=== PATIENT | female | born 1945 | race Two or more races ===

== ENCOUNTER 2024-09-13 16:19 | Inpatient (IN) | payer OTHER, MEDICAID, MEDICARE, SELFPAY ==
[2024-09-13] VITALS (7 sets, daily range): BP systolic 81–126; BP diastolic 49–71; PULSE 74–97; RESP 10–28; TEMP 36.3–36.6; O2SAT 92–100; BMI 15.5
--- NOTE | 2024-09-13 17:28 | XR_ITS ---
Examination: AP chest single view Technique: Upright AP chest single view Exam date and time: September 13, 2024 1736 hrs. Comparison October 19, 2023 Indications: Syncopal episodes today Findings: Extensive bilateral lung opacity Biapical pleural thickening Normal heart size Moderate osteopenia Impression: Extensive bilateral lung opacity, differential would include pneumonia, chronic parenchymal disease as well as underlying pulmonary fibrosis, clinical correlation advised
--- NOTE | 2024-09-13 17:28 | PD.EDRME ---
Rapid Medical Screening Exam RME Arrival date/time: 09/13/24 16:19 79-year-old female presents to the emergency department accompanied with daughter for complaints of generalized weakness fatigue decreased appetite and shortness of breath worsening over 1 week. I have greeted and performed a focused initial assessment of this patient. Initial appropriate labs ordered at this time. A comprehensive ED assessment and evaluation of the patient and analysis of all test and completion of medical decision making process will be conducted by additional ED provider. Chief Complaint: General Adult/Misc Complain Time Seen by Provider: 09/13/24 17:03 Vital signs: Vital Signs Temperature 97.9 F 09/13/24 16:31 Pulse Rate 97 09/13/24 16:31 Respiratory Rate 16 09/13/24 16:31 Blood Pressure 105/71 09/13/24 16:31 Pulse Oximetry (%) 99 09/13/24 16:31 Oxygen Delivery Method Room Air 09/13/24 16:31
[2024-09-13 18:20] LABS: Lactate (Lactic Acid) 1.8 mMol/L (0.4-2.0)
[2024-09-13 18:24] LABS: Basophils # (Auto) 0.1 Thou/mm3 (0.0-0.2); Basophils % (Auto) 1 % (0-2.5); Eosinophils % (Auto) 0 % (0-10); Hematocrit 50.1 % (36.0-46.0); Hemoglobin 16.7 g/dL (12.0-16.0); Immature Granulocytes % (Auto) 0 % (0-0); Immature Granulocytes Auto 0.02 Thou/mm3 (0.00-0.00); Lymphocytes # (Auto) 1.8 Thou/mm3 (1.0-4.8); Lymphocytes % (Auto) 23 % (10-50); Mean Corpuscular HGB Conc 33.3 g/dl (31.0-37.0); Mean Corpuscular Volume 93 fL (80-100); Monocytes # (Auto) 0.7 Thou/mm3 (0.0-0.8); Monocytes % (Auto) 9 % (0-12); Neutrophils # (Auto) 5.2 Thou/mm3 (1.8-7.7); Neutrophils % (Auto) 68 % (37-80); Nucleated Red Blood Cell % 0 /100 WBC (0); Platelet Count 136 Thou/mm3 (140-440); RDW Standard Deviation 52.4 fL (36.4-46.3); Red Blood Count 5.39 Miln/mm3 (4.00-5.20); White Blood Count 7.8 Thou/mm3 (3.6-11.0)
[2024-09-13 18:47] LABS: INR 1.1 (0.9-1.3); Partial Thromboplastin Time 27.2 Seconds (22.0-36.0)
[2024-09-13 18:52] LABS: Alanine Aminotransferase 21 U/L (10-49); Albumin/Globulin Ratio 1.3 (1.2-2.2); Alkaline Phosphatase 53 U/L (46-116); Anion Gap 10 (7-16); Aspartate Amino Transferase 41 U/L (0-34); BUN/Creatinine Ratio 18 Ratio (12-20); Bilirubin,Total 0.9 mg/dL (0.3-1.2); Blood Urea Nitrogen 22 mg/dL (9-23); Calcium 10.6 mg/dL (8.3-10.6); Calcium (Corrected) 10.6 mg/dL (8.5-10.1); Carbon Dioxide 29.8 mMol/L (20.0-31.0); Chloride 96 mMol/L (98-107); Creatinine (Component) 1.2 mg/dL (0.6-1.3); Estimated Creatinine Clearance 23.1 mL/min (>60); Globulin 3.1 gm/dL (2.3-3.5); Glucose 130 mg/dL (74-106); Osmolality,Calculated 277 (275-295); Potassium 4.5 mMol/L (3.4-5.1); Sodium 136 mMol/L (136-145); Total Protein 7.1 gm/dL (5.7-8.2); Troponin I < 0.020 ng/mL (0.0-0.045); eGFR 46 See Note
--- NOTE | 2024-09-13 19:55 | EDNOTE_ITS ---
ED General RME/HPI General Chief complaint: General Adult/Misc Complain Stated complaint: DECREASE INTAKE & WOUND TO COCCYX Time Seen by Provider: 09/13/24 17:03 Arrival date/time: 09/13/24 16:19 RME / HPI RME / HPI narrative: 09/13/24 16:19 79-year-old female presents to the emergency department accompanied with daughter for complaints of generalized weakness fatigue decreased appetite and shortness of breath worsening over 1 week. I have greeted and performed a focused initial assessment of this patient. Initial appropriate labs ordered at this time. A comprehensive ED assessment and evaluation of the patient and analysis of all test and completion of medical decision making process will be conducted by additional ED provider. ------ Dr. Callahan?s Main ED Evaluation: 79yo female with a recent diagnosis of dementia BIB her daughter presents to the ED for a chief complaint of decreased appetite. Daughter states the patient has not been eating and drinking fluids as much for the last 4 days. Daughter states she's noticed the patient started developing a bed sore on her bottom and was gasping for air last night. Daughter notes the patient has been more confused than usual. She wanted to take the patient in to see her PCP today, but they are on vacation, so she brought her in for evaluation. Patient reports associated shortness of breath. No further history provided. PCP: Jack Related Data Home Medications ?Medication ?Instructions ?Recorded ?Confirmed pantoprazole 40 mg tablet,delayed 40 mg PO DAILY 06/10/23 09/19/23 release propranolol 20 mg tablet 20 mg PO BID 06/10/23 09/19/23 Previous Rx's ?Medication ?Instructions ?Recorded lisinopril 20 mg tablet 20 mg PO QDAY 30 days #30 tabs 06/15/23 amoxicillin 500 mg-potassium 1 tab PO BID #20 tabs 09/21/23 clavulanate 125 mg tablet (Augmentin) doxycycline hyclate 100 mg capsule 100 mg PO BID #20 caps 09/21/23 Allergies Allergy/AdvReac Type Severity Reaction Status Date / Time acetaminophen Allergy Severe DIZZY Verified 09/13/24 16:23 hydrocodone Allergy Severe DIZZY Verified 09/13/24 16:23 codeine Allergy Mild MAKES ME Verified 09/13/24 16:23 SICK Review of Systems Review of Systems Systems Reviewed: All systems reviewed, normal except as documented Narrative Review of Systems: Gen: No fever, no chills, no weight loss, + decreased intake EYES: No discharge, no visual changes, no pain HEENT: No ear pain, no congestion, no sore throat PULM: + shortness of breath, no cough, no congestion CV: No chest pain, no dyspnea on exertion, no palpitations GI: No nausea, no vomiting, no diarrhea, no pain, no constipation : No frequency, no urgency, no dysuria Musc/skel: No joint pain, no back pain Skin: No rash. Warm and dry. + wound to buttocks Psyc: No hallucinations, no depression Heme/Lymph: No easy bleeding or bruising tendencies Neuro: No weakness, no headache Past Medical History Past Medical History NEUROLOGIC: Negative Neurological Disorders CARDIAC: Positive Cardiac Disorders and Hypertension; Negative Congestive Heart Failure RESPIRATORY: Positive Chronic Obstructive Pulmonary Disease (COPD), Asthma and Pulmonary Fibrosis GASTROINTESTINAL: Negative Gastrointestinal Disorders GENITOURINARY: Positive Genitourinary Disorders; Negative Renal Disease MUSCULOSKELETAL: Negative Musculoskeletal Disorders ENDOCRINE: Positive Hypothyroidism; Negative Endocrine Disorders, Diabetes Mellitus Type 1 or Diabetes Mellitus Type 2 HEMATOLOGIC: Negative Blood Disorders Surgical History SURGICAL: Positive Section Social History SMOKING STATUS: Never smoker SECOND HAND EXPOSURE: Yes ED Exam Narrative Physical exam: GENERAL APPEARANCE: alert and oriented x 4, well-developed, well-nourished, says 3-4 word sentences, in [id number] respiratory distress VITALS: All vitals were reviewed and the pulse ox is 92% on room air, which is slightly hypoxic according to my interpretation. HEENT: Normocephalic, atraumatic; pupils equal, round, reactive to light; EOMI; mucous membranes pink, moist; oropharynx clear NECK: Supple LUNGS: no wheezes, rales and rhonchi bilaterally, tachypneic HEART: Regular rate, regular rhythm; normal S1, S2; no murmurs ABDOMEN: non distended; normal BS; soft, no tenderness, no guarding, no rebound; no masses, no organomegaly, no hernia BACK: no CVA tenderness EXTREMITIES: atraumatic; no edema NEUROLOGIC: awake; alert and oriented x4; cranial nerves II-XII grossly intact; no focal sensory or motor deficits PSYCHIATRIC: appropriate mood and affect SKIN: warm, dry, normal color; no rashes Course Course Course Narrative: CXR is ordered for determining the etiology of shortness of breath. Quality Measures none Orders Category Date Time Status Bedside Blood Glucose NOW Care 09/13/24 17:28 Active Bedside COVID-19 Antigen Test NOW Care 09/13/24 20:14 Active Bedside Influenza A&B Antigen Test NOW Care 09/13/24 20:14 Active COVID-19 Screening Questionnaire NOW Care 09/13/24 20:09 Active Pharmacy Technician Per Diem STAT Care 09/13/24 17:28 Active Decision to Admit X1 Care 09/13/24 20:09 Active EKG (ED ONLY) *Do not use* NOW Care 09/13/24 17:28 Completed Miscellaneous Nursing Order NOW Care 09/13/24 20:12 Active EKG (ED Only) Stat Exams 09/13/24 17:28 Ordered XR chest 1V portable Stat Exams 09/13/24 17:28 Completed Blood Culture (Lab) Stat Lab 09/13/24 18:00 Received CBC Stat Lab 09/13/24 18:00 Completed Comprehensive Metabolic Panel Stat Lab 09/13/24 18:00 Completed Lactic Acid [Lactate (Lactic Acid)] Stat Lab 09/13/24 18:00 Completed Partial Thromboplastin Time Stat Lab 09/13/24 18:00 Completed Procalcitonin Stat Lab 09/13/24 18:00 Completed Prothrombin Time with INR Stat Lab 09/13/24 18:00 Completed Troponin I Stat Lab 09/13/24 18:00 Completed Urinalysis Stat Lab 09/13/24 20:01 Completed Urine Culture Stat Lab 09/13/24 20:01 Received Azithromycin Inj [Zithromax Inj] 500 mg Med 09/13/24 20:13 Active Sodium Chloride 0.9% 250 ml [Ns] 250 ml IV X1 Sodium Chloride 0.9% 1000 ml [Ns] 1,000 ml Med 09/13/24 20:16 Active IV 999 mls/hr cefTRIAXone/D5w 1gm IV premix [Rocephin/D5w 1gm IV Med 09/13/24 20:13 Active premix] 50 ml IV X1 Vital Signs Vital signs: Vital Signs Temperature 97.9 F 09/13/24 16:31 Pulse Rate 97 09/13/24 16:31 Respiratory Rate 16 09/13/24 16:31 Blood Pressure 105/71 09/13/24 16:31 Pulse Oximetry (%) 99 09/13/24 16:31 Oxygen Delivery Method Room Air 09/13/24 16:31 [facility] Patient data External records reviewed:: [facility] previous records (Per chart review, patient was admitted here on 09/16/23 for pneumonia.) Clinical information provided by:: patient Social determinants that could affect healthcare access:: none Patient has the following chronic illnesses:: COPD/ asthma, HTN, hypothyroidism, dementia How is presenting disease/condition affected by chronic disease/condition?: e xacerbated by Evaluation data The following diagnostics were reviewed and interpreted by me:: lab results, radiology exam(s) and EKG tracing(s) Lab and/or radiology exams considered but not ordered:: none Interpretation Summary: CBC is normal, CMP is normal, troponin is normal, Lactic Acid is normal, Procalcitonin is normal, UA shows the patient is dehydrated, according to my interpretation. EKG done at 1739, NSR, rate of 71, normal axis, no ectopy, no acute ischemia, according to my interpretation. ----- [facility] Report Signed Patient: ELIU MICHEL [facility]. Record#: [id number] Birthdate: 1945 Age/Sex: 79 / F Location: [facility] Attending Dr: Ordering Physician: Joseline Melo Date of Service: 09/13/24 Procedure(s): XR chest 1V portable Accession Number(s): [id number] cc: Eulogio Cote MD; Cristina Malcolm MD; Joseline Melo~ Examination: AP chest single view Technique: Upright AP chest single view Exam date and time: September 13, 2024 1736 hrs. Comparison October 19, 2023 Indications: Syncopal episodes today Findings: Extensive bilateral lung opacity Biapical pleural thickening Normal heart size Moderate osteopenia Impression: Extensive bilateral lung opacity, differential would include pneumonia, chronic parenchymal disease as well as underlying pulmonary fibrosis, clinical correlation advised Dictated By: Eulogio Cote MD Signed By: <Electronically signed by Eulogio Cote MD in [place]> 09/13/24 1801 Medications Medications considered but not ordered:: none Medication administrations:: Medication Administration History Ceftriaxone Sodium/Dextrose (Rocephin/D5w 1gm Iv Premix) 50 mls @ 100 mls/hr IV X1 ONE Stop: 09/13/24 20:42 Azithromycin 500 mg/ Sodium (Chloride) 250 mls @ 250 mls/hr IV X1 ONE Stop: 09/13/24 21:12 Sodium Chloride (Ns) 1,000 mls @ 999 mls/hr IV .Q1H1M ONE Stop: 09/13/24 21:16 see above Consultations Consultation(s) initiated? (list below): Yes Consultation #1 (Physician, Specialty, Details): Discussed case with [the resident physician, attending Dr. Cazares] from Hospitalist service regarding admission. Discussed patients ED course, exam findings, labs, and radiology results. The Hospitalist [agrees] to accept the patient for admission. Time: 20:18 Diagnosis Differential Diagnosis ED Complaint MDM: pneumonia, COVID, Influenza, dehydration, electrolyte abnormality Most likely diagnosis given after review of the tests above:: Hypoxia, Bilateral pneumonia, Dehydration, Failure to thrive Admission Indicated Admission indicated?: indicated Explain why admission is indicated or not indicated:: Admission criteria met. Admission Request Was there a request for admission?: Yes Admission Attestation Admission request attestation: Discussed case with [] from Hospitalist service regarding admission. Discussed patients ED course, exam findings, labs, and radiology results. The Hospitalist [agrees,declines] to accept the patient for admission. Disposition Plan Disposition Plan: Admit Medical Decision Making MDM Narrative MDM Narrative: Scribe Attestation: 09/13/24 - Jacklyn Chatterjee am scribing for and in the presence of Dr. Callahan. Differential Diagnosis Differential Diagnosis: pneumonia, COVID, Influenza, dehydration, electrolyte abnormality Lab Data 09/13/24 18:00 09/13/24 18:00 Labs: Lab Results 09/13/24 09/13/24 Range/Units 18:00 20:01 WBC 7.8 (3.6-11.0) Thou/mm3 RBC 5.39 H (4.00-5.20) Miln/mm3 Hgb 16.7 H (12.0-16.0) g/dL Hct 50.1 H (36.0-46.0) % MCV 93 (80-100) fL MCH 31.0 (25.0-35.0) pg MCHC 33.3 (31.0-37.0) g/dl RDW Std Deviation 52.4 H (36.4-46.3) fL Plt Count 136 L (140-440) Thou/mm3 Neut % (Auto) 68 (37-80) % Lymph % (Auto) 23 (10-50) % [place] % (Auto) 9 (0-12) % Eos % (Auto) 0 (0-10) % Baso % (Auto) 1 (0-2.5) % Neut # (Auto) 5.2 (1.8-7.7) Thou/mm3 Lymph # (Auto) 1.8 (1.0-4.8) Thou/mm3 [place] # (Auto) 0.7 (0.0-0.8) Thou/mm3 Eos # (Auto) 0.0 (0.0-0.5) Thou/mm3 Baso # (Auto) 0.1 (0.0-0.2) Thou/mm3 Immature Gran # (Auto) 0.02 H (0.00-0.00) Thou/mm3 Absolute Nucleated RBC 0.00 (0.00-0.00) Thou/mm3 Immature Gran % 0 (0-0) % Nucleated RBC % 0 (0) /100 WBC PT 12.0 (9.0-12.2) Seconds INR 1.1 (0.9-1.3) APTT 27.2 (22.0-36.0) Seconds Sodium 136 (136-145) mMol/L Potassium 4.5 (3.4-5.1) mMol/L Chloride 96 L (98-107) mMol/L Carbon Dioxide 29.8 (20.0-31.0) mMol/L Anion Gap 10 (7-16) BUN 22 (9-23) mg/dL Creatinine 1.2 (0.6-1.3) mg/dL Estim Creat Clear Calc 23.1 L (>60) mL/min eGFR 46 L (60 - ) See Note BUN/Creatinine Ratio 18 (12-20) Ratio Glucose 130 H (74-106) mg/dL Calculated Osmolality 277 (275-295) Lactic Acid 1.8 (0.4-2.0) mMol/L Calcium 10.6 (8.3-10.6) mg/dL Corrected Calcium 10.6 H (8.5-10.1) mg/dL Total Bilirubin 0.9 (0.3-1.2) mg/dL AST 41 H (0-34) U/L ALT 21 (10-49) U/L Alkaline Phosphatase 53 (46-116) U/L Troponin I < 0.020 (0.0-0.045) ng/mL Total Protein 7.1 (5.7-8.2) gm/dL Albumin 4.0 (3.4-4.8) gm/dL Globulin 3.1 (2.3-3.5) gm/dL Albumin/Globulin Ratio 1.3 (1.2-2.2) Procalcitonin 0.10 (0.0-0.49) ng/ml Ur Collection Type Catheter Urine Color Yellow (Lt Yel-Yel) Urine Clarity Clear (Clear/Hazy) Urine pH 6.0 (5.0-7.0) Ur Specific [place] 1.026 (1.001-1.035) Urine Protein 1+ A (Neg - Trace) Urine Glucose (UA) Negative (Negative) Urine Ketones 1+ A (Negative) Urine Blood Negative (Negative) Urine Nitrite Negative (Negative) Urine Bilirubin 1+ A (Negative) Urine Urobilinogen (Auto) 4.0 (0.0-1.0) mg/dL Ur Leukocyte Esterase Negative (Negative) Urine RBC 3 (0-3) /hpf Urine WBC 3 (0-5) /hpf Ur Squamous Epith Cells < 1 (0-5) /hpf Urine Bacteria None (None) Hyaline Casts 1 (0-1) /hpf Critical Care Time Critical Care Time Critical Care Time: Yes Total Critical Care Time (min.): 35 Attestation: The high probability of sudden, clinically significant deterioration in the patient?s condition required the highest level of my preparedness to intervene urgently. The services I provided to this patient were to treat and/or prevent clinically significant deterioration. Services included the following: chart data review, reviewing nursing notes and/or old charts, documentation time, sales enablement consultant collaboration regarding findings and treatment options, medication orders and management, direct patient care, vital sign assessments and ordering, interpreting and reviewing diagnostic studies and lab tests. Aggregate critical care time includes only time during which I was engaged in work directly related to the patient?s care, as described above, whether at bedside or elsewhere in the Emergency Department. It did not include time spent performing other reported procedures or the services of residents, students, nurses or physician assistants. Discharge Plan Plan Patient Disposition: Admit Acute Care w/in Hospital Prescriptions/Referrals Prescriptions/Med Rec: No Action doxycycline hyclate 100 mg capsule 100 mg PO BID Qty: 20 0RF amoxicillin-pot clavulanate [Augmentin] 500-125 mg tablet 1 tab PO BID Qty: 20 0RF pantoprazole 40 mg tablet,delayed release (DR/EC) 40 mg PO DAILY propranolol 20 mg tablet 20 mg PO BID lisinopril 20 mg tablet 20 mg PO QDAY 30 Days Qty: 30 3RF Referrals: Cristina Santiago MD [Primary Care Provider] - In 1 week Problem List Clinical Impression: Hypoxia, Bilateral pneumonia, Dehydration, Failure to thrive Patient/Caregiver Discharge Instructions Print Language: Ukrainian Stand Alone Forms: [facility] Award Info., Patient Portal Info Letter
[2024-09-13 20:12] LABS: Bilirubin,Urine 1+ (Negative); Blood,Urine Negative (Negative); Clarity,Urine Clear (Clear/Hazy); Collection Type, Urine Catheter; Color,Urine Yellow (Lt Yel-Yel); Glucose, Urine Negative (Negative); Hyaline Casts,Urine 1 /hpf (0-1); Ketones,Urine 1+ (Negative); Leukocyte Esterase,Urine Negative (Negative); Nitrite,Urine Negative (Negative); Protein,Urine 1+ (Neg - Trace); RBC,Urine 3 /hpf (0-3); Specific Gravity,Urine 1.026 (1.001-1.035); Squamous Epithelial Cell,Urine < 1 /hpf (0-5); WBC,Urine 3 /hpf (0-5)
[2024-09-13] MEDS: AZITHROMYCIN INJ 500 MG in SODIUM CHLORIDE 0.9% 250 ML 250 ML 250 MG IV (20:38)
[2024-09-13] MEDS: SODIUM CHLORIDE 0.9% 1000 ML 1,000 ML 999 ML IV (20:40)
[2024-09-13] MEDS: cefTRIAXone/D5w 1gm IV premix 50 ML IV (20:41)
[2024-09-13] MEDS: SODIUM CHLORIDE 0.9% 1000 ML 1,000 ML 100 ML IV (22:49)
[2024-09-13] MEDS: SODIUM CHLORIDE 0.9% 500 ML 500 ML 999 ML IV (22:49)
--- NOTE | 2024-09-13 23:21 | ESHP_ITS ---
Documentation for date of: 09/13/24 [facility] History of Present Illness Chief complaint: poor oral intake History of present illness: Patient is a 79-year-old female with past medical history significant for history of tobacco use, 30-pack year, chronic bronchiectasis with intersitital scarring, hypothyroidism, hypertension, dementia, GERD, depression who presented to the ED with shortness of breath and poor oral intake for the last 4 days. Most of the history was obtained from patient's daughter, Carmen who was at bedside as patient is a poor historian. Patient's baseline mentation is only alert and oriented x 1 to name. Per daughter, patient also has been having some abdominal pain especially on palpation. Patient is able to ambulate with walker, and uses a wheelchair when she leaves her home, however is mostly bedbound. Despite having poor oral intake, patient was able to successfully swallow her p.o. pain meds morning. Per daughter, patient denies any cough, chest pain, LE pain, dizziness, and headache. ROS: as mentioned above PMHx: as mentioned above PSHx: None FHx: Noncontributory Social: Lives with daughter Carmen; denies any recent smoking, EtoH use, or ilicit drug use Meds:Patient takes lisinopril 20 mg daily, pantoprazole 40 mg daily, propranolol 20 mg twice daily, donepezil 10 mg at bedtime, mirtazapine 15 mg at bedtime, levothyroxine 50 mcg daily Allergies: Per chart, patient is allergic to acetaminophen, hydrocodone, codeine ED course: In the ED, patient vital signs were unremarkable. Labs significant for dehydration, low platelet count, and slightly elevated calcium of 10.6. Lactic acid normal at 1.8. Pro-Hao negative. UA shows 1+ protein, 1+ ketones, 1+ bilirubin, but negative for UTI. Chest x-ray shows extensive bilateral lung opacity suggesting underlying chronic parenchymal disease. Patient given dose of ceftriaxone and azithromycin x 1 for possible pneumonia. Patient admitted to [facility] for further management of RHONDA. Review of Systems Review of Systems Systems Reviewed: All systems reviewed, normal except as documented Exam Vital Signs Temp Pulse Resp BP Pulse Ox O2 Del Method 97.6 F 74 16 105/51 L 100 Room Air 09/13/24 22:53 09/13/24 22:53 09/13/24 22:53 09/13/24 22:53 09/13/24 22:53 09/13/24 22:53 Narrative Exam General Appearance: Pt in mild acute distress laying comfortably in bed. HEENT: NC/AT, no scleral icterus, no conjunctival pallor, dry mucous membranes Lungs: Equal air entry, but diminished lung sounds throughout, no wheezes or crackles appreciated. No accessory muscle use. CVS: RRR, S1/S2 heard, no murmurs or rubs appreciated ABD: Mild epigastric tenderness to palpation, soft, non-tender, non-distended, BS + in all 4 quadrants EXT: no deformity/edema/lesions/cyanosis/clubbing, radial pulses 2+ BL, DP pulses 2 + BL SKIN: Skin exam normal without any rashes. Neuro: A&O x 1 (name). No gross neurological deficits. Motor and sensory grossly intact in B/L UL and LL. Results: Labs 09/14/24 05:51 09/13/24 18:00 Labs: Short CBC 09/13/24 Range/Units 18:00 WBC 7.8 (3.6-11.0) Thou/mm3 Hgb 16.7 H (12.0-16.0) g/dL Hct 50.1 H (36.0-46.0) % Plt Count 136 L (140-440) Thou/mm3 BMP 09/13/24 18:00 Sodium 136 Potassium 4.5 Chloride 96 L Carbon Dioxide 29.8 BUN 22 Creatinine 1.2 Glucose 130 H Calcium 10.6 Cardiac Enzymes 09/13/24 Range/Units 18:00 Troponin I < 0.020 (0.0-0.045) ng/mL Liver Function 09/13/24 Range/Units 18:00 Total Bilirubin 0.9 (0.3-1.2) mg/dL AST 41 H (0-34) U/L ALT 21 (10-49) U/L Alkaline Phosphatase 53 (46-116) U/L Albumin 4.0 (3.4-4.8) gm/dL Urine 09/13/24 Range/Units 20:01 Urine Color Yellow (Lt Yel-Yel) Urine Clarity Clear (Clear/Hazy) Urine pH 6.0 (5.0-7.0) Ur Specific [place] 1.026 (1.001-1.035) Urine Protein 1+ A (Neg - Trace) Urine Glucose (UA) Negative (Negative) Quality Measures Quality Measures none Advance care planning discussed with:: patient and child Medications Home Medications and Allergies Home Medications ?Medication ?Instructions ?Recorded ?Confirmed ?Type pantoprazole 40 mg tablet,delayed 40 mg PO DAILY 06/10/23 09/14/24 History release propranolol 20 mg tablet 20 mg PO BID 06/10/23 09/14/24 History donepezil 10 mg tablet (Aricept) 10 mg ONCE HS 09/14/24 09/14/24 History levothyroxine 50 mcg tablet 50 mcg 1XD 09/14/24 09/14/24 History mirtazapine 15 mg tablet 15 mg HS 09/14/24 09/14/24 History Allergies Allergy/AdvReac Type Severity Reaction Status Date / Time acetaminophen Allergy Severe DIZZY Verified 09/13/24 16:23 hydrocodone Allergy Severe DIZZY Verified 09/13/24 16:23 codeine Allergy Mild MAKES ME Verified 09/13/24 16:23 SICK Visit Medications Heparin Sodium (Porcine) (Heparin Sod Inj 5000 Unit/Ml Vial) 5,000 unit SC Q12HR [facility] Stop: 09/28/24 08:59 Sodium Chloride (Ns) 1,000 mls @ 100 mls/hr IV .Q10H SANDRA Stop: 10/13/24 22:14 Last Admin: 09/13/24 22:49 Dose: 100 mls/hr Pantoprazole Sodium (Pantoprazole Inj 40 Mg Vial) 40 mg IVP QDAY [facility] Stop: 10/14/24 08:59 Sennosides (Senna Tablet) 1 tab PO QDAY SANDRA; Protocol Stop: 10/14/24 08:59 Discontinued Medications Ceftriaxone Sodium/Dextrose (Rocephin/D5w 1gm Iv Premix) 50 mls @ 100 mls/hr IV X1 ONE Stop: 09/13/24 20:42 Last Infusion: 09/13/24 21:23 Dose: Infused Azithromycin 500 mg/ Sodium (Chloride) 250 mls @ 250 mls/hr IV X1 ONE Stop: 09/13/24 21:12 Last Infusion: 09/13/24 21:42 Dose: Infused Sodium Chloride (Ns) 1,000 mls @ 999 mls/hr IV .Q1H1M ONE Stop: 09/13/24 21:16 Last Infusion: 09/13/24 21:43 Dose: Infused Sodium Chloride (Ns) 500 mls @ 999 mls/hr IV .Q31M ONE Stop: 09/13/24 22:48 Last Infusion: 09/13/24 23:18 Dose: Infused Assessment & Plan Plan Patient is a 79-year-old female with past medical history significant for history of tobacco use, 30-pack year, chronic bronchiectasis with intersitital scarring, hypothyroidism, hypertension, dementia, GERD, depression who presented to the ED with shortness of breath and poor oral intake for the last 4 days admitted to [facility] for further management of RHONDA. #RHONDA #Dysphagia, unspecified Cr on presentation was 1.2. Baseline is 0.6. Most likely pre-renal d/t poor PO intake and dehydration 2/2 worsening dementia vs dysphagia, as patient's last oral intake was 4 days ago. Patient failed bedside swallow in the ED. Per patient's daughter, Sara, patient sometimes forgets to swallow her p.o. pain meds, and starts chewing them, but is redirectable. -Received a total of 1.5 L bolus NS -Will start a LR @100 ml/hr around 11 PM -Avoid nephrotoxin agents -Continue to monitor signs and symptoms -Speech eval in a.m. -CT head to assess for any structural changes due to new dysphagia-like symptoms #Dementia Patient takes home donepezil 10 mg at bedtime, patient's current mentation is at baseline, A and O x 1 to name -Restart home donepezil after patient passes bedside swallow -F/u with CT head -Consider Tele-neuro consult if patient's dysphagia worsens #Hx of chronic bronchiectasis with interstitial scarring Patient has an inhaler as needed at home. Patient also has a 30 pack smoking hx. Patient given Ceftriaxone and Azithromycin in the ED x 1. Patient doesn't appear to be having any acute infectious processes. At this time, will not start any antibiotics. #Hypothyroidism Patient takes home levothyroxine 50 mcg, however also takes propranolol 20 mg twice daily Patient does have a remote history of hyperthyroid dz and has taken propranolol with methimazole before. -Pending medication rec -Ordered TSH for AM #Hypertension Patient takes home lisinopril 20 mg -We will hold lisinopril for now and lieu of failed bedside swallow and RHONDA -Continue to monitor vital signs and consider IV as needed medication if blood pressure continues to rise #GERD Patient takes home pantoprazole 40 mg daily -Will start IV pantoprazole and lieu of failed bedside swallow -Transition to p.o. pantoprazole once patient is able to tolerate p.o. diet #Depression Patient takes home mirtazapine -Restart after patient passes bedside swallow and can tolerate p.o. intake Health Maintenance: DVT prophylaxis: Heparin subcu Diet: N.p.o., pending speech eval Irvin: No Lines: PIV Supplemental O2: As needed CODE STATUS: DNR/DNI, POLST form filled with PCP per Carmen, patient's daughter Disposition: Admitted to [facility] for further management of RHONDA and possible new onset dysphagia. Pending physical therapy for possible SNF. Patient's plan and care discussed with my attending, Dr. Sage De Luna MD PGY-2 Attending Provider Attestation/Addendum I, Sarbjit Cazares MD attest that I was physically present for the alves portions of the service and evaluated the patient with the resident and I reviewed and discussed the case with the resident and agree with the resident's findings and plans of care as documented above 79-year-old female with past medical history of chronic tobacco use, chronic bronchiectasis with scarring, hypothyroidism, hypertension, baseline dementia presents to the ED with chief complaint of shortness of breath, poor oral intake for the last 4 days. Patient has baseline dementia per daughter and her symptoms have acutely worsened and states that her mother has been refusing p.o. intake for the last 4 days. Labs show RHONDA likely prerenal secondary to poor intake, however unclear reason for acute changes in p.o. intake. Given fluid bolus in the ER and failed swallow eval, so will obtain formal swallow eval in the morning and continue patient on IV fluids with LR and repeat renal function in the a.m. Patient's daughter also expresses interest in SNF placement as she is unable to care for her at home in her current state and feels that she is progressively declining. CT head obtained and negative for any acute changes to suggest structural etiology of decreased p.o. intake and infectious workup all negative at this time. Sarbjit Cazares MD
--- NOTE | 2024-09-13 23:26 | PC.NURSE ---
REPORT CALLED TO MONA CHAVEZ. ALL QUESTIONS ASKED AND ANSWERED. PATIENT TRANSFERRED TO ROOM BY STAFF. PATIENT REMAINS ON ROOM AIR. NO DISTRESS ON TRANSPORT.
[2024-09-14] VITALS (8 sets, daily range): BP systolic 123–150; BP diastolic 69–96; PULSE 72–83; RESP 16–92; TEMP 36.1–36.6; O2SAT 91–100; BMI 17.0
--- NOTE | 2024-09-14 00:32 | XR_ITS ---
Examination: CT brain head without contrast. 2-D sagittal coronal reconstructions Date and time of exam:September 14, 2024 0235 hrs. Indications: Worsening dysphagia, syncopal episodes this week CTDI: vol (mGy):43.2 DLP: (mGycm):811 Technique: Multiple CT axial sections of the brain have been obtained, 5 mm slice thickness. Contrast has not been administered. 2-D sagittal, coronal reconstructions have been obtained Low dose protocols were performed. One or more of the following dose reduction techniques were used; automated exposure control, adjustment of the mA and/or KV according to patient size, use of iterative reconstruction technique. Findings: No significant ventricular enlargement. Intra-axial or extra-axial hemorrhage density is not seen. No mass effect or midline shift Basal cisterns are not remarkable. Fourth ventricle is midline. Cranial vault intact. Impression: Negative for acute hemorrhage, mass effect or midline shift
[2024-09-14 01:42] LABS: Free T4 (Free Thyroxine) 1.93 ng/dL (0.89-1.76)
--- NOTE | 2024-09-14 03:49 | PRELIM_ITS ---
CT scan of the head without intravenous contrast (axial sections with sagittal and coronal reformats) September 14, 2024 0235 hours Clinical history: worsening dysphagia Comparison: No prior study is ginette ilable for comparison. Findings:There is no evidence of intracranial hemorrhage, mass effect or midli ne shift. There are periventricular white matter hypodensities, compatible with chronic small vessel ischemia. There is mild volume loss. Basal ganglia calcifications are present bilaterally.The calvari um is unremarkable. The mastoid air cells and the visualized paranasal sinuses are clear.Impression:N o evidence of intracranial hemorrhage, mass effect or midline shift.Periventricular chronic small ves leanna ischemia and volume loss. Report Electronically Signed By: Sherrie Machado 09/14/2024 3:48:24 AM [EST ]
[2024-09-14 06:30] LABS: Basophils % (Auto) 1 % (0-2.5); Eosinophils % (Auto) 0 % (0-10); Hematocrit 46.3 % (36.0-46.0); Hemoglobin 15.1 g/dL (12.0-16.0); Immature Granulocytes % (Auto) 0 % (0-0); Immature Granulocytes Auto 0.01 Thou/mm3 (0.00-0.00); Lymphocytes # (Auto) 1.5 Thou/mm3 (1.0-4.8); Lymphocytes % (Auto) 25 % (10-50); Mean Corpuscular HGB Conc 32.6 g/dl (31.0-37.0); Mean Corpuscular Hemoglobin 31.1 pg (25.0-35.0); Mean Corpuscular Volume 96 fL (80-100); Monocytes # (Auto) 0.6 Thou/mm3 (0.0-0.8); Monocytes % (Auto) 9 % (0-12); Neutrophils # (Auto) 3.9 Thou/mm3 (1.8-7.7); Neutrophils % (Auto) 65 % (37-80); Nucleated Red Blood Cell % 0 /100 WBC (0); Platelet Count 120 Thou/mm3 (140-440); RDW Standard Deviation 54.4 fL (36.4-46.3); Red Blood Count 4.85 Miln/mm3 (4.00-5.20); White Blood Count 5.9 Thou/mm3 (3.6-11.0)
[2024-09-14 07:03] LABS: Alanine Aminotransferase 18 U/L (10-49); Albumin, Serum 3.4 gm/dL (3.4-4.8); Albumin/Globulin Ratio 1.4 (1.2-2.2); Alkaline Phosphatase 47 U/L (46-116); Anion Gap 6 (7-16); Aspartate Amino Transferase 29 U/L (0-34); BUN/Creatinine Ratio 23 Ratio (12-20); Bilirubin,Total 0.5 mg/dL (0.3-1.2); Blood Urea Nitrogen 18 mg/dL (9-23); Calcium 9.3 mg/dL (8.3-10.6); Calcium (Corrected) 9.8 mg/dL (8.5-10.1); Carbon Dioxide 25.7 mMol/L (20.0-31.0); Chloride 106 mMol/L (98-107); Creatinine (Component) 0.8 mg/dL (0.6-1.3); Estimated Creatinine Clearance 36.9 mL/min (>60); Globulin 2.5 gm/dL (2.3-3.5); Glucose 86 mg/dL (74-106); Magnesium 1.5 mg/dL (1.6-2.6); Osmolality,Calculated 276 (275-295); Phosphorous 3.1 mg/dL (2.4-5.1); Potassium 3.3 mMol/L (3.4-5.1); Sodium 138 mMol/L (136-145); Thyroid Stimulating Hormone 0.01 uIU/mL (0.55-4.78); Total Protein 5.9 gm/dL (5.7-8.2); eGFR > 60 See Note
[2024-09-14 08:48] LABS: Free T3 1.5 pg/mL (2.3-4.2)
[2024-09-14] MEDS: POTASSIUM CHL 10 mEq IVPB 10 MEQ/100 ML BAG 100 MEQ IV ×4 (09:14→13:01)
[2024-09-14] MEDS: Magnesium Sulfate 4 GM Ivpb 4 GM/50 ML BAG IV (09:15)
--- NOTE | 2024-09-14 09:35 | ESPR_ITS ---
<Statement entered by Rosmery Miller MD - 09/14/24 14:36> Patient is a 79 year old female with PMH of chronic tobacco use, chronic bronchiectasis with scarring, thyroid disease, HTN, baseline demention who presents to the ER for shortness of breath and poor oral intake, and admitted for dysphagia and RHONDA. For her RHONDA, she recieved IVF and RHONDA resolved; creatinine back to 0.8. Patient passed swallow eval today. Of note, patient TSH 0.01 with elevated T4. Will half her levothyroxine. Family expressed interest in SNF placement, so will get physical therapy eval for her as well. Rosmery Miller MD PGY-3 Documentation for date of: 09/14/24 Subjective Subjective Interval history: Patient was seen and examined at bedside this AM. No acute exents overnight. Patient tolerating diet, adequate urine output and mentation is at baseline dementia. Patient endorses improvement of appetite. Cr 0.8, K3.3, Mg 1.5 TSH 0.01 Repleted with KCl 40 mEq IV x 1 and magnesium sulfate 4 g IV x 1 Ordered thyroid peroxidase and thyroglobulin antibodies Exam Vital Signs Temp Pulse Resp BP Pulse Ox O2 Del Method 97.8 F 72 18 123/69 92 L Room Air 09/14/24 08:00 09/14/24 08:55 09/14/24 08:55 09/14/24 08:00 09/14/24 08:00 09/14/24 08:00 Narrative Exam Constitutional Alert, oriented x 1 [person] and comfortable. Elderly female, bitemporal wasting, cachectic. HEENT Vision grossly intact. Patent nares. Trachea midline Respiratory Chest normal on inspection and fine crackles auscultated at bases bilaterally Cardiovascular S1 and S2 audible, RRR. No murmurs carotid bruit. No gross JVD. Abdominal Soft and non tender to palpation in all quadrants. BS + Genitourinary No bladder tenderness, no flank pain. Normal to palpation Musculoskeletal Extremities tone within normal limits. No LE edema. Neurological CN II - XII grossly intact. Extremity motor and sensation grossly intact. R esting tremor Skin Warm, dry and intact. No apparent lesions. Psychiatric Patient has good affect, is cooperative Objective Labs 09/15/24 04:20 09/15/24 04:20 Labs: Laboratory Results - last 24 hr 09/13/24 09/13/24 09/13/24 18:00 18:06 20:01 WBC 7.8 RBC 5.39 H Hgb 16.7 H Hct 50.1 H MCV 93 MCH 31.0 MCHC 33.3 RDW Std Deviation 52.4 H Plt Count 136 L Neut % (Auto) 68 Lymph % (Auto) 23 [place] % (Auto) 9 Eos % (Auto) 0 Baso % (Auto) 1 Neut # (Auto) 5.2 Lymph # (Auto) 1.8 [place] # (Auto) 0.7 Eos # (Auto) 0.0 Baso # (Auto) 0.1 Immature Gran # (Auto) 0.02 H Absolute Nucleated RBC 0.00 Immature Gran % 0 Nucleated RBC % 0 PT 12.0 INR 1.1 APTT 27.2 Sodium 136 Potassium 4.5 Chloride 96 L Carbon Dioxide 29.8 Anion Gap 10 BUN 22 Creatinine 1.2 Estim Creat Clear Calc 23.1 L eGFR 46 L BUN/Creatinine Ratio 18 Glucose 130 H Calculated Osmolality 277 Lactic Acid 1.8 Calcium 10.6 Corrected Calcium 10.6 H Phosphorus Magnesium Total Bilirubin 0.9 AST 41 H ALT 21 Alkaline Phosphatase 53 Troponin I < 0.020 Total Protein 7.1 Albumin 4.0 Globulin 3.1 Albumin/Globulin Ratio 1.3 Procalcitonin 0.10 TSH Free T4 1.93 H Free T3 pg/dL Ur Collection Type Catheter Urine Color Yellow Urine Clarity Clear Urine pH 6.0 Ur Specific Collyer 1.026 Urine Protein 1+ A Urine Glucose (UA) Negative Urine Ketones 1+ A Urine Blood Negative Urine Nitrite Negative Urine Bilirubin 1+ A Urine Urobilinogen (Auto) 4.0 Ur Leukocyte Esterase Negative Urine RBC 3 Urine WBC 3 Ur Squamous Epith Cells < 1 Urine Bacteria None Hyaline Casts 1 09/14/24 05:51 WBC 5.9 RBC 4.85 Hgb 15.1 Hct 46.3 H MCV 96 MCH 31.1 MCHC 32.6 RDW Std Deviation 54.4 H Plt Count 120 L Neut % (Auto) 65 Lymph % (Auto) 25 [place] % (Auto) 9 Eos % (Auto) 0 Baso % (Auto) 1 Neut # (Auto) 3.9 Lymph # (Auto) 1.5 [place] # (Auto) 0.6 Eos # (Auto) 0.0 Baso # (Auto) 0.0 Immature Gran # (Auto) 0.01 H Absolute Nucleated RBC 0.00 Immature Gran % 0 Nucleated RBC % 0 PT INR APTT Sodium 138 Potassium 3.3 L D Chloride 106 Carbon Dioxide 25.7 Anion Gap 6 L BUN 18 Creatinine 0.8 Estim Creat Clear Calc 36.9 L eGFR > 60 BUN/Creatinine Ratio 23 H Glucose 86 Calculated Osmolality 276 Lactic Acid Calcium 9.3 Corrected Calcium 9.8 Phosphorus 3.1 Magnesium 1.5 L Total Bilirubin 0.5 AST 29 ALT 18 Alkaline Phosphatase 47 Troponin I Total Protein 5.9 Albumin 3.4 D Globulin 2.5 Albumin/Globulin Ratio 1.4 Procalcitonin TSH 0.01 L* Free T4 Free T3 pg/dL 1.5 L Ur Collection Type Urine Color Urine Clarity Urine pH Ur Specific [place] Urine Protein Urine Glucose (UA) Urine Ketones Urine Blood Urine Nitrite Urine Bilirubin Urine Urobilinogen (Auto) Ur Leukocyte Esterase Urine RBC Urine WBC Ur Squamous Epith Cells Urine Bacteria Hyaline Casts Quality Measures Quality Measures none Advance care planning discussed with:: other (POLST form) Assessment & Plan Assessment Current Active Medications: Generic Name Dose Route Start Last Admin Trade Name Freq PRN Reason Stop Dose Admin Albuterol 2 puff 09/14/24 00:21 Albuterol Inh 8 Gm INH 10/14/24 00:20 Q4HR PRN SHORTNESS OF BREATH OR WHEEZE Heparin Sodium (Porcine) 5,000 unit 09/14/24 09:00 Heparin Sod Inj 5000 Unit/Ml Vial SC 09/28/24 08:59 Q12HR SANDRA Sodium Chloride 1,000 mls @ 100 mls/hr 09/13/24 22:15 09/13/24 22:49 Ns IV 10/13/24 22:14 100 mls/hr .Q10H SANDRA Administration Magnesium Sulfate 4 gm in 50 mls @ 12.5 mls/hr 09/14/24 07:45 Magnesium Sulfate Ivpb IV 09/14/24 11:44 X1 ONE Potassium Chloride 10 meq in 100 mls @ 100 mls/hr 09/14/24 07:45 Kcl Ivpb IV 09/14/24 11:44 Q1H SANDRA Pantoprazole Sodium 40 mg 09/14/24 09:00 Pantoprazole Inj 40 Mg Vial IVP 10/14/24 08:59 QDAY SANDRA Sennosides 1 tab 09/14/24 09:00 Senna Tablet PO 10/14/24 08:59 QDAY [facility] Protocol Plan Patient is a 79-year-old female with past medical history significant for history of tobacco use, 30-pack year, chronic bronchiectasis with intersitital scarring, hypothyroidism, hypertension, dementia, GERD, depression who presented to the ED with shortness of breath and poor oral intake for the last 4 days. Admitted for RHONDA. 1. Acute kidney injury?resolving On admission CR 1.2. Baseline 0.6 Etiology most likely due to decreased oral intake. Patient's daughter stated that for the past 4 days patient has not eaten or drank much at all. Patient received 1.5 L normal saline bolus in the ED and was then started on maintenance lactated Ringer's at 100 cc/hour. Plan: ? Continue maintenance IVF ? Avoid nephrotoxic agents 2. Hypothyroidism Patient takes levothyroxine 50 mcg p.o. daily as home medication. Patient also had a history of taking methimazole earlier this year. 04/13/2023 she had a thyroid nuclear scan done which showed diffuse bilateral increased uptake suggestive of toxic multinodular goiter On this admission TSH 0.01 Plan: ? Decreased home medication levothyroxine 25 mcg p.o. daily from 50 mcg p.o. daily. ? Ordered thyroid peroxidase and thyroglobulin antibodies. 3. Protein calorie malnutrition 4. Dementia Patient's daughter stated that for the past 4 days patient has not eaten or drank much at all. Home medication donepezil 10 Mg p.o. at bedtime Patient's BMI 17 Speech language therapist assessed patient and recommended a pur?ed diet. Plan: ? Pur?ed diet ? Continue home medication donepezil 10 Mg p.o. at bedtime 5. Chronic bronchiectasis with interstitial scarring Patient has an inhaler as needed at home. Patient also has a 30 pack smoking hx. Chest x-ray on admission showed extensive bilateral lung opacities with biapical pleural thickening. From chart review this was similar to her previous x-rays as well. Procalcitonin 0.1 and no active signs of infection. 6. Essential hypertension Patient's BP 150/71 Home medication lisinopril 20 Mg p.o. daily Plan: ? Resumed home medication lisinopril 20 Mg p.o. daily 7. GERD Home medication pantoprazole 40 Mg daily Plan: ? Resumed home medication pantoprazole 40 Mg p.o. daily 8. Depression Home medication mirtazapine Plan: ? Resumed home medication mirtazapine 15mg po HS Health maintenance: Disposition: IV fluids Diet: Cardiac dysphagia II Lines: pIVs GI Prophylaxis: Pantoprazole Thrombo Prophylaxis: Heparin 5000 units SC twice daily Code status: DNR Plan of care discussed with Attending Dr. Guardado and PGY3 Dr. Paul Turner MD PGY 1 Attending Provider Attestation/Addendum Jimena Chatterjee, , attest that I was physically present for the alves portions of the service and evaluated the patient with the resident and I reviewed and discussed the case with the resident and agree with the resident's findings and plans of care as documented above Patient seen and evaluated this a.m. She appears to be calm and at baseline. She is alert and oriented x 1 to self. Patient has history of dementia. She is unsure why she is in the hospital. She denies any active abdominal pain, nausea, vomiting, chest pain or shortness of breath. No family at bedside at time of evaluation. There is no pain on palpation of abdomen, lungs are clear to auscultation bilaterally. Will have speech therapy see patient and advance diet as tolerated. Will speak to family regarding patient's active issues. TSH is 0.01 with mildly elevated free T4, suspect overtreatment with levothyroxine. Will half the dose to 25 mcg daily.
--- NOTE | 2024-09-14 09:39 | PC.SS ---
Patient Randi Cabrera is a 79 year old female admitted for RHONDA. SS met with patient at bedside. Patient was able to complete initial assessment. Patient reports she lives with her life partner, Cliff. Patient reports her surrogate decision maker is her daughter, Carmen Villa [phone]. Patient reports prior to admission she did not utilize any source of DME to assist with ambulation. Pt's reports that she is independent with ADL's. Pt reports her PCP is Dr. Santiago. At time of discharge patient would like to discharge home, Patient is open to HH if recommended. Family will provide transportation. Next of Kin daughter, Carmen Villa, Discharge Plan: Home
--- NOTE | 2024-09-14 09:39 | PCS.ST ---
Swallow Evaluatin completed. See report for details. Chronic oral dysphagia. Recommend Dysphagia 2 diet/regular liquids. ST will follow up.
[2024-09-14] MEDS: SENNA TABLET 1 TAB PO (11:03)
[2024-09-14] MEDS: HEPARIN SOD INJ 5000 UNIT/ML VIAL SC ×2 (11:03→20:07)
[2024-09-14] MEDS: PANTOPRAZOLE INJ 40 MG VIAL IVP (11:04)
[2024-09-14] MEDS: SODIUM CHLORIDE 0.9% 1000 ML 1,000 ML 100 ML IV ×2 (11:04→21:44)
--- NOTE | 2024-09-14 15:27 | PC.DIETICIAN ---
Patient is at significant risk for refeeding syndrome. 1. Recommend initiate a low-calorie, low-carbohydrate diet and gradually increase. 2. Closely monitor electrolytes (phosphorus, potassium, magnesium) and thiamine levels.
[2024-09-14] MEDS: Lisinopril 20 MG TABLET PO (16:33)
[2024-09-14] MEDS: MIRTAZAPINE 15 MG TABLET PO (20:07)
[2024-09-15] VITALS (8 sets, daily range): BP systolic 103–148; BP diastolic 61–91; PULSE 65–98; RESP 18–97; TEMP 36.1–36.6; O2SAT 93–98
[2024-09-15] MEDS: LEVOTHYROXINE SODIUM 25 MCG TABLET PO (05:15)
[2024-09-15 05:53] LABS: Basophils # (Auto) 0.1 Thou/mm3 (0.0-0.2); Basophils % (Auto) 1 % (0-2.5); Eosinophils % (Auto) 1 % (0-10); Hematocrit 50.3 % (36.0-46.0); Hemoglobin 16.2 g/dL (12.0-16.0); Immature Granulocytes % (Auto) 1 % (0-0); Immature Granulocytes Auto 0.03 Thou/mm3 (0.00-0.00); Lymphocytes # (Auto) 1.6 Thou/mm3 (1.0-4.8); Lymphocytes % (Auto) 24 % (10-50); Mean Corpuscular HGB Conc 32.2 g/dl (31.0-37.0); Mean Corpuscular Hemoglobin 30.8 pg (25.0-35.0); Mean Corpuscular Volume 96 fL (80-100); Monocytes # (Auto) 0.7 Thou/mm3 (0.0-0.8); Monocytes % (Auto) 10 % (0-12); Neutrophils # (Auto) 4.2 Thou/mm3 (1.8-7.7); Neutrophils % (Auto) 64 % (37-80); Nucleated Red Blood Cell % 0 /100 WBC (0); Platelet Count 101 Thou/mm3 (140-440); RDW Standard Deviation 55.5 fL (36.4-46.3); Red Blood Count 5.26 Miln/mm3 (4.00-5.20); White Blood Count 6.6 Thou/mm3 (3.6-11.0)
[2024-09-15 06:27] LABS: Alanine Aminotransferase 16 U/L (10-49); Albumin, Serum 3.3 gm/dL (3.4-4.8); Albumin/Globulin Ratio 1.4 (1.2-2.2); Alkaline Phosphatase 45 U/L (46-116); Anion Gap 12 (7-16); BUN/Creatinine Ratio 20 Ratio (12-20); Bilirubin,Total 0.4 mg/dL (0.3-1.2); Blood Urea Nitrogen 12 mg/dL (9-23); Calcium 9.1 mg/dL (8.3-10.6); Calcium (Corrected) 9.7 mg/dL (8.5-10.1); Carbon Dioxide 23.4 mMol/L (20.0-31.0); Chloride 106 mMol/L (98-107); Creatinine (Component) 0.6 mg/dL (0.6-1.3); Estimated Creatinine Clearance 49.1 mL/min (>60); Globulin 2.4 gm/dL (2.3-3.5); Glucose 83 mg/dL (74-106); Magnesium 2.1 mg/dL (1.6-2.6); Osmolality,Calculated 279 (275-295); Phosphorous 2.8 mg/dL (2.4-5.1); Potassium 4.4 mMol/L (3.4-5.1); Sodium 141 mMol/L (136-145); Total Protein 5.7 gm/dL (5.7-8.2); eGFR > 60 See Note
[2024-09-15 06:34] LABS: Aspartate Amino Transferase 26 U/L (0-34)
[2024-09-15] MEDS: HEPARIN SOD INJ 5000 UNIT/ML VIAL SC ×2 (08:22→20:09)
[2024-09-15] MEDS: Lisinopril 20 MG TABLET PO (08:22)
[2024-09-15] MEDS: SENNA TABLET 1 TAB PO (08:23)
[2024-09-15] MEDS: PANTOPRAZOLE INJ 40 MG VIAL IV (08:23)
--- NOTE | 2024-09-15 13:29 | PD.RESPRO ---
Documentation for date of: 09/15/24 Subjective Subjective Interval history: No acute problems overnight. This morning, patient awake, pleasant. No acute complaints. Patient's daughter and family members at bedside. They explain patient not wanting to eat or walk around at home over the last 3 weeks, and has worsening forgetfulness. Family expressed interest in rehab facility for patient. Regarding the patient's appetite and dysphagia, family expressed that patient likely will not want a PEG tube placement if it were to come to that in the future. Exam Vital Signs Temp Pulse Resp BP Pulse Ox O2 Del Method O2 Flow Rate 97.2 F 87 18 121/69 97 Room Air 2 09/15/24 12:00 09/15/24 12:00 09/15/24 12:00 09/15/24 12:00 09/15/24 12:00 09/15/24 12:00 09/15/24 11:18 Narrative Exam Constitutional: NAD. Awake, alert, pleasant. Resting comfortably. HEENT: NCAT. Vision grossly intact Respiratory: CTAB bilaterally. Cardiac: RRR. Abdomen: Soft, non-distended, non-tender. MSK: No B/L LE edema. Skin: Warm, dry, intact. No obvious lesions. Neuro: Motor and sensation grossly intact. Psychiatric: Appropriate mood and affect. Objective Labs 09/15/24 04:20 09/15/24 04:20 Labs: Laboratory Results - last 24 hr 09/15/24 04:20 WBC 6.6 RBC 5.26 H Hgb 16.2 H Hct 50.3 H MCV 96 MCH 30.8 MCHC 32.2 RDW Std Deviation 55.5 H Plt Count 101 L Neut % (Auto) 64 Lymph % (Auto) 24 [place] % (Auto) 10 Eos % (Auto) 1 Baso % (Auto) 1 Neut # (Auto) 4.2 Lymph # (Auto) 1.6 [place] # (Auto) 0.7 Eos # (Auto) 0.0 Baso # (Auto) 0.1 Immature Gran # (Auto) 0.03 H Absolute Nucleated RBC 0.00 Immature Gran % 1 H Nucleated RBC % 0 Sodium 141 Potassium 4.4 D Chloride 106 Carbon Dioxide 23.4 Anion Gap 12 BUN 12 Creatinine 0.6 Estim Creat Clear Calc 49.1 L eGFR > 60 BUN/Creatinine Ratio 20 Glucose 83 Calculated Osmolality 279 Calcium 9.1 Corrected Calcium 9.7 Phosphorus 2.8 Magnesium 2.1 Total Bilirubin 0.4 AST 26 ALT 16 Alkaline Phosphatase 45 L Total Protein 5.7 Albumin 3.3 L Globulin 2.4 Albumin/Globulin Ratio 1.4 Quality Measures Quality Measures none Advance care planning discussed with:: patient and child Assessment & Plan Assessment Current Active Medications: Generic Name Dose Route Start Last Admin Trade Name Freq PRN Reason Stop Dose Admin Albuterol 2 puff 09/14/24 00:21 Albuterol Inh 8 Gm INH 10/14/24 00:20 Q4HR PRN SHORTNESS OF BREATH OR WHEEZE Heparin Sodium (Porcine) 5,000 unit 09/14/24 09:00 09/15/24 08:22 Heparin Sod Inj 5000 Unit/Ml Vial SC 09/28/24 08:59 5,000 unit Q12HR SANDRA Administration Levothyroxine Sodium 25 mcg 09/15/24 06:00 09/15/24 05:15 Levothyroxine Sodium 25 Mcg Tablet PO 10/15/24 05:59 25 mcg ACBR SANDRA Administration Lisinopril 20 mg 09/14/24 14:30 09/15/24 08:22 Lisinopril 20 Mg Tablet PO 10/14/24 14:29 20 mg QDAY SANDRA Administration Mirtazapine 15 mg 09/14/24 21:00 09/14/24 20:07 Mirtazapine 15 Mg Tablet PO 10/14/24 20:59 15 mg HS SANDRA Administration Pantoprazole Sodium 40 mg 09/15/24 09:00 09/15/24 08:23 Pantoprazole Inj 40 Mg Vial IV 10/15/24 08:59 40 mg QDAY SANDRA Administration Sennosides 1 tab 09/14/24 09:00 09/15/24 08:23 Senna Tablet PO 10/14/24 08:59 1 tab QDAY SANDRA Administration Protocol Plan Patient is a 79-year-old female with past medical history significant for history of tobacco use, 30-pack year, chronic bronchiectasis with intersitital scarring, hypothyroidism, hypertension, dementia, GERD, depression who presented to the ED with shortness of breath and poor oral intake for the last 4 days and admitted for acute RHONDA. Protein calorie malnutrition Dementia Patient's daughter stated that for the past 4 days patient has not eaten or drank much at all. Patient's BMI 17 Speech language therapist assessed patient and recommended a pur?ed diet. - Pureed diet - On mirtazapine for depression and appetite - Frequent reorientation, delirium precautions Hypothyroidism Unclear history of thyroid disease - history of methmiazole and propanolol as well as levothyroxine. 04/13/2023 she had a thyroid nuclear scan done which showed diffuse bilateral increased uptake suggestive of toxic multinodular goiter Decreased home levothyroxine from 50mcg QDAY to 25mcg QDAY as TSH was 0.01 - Continue levothyroixine 25mg QDAY - Follow up TPO, thryoglobulin studies Essential hypertension ? Resumed home medication lisinopril 20 Mg p.o. daily GERD ? Resumed home medication pantoprazole 40 Mg p.o. daily Depression ? Resumed home medication mirtazapine 15mg po HS Chronic bronchiectasis with interstitial scarring Patient has an inhaler as needed at home. Patient also has a 30 pack smoking hx. Chest x-ray on admission showed extensive bilateral lung opacities with biapical pleural thickening. From chart review this was similar to her previous x-rays as well. Procalcitonin 0.1 and no active signs of infection. Health maintenance: Disposition: pending PT Diet: Cardiac dysphagia II Lines: pIVs GI Prophylaxis: Pantoprazole Thrombo Prophylaxis: Heparin 5000 units SC twice daily Code status: DNR I have reviewed and discussed the patient's care with my attending, Dr. Geo Miller MD PGY-3 Attending Provider Attestation/Addendum I, Jimena Guardado DO, attest that I was physically present for the alves portions of the service and evaluated the patient with the resident and I reviewed and discussed the case with the resident and agree with the resident's findings and plans of care as documented above Patient seen and evaluated this AM. Patient appears well, no acute events overnight. Patient has no active complaints. Granddaughter at bedside. Patient has been eating small amounts of food, remains on mirtazipine to boost appetite. Will need SNF placement as family is unable to care for her at home.
[2024-09-15] MEDS: MIRTAZAPINE 15 MG TABLET PO (20:09)
[2024-09-16] VITALS (10 sets, daily range): BP systolic 95–148; BP diastolic 61–94; PULSE 65–113; RESP 16–98; TEMP 35.8–36.4; O2SAT 97–100
[2024-09-16] MEDS: LEVOTHYROXINE SODIUM 25 MCG TABLET PO (05:32)
--- NOTE | 2024-09-16 05:37 | EKG_ITS ---
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
--- NOTE | 2024-09-16 05:37 | PC.NURSE ---
Dr mccartney notified of pt tachycardia from 110-115 no complaints of pain and all other vital signs within normal limits. Dr states she will put in an order for EKG.
[2024-09-16 06:10] LABS: Basophils # (Auto) 0.1 Thou/mm3 (0.0-0.2); Basophils % (Auto) 1 % (0-2.5); Eosinophils # (Auto) 0.1 Thou/mm3 (0.0-0.5); Eosinophils % (Auto) 1 % (0-10); Hematocrit 42.9 % (36.0-46.0); Hemoglobin 14.1 g/dL (12.0-16.0); Immature Granulocytes % (Auto) 0 % (0-0); Immature Granulocytes Auto 0.02 Thou/mm3 (0.00-0.00); Lymphocytes # (Auto) 1.4 Thou/mm3 (1.0-4.8); Lymphocytes % (Auto) 25 % (10-50); Mean Corpuscular HGB Conc 32.9 g/dl (31.0-37.0); Mean Corpuscular Hemoglobin 31.4 pg (25.0-35.0); Mean Corpuscular Volume 96 fL (80-100); Monocytes # (Auto) 0.6 Thou/mm3 (0.0-0.8); Monocytes % (Auto) 10 % (0-12); Neutrophils # (Auto) 3.5 Thou/mm3 (1.8-7.7); Neutrophils % (Auto) 63 % (37-80); Nucleated Red Blood Cell % 0 /100 WBC (0); Platelet Count 105 Thou/mm3 (140-440); RDW Standard Deviation 54.8 fL (36.4-46.3); Red Blood Count 4.49 Miln/mm3 (4.00-5.20); White Blood Count 5.6 Thou/mm3 (3.6-11.0)
[2024-09-16 06:20] LABS: Alanine Aminotransferase 14 U/L (10-49); Albumin, Serum 3.1 gm/dL (3.4-4.8); Albumin/Globulin Ratio 1.4 (1.2-2.2); Alkaline Phosphatase 43 U/L (46-116); Anion Gap 6 (7-16); Aspartate Amino Transferase 16 U/L (0-34); BUN/Creatinine Ratio 14 Ratio (12-20); Bilirubin,Total 0.4 mg/dL (0.3-1.2); Blood Urea Nitrogen 7 mg/dL (9-23); Calcium (Corrected) 9.7 mg/dL (8.5-10.1); Carbon Dioxide 31.3 mMol/L (20.0-31.0); Chloride 104 mMol/L (98-107); Creatinine (Component) 0.5 mg/dL (0.6-1.3); Globulin 2.2 gm/dL (2.3-3.5); Glucose 73 mg/dL (74-106); Magnesium 1.6 mg/dL (1.6-2.6); Osmolality,Calculated 278 (275-295); Phosphorous 2.4 mg/dL (2.4-5.1); Potassium 3.4 mMol/L (3.4-5.1); Sodium 141 mMol/L (136-145); Total Protein 5.3 gm/dL (5.7-8.2); eGFR > 60 See Note
[2024-09-16] MEDS: HEPARIN SOD INJ 5000 UNIT/ML VIAL SC ×2 (08:54→22:36)
[2024-09-16] MEDS: PANTOPRAZOLE INJ 40 MG VIAL IV (08:54)
[2024-09-16] MEDS: Lisinopril 20 MG TABLET PO (08:55)
[2024-09-16] MEDS: SENNA TABLET 1 TAB PO (08:55)
--- NOTE | 2024-09-16 10:10 | PCS.ST ---
SS follow up note; SS contacted patient's daughter Aimee in regards to discharge planning. She informed SS that she would like patient to discharge to SNF. SS informed her that patient was pending PT eval and SS would submit for auth once available. SS will submit SNF referral through [facility] and then follow up with patient's daughter in regards to SNF choices. SS margoth also submitt PASSR.
--- NOTE | 2024-09-16 10:22 | PC.SS ---
SS follow up note; Pending PASSR LEVEL 2 Clearance.
--- NOTE | 2024-09-16 11:54 | ESPR_ITS ---
<Statement entered by Rosmery Miller MD - 09/16/24 13:03> I discussed with and supervised my co-resident involved in the care of this patient. I agree with the assessment and plan as documented above. Patient seen and examined at bedside. Overnight, patient was tachycardic in the 100-110s, asymptomatic. This morning she is awake, alert, but not motivated to eat. Pending PT evaluation and SNF placement. Rosmery Miller MD PGY-3 Documentation for date of: 09/16/24 Subjective Subjective Interval history: 09/16: NAEO. Patient appears comfortable. VSS. RHONDA appears resolved. Patient denies any recent fevers, n/v, chest pain/productive sputum, abdominal pain, changes in urination or bowel movements, sensorineural changes. PT has not seen patient yesterday. Will pend PT exam and recommendations. Exam Vital Signs Temp Pulse Resp BP Pulse Ox O2 Del Method O2 Flow Rate 96.7 F L 113 H 20 138/74 H 100 Room Air 2 09/16/24 08:00 09/16/24 08:55 09/16/24 08:00 09/16/24 08:55 09/16/24 08:00 09/16/24 08:00 09/16/24 08:00 Narrative Exam Constitutional: NAD. Awake, alert, pleasant. Resting comfortably. HEENT: NCAT. Vision grossly intact Respiratory: CTAB bilaterally. Cardiac: RRR. Abdomen: Soft, non-distended, non-tender. MSK: No B/L LE edema. Skin: Warm, dry, intact. No obvious lesions. Neuro: Motor and sensation grossly intact. Psychiatric: Appropriate mood and affect. Objective Labs 09/16/24 04:49 09/16/24 04:49 Labs: Laboratory Results - last 24 hr 09/16/24 04:49 WBC 5.6 RBC 4.49 Hgb 14.1 D Hct 42.9 MCV 96 MCH 31.4 MCHC 32.9 RDW Std Deviation 54.8 H Plt Count 105 L Neut % (Auto) 63 Lymph % (Auto) 25 [place] % (Auto) 10 Eos % (Auto) 1 Baso % (Auto) 1 Neut # (Auto) 3.5 Lymph # (Auto) 1.4 [place] # (Auto) 0.6 Eos # (Auto) 0.1 Baso # (Auto) 0.1 Immature Gran # (Auto) 0.02 H Absolute Nucleated RBC 0.00 Immature Gran % 0 Nucleated RBC % 0 Sodium 141 Potassium 3.4 D Chloride 104 Carbon Dioxide 31.3 H Anion Gap 6 L BUN 7 L Creatinine 0.5 L Estim Creat Clear Calc 59.0 L eGFR > 60 BUN/Creatinine Ratio 14 Glucose 73 L Calculated Osmolality 278 Calcium 9.0 Corrected Calcium 9.7 Phosphorus 2.4 Magnesium 1.6 Total Bilirubin 0.4 AST 16 ALT 14 Alkaline Phosphatase 43 L Total Protein 5.3 L Albumin 3.1 L Globulin 2.2 L Albumin/Globulin Ratio 1.4 Quality Measures Quality Measures none Advance care planning discussed with:: child Assessment & Plan Assessment Current Active Medications: Generic Name Dose Route Start Last Admin Trade Name Freq PRN Reason Stop Dose Admin Albuterol 2 puff 09/14/24 00:21 Albuterol Inh 8 Gm INH 10/14/24 00:20 Q4HR PRN SHORTNESS OF BREATH OR WHEEZE Heparin Sodium (Porcine) 5,000 unit 09/14/24 09:00 09/16/24 08:54 Heparin Sod Inj 5000 Unit/Ml Vial SC 09/28/24 08:59 5,000 unit Q12HR SANDRA Administration Levothyroxine Sodium 25 mcg 09/15/24 06:00 09/16/24 05:32 Levothyroxine Sodium 25 Mcg Tablet PO 10/15/24 05:59 25 mcg ACBR SANDRA Administration Lisinopril 20 mg 09/14/24 14:30 09/16/24 08:55 Lisinopril 20 Mg Tablet PO 10/14/24 14:29 20 mg QDAY SANDRA Administration Mirtazapine 15 mg 09/14/24 21:00 09/15/24 20:09 Mirtazapine 15 Mg Tablet PO 10/14/24 20:59 15 mg HS SANDRA Administration Pantoprazole Sodium 40 mg 09/15/24 09:00 09/16/24 08:54 Pantoprazole Inj 40 Mg Vial IV 10/15/24 08:59 40 mg QDAY SANDRA Administration Sennosides 1 tab 09/14/24 09:00 09/16/24 08:55 Senna Tablet PO 10/14/24 08:59 1 tab QDAY SANDRA Administration Protocol Plan Patient is a 79-year-old female with past medical history significant for history of tobacco use, 30-pack year, chronic bronchiectasis with intersitital scarring, hypothyroidism, hypertension, dementia, GERD, depression who presented to the ED with shortness of breath and poor oral intake for the last 4 days and admitted for acute RHONDA. Protein calorie malnutrition Dementia Patient's daughter stated that for the past 4 days patient has not eaten or drank much at all. Patient's BMI 17 Speech language therapist assessed patient and recommended a pur?ed diet. - Pureed diet - On mirtazapine for depression and appetite - Frequent reorientation, delirium precautions Hypothyroidism Unclear history of thyroid disease - history of methmiazole and propanolol as well as levothyroxine. 04/13/2023 she had a thyroid nuclear scan done which showed diffuse bilateral increased uptake suggestive of toxic multinodular goiter Decreased home levothyroxine from 50mcg QDAY to 25mcg QDAY as TSH was 0.01 - Continue levothyroixine 25mg QDAY - Follow up TPO, thryoglobulin studies Essential hypertension ? Resumed home medication lisinopril 20 Mg p.o. daily GERD ? Resumed home medication pantoprazole 40 Mg p.o. daily Depression ? Resumed home medication mirtazapine 15mg po HS Chronic bronchiectasis with interstitial scarring Patient has an inhaler as needed at home. Patient also has a 30 pack smoking hx. Chest x-ray on admission showed extensive bilateral lung opacities with biapical pleural thickening. From chart review this was similar to her previous x-rays as well. Procalcitonin 0.1 and no active signs of infection. Health maintenance: Disposition: pending PT evaluation, recommendations Diet: Cardiac dysphagia II Lines: pIVs GI Prophylaxis: Pantoprazole Thrombo Prophylaxis: Heparin 5000 units SC twice daily Code status: DNR I have reviewed and discussed the patient's care with my attending, Dr. Geo Zarate DO, PGY-1 Attending Provider Attestation/Addendum I, Jimena Guardado DO, attest that I was physically present for the alves portions of the service and evaluated the patient with the resident and I reviewed and discussed the case with the resident and agree with the resident's findings and plans of care as documented above Patient seen and evaluated this a.m. Patient is resting comfortably. No acute events overnight. Pending placement to SNF. Patient is stable for discharge to SNF once that is arranged.
--- NOTE | 2024-09-16 14:35 | PC.SS ---
Addendum entered by HARVINDER Ramirez 09/16/24 15:41: Received call from Cristina, she informed that she reviewed patient's PT note and would like for patient to work with physical therapy again tomorrow and participate in order to determine need for SNF placement. Updated Dr. Miller and Physical Therapist, Irene. Addendum entered by HARVINDER Ramirez 09/16/24 15:34: Contacted Cristina at [facility] notifying that patient requires authorization as recommended for SNF placement. Cristina notified she would review patient's clinical notes. Addendum entered by HARVINDER Ramirez 09/16/24 15:10: Spoke with Irene from PT, she is aware we are pending PT note for patient's insurance to review. Original Note: Rounding note: patient is pending PT evaluation. Patient will need insurance authorization for SNF.
--- NOTE | 2024-09-16 20:32 | PC.NURSE ---
dr hayes notified of PLT 105, dr stated to hold 2100 heparin dose.
[2024-09-16] MEDS: MIRTAZAPINE 15 MG TABLET PO (20:36)
[2024-09-16] MEDS: SODIUM CHLORIDE 0.9% 500 ML 500 ML 125 ML IV (20:36)
--- NOTE | 2024-09-16 22:45 | PC.NURSE ---
Dr hayes notified of patients BP 95/61 HR 113, Dr states she will place an order for fluids.
--- NOTE | 2024-09-16 22:46 | PC.NURSE ---
Dr hayes states to give heparin scheduled for 2100 despite PLT 105 as she has reviewed the chart.
[2024-09-17] VITALS: BP 143/68; PULSE 111; RESP 16; TEMP 36.2; O2SAT 99
[2024-09-17 04:00] VITALS: BP 129/72; PULSE 111; RESP 16; TEMP 36.5; O2SAT 100
--- NOTE | 2024-09-17 04:42 | EKG_ITS ---
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
--- NOTE | 2024-09-17 04:45 | PC.NURSE ---
Dr hayes notified of pt HR sustaining in the 120-130's BP 129/72 no other symptoms reported at this time. Claudia states she will order an EKG.
[2024-09-17] MEDS: LEVOTHYROXINE SODIUM 25 MCG TABLET PO (05:20)
[2024-09-17 05:53] LABS: Basophils % (Auto) 1 % (0-2.5); Eosinophils % (Auto) 1 % (0-10); Hemoglobin 15.2 g/dL (12.0-16.0); Immature Granulocytes % (Auto) 1 % (0-0); Immature Granulocytes Auto 0.03 Thou/mm3 (0.00-0.00); Lymphocytes # (Auto) 1.5 Thou/mm3 (1.0-4.8); Lymphocytes % (Auto) 29 % (10-50); Mean Corpuscular HGB Conc 32.3 g/dl (31.0-37.0); Mean Corpuscular Hemoglobin 30.9 pg (25.0-35.0); Mean Corpuscular Volume 96 fL (80-100); Monocytes # (Auto) 0.7 Thou/mm3 (0.0-0.8); Monocytes % (Auto) 14 % (0-12); Neutrophils # (Auto) 2.9 Thou/mm3 (1.8-7.7); Neutrophils % (Auto) 56 % (37-80); Nucleated Red Blood Cell % 0 /100 WBC (0); Platelet Count 80 Thou/mm3 (140-440); RDW Standard Deviation 55.8 fL (36.4-46.3); Red Blood Count 4.92 Miln/mm3 (4.00-5.20); White Blood Count 5.2 Thou/mm3 (3.6-11.0)
--- NOTE | 2024-09-17 06:19 | PC.NURSE ---
notified DR gan regarding new order for metoprolol. Pts BP 129/72 HR 106. Trish stated to hold the metoprolol dose.
[2024-09-17 06:59] LABS: Alanine Aminotransferase 13 U/L (10-49); Albumin, Serum 3.1 gm/dL (3.4-4.8); Albumin/Globulin Ratio 1.3 (1.2-2.2); Alkaline Phosphatase 42 U/L (46-116); Anion Gap 8 (7-16); Aspartate Amino Transferase 15 U/L (0-34); BUN/Creatinine Ratio 10 Ratio (12-20); Bilirubin,Total 0.3 mg/dL (0.3-1.2); Blood Urea Nitrogen 6 mg/dL (9-23); Calcium 9.3 mg/dL (8.3-10.6); Carbon Dioxide 29.1 mMol/L (20.0-31.0); Chloride 105 mMol/L (98-107); Creatinine (Component) 0.6 mg/dL (0.6-1.3); Estimated Creatinine Clearance 49.1 mL/min (>60); Globulin 2.3 gm/dL (2.3-3.5); Glucose 86 mg/dL (74-106); Osmolality,Calculated 279 (275-295); Potassium 3.8 mMol/L (3.4-5.1); Sodium 142 mMol/L (136-145); Total Protein 5.4 gm/dL (5.7-8.2); eGFR > 60 See Note
[2024-09-17 07:38] VITALS: PULSE 93; RESP 100; RESP 18; O2SAT 100
[2024-09-17 08:00] VITALS: BP 105/48; PULSE 90; RESP 18; TEMP 36.6; O2SAT 94
[2024-09-17] MEDS: SENNA TABLET 1 TAB PO (08:28)
[2024-09-17] MEDS: HEPARIN SOD INJ 5000 UNIT/ML VIAL SC (08:29)
[2024-09-17] MEDS: PANTOPRAZOLE INJ 40 MG VIAL IV (08:29)
--- NOTE | 2024-09-17 09:13 | PC.SS ---
Addendum entered by HARVINDER Ramirez 09/17/24 09:15: Updated Anika at [facility]. Original Note: Per patient's insurance, the patient would need to participate with physical therapy today to determine if eligible for SNF. Updated Dr. Gonsalez and Physical TherapistIrene.
[2024-09-17 10:13] VITALS: BMI 12.0
--- NOTE | 2024-09-17 10:33 | PC.SS ---
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 Updated bedside nurse Nasreen, patient's daughter Carmen and Anika at [facility]. Addendum entered by HARVINDER Ramirez 09/17/24 14:19: Patient's daughter Carmen unable to pay for transport. [facility] transport services contacted for transportation. Pending ETA. Addendum entered by HARVINDER Ramirez 09/17/24 13:52: Attempted to set up transportation for the patient via [employer], however the staff member (Karen) informed the patient's [facility] [employer] insurance is non-active to schedule transportation. Addendum entered by HARVINDER Ramirez 09/17/24 13:45: Spoke with patient's daughter Carmen, who confirmed the d/c plan to [facility]. Reviewed with her the patient's Medicare rights. No further questions at this time. Addendum entered by HARVINDER Ramirez 09/17/24 12:48: Anika at [facility] called and informed they obtained authorization for the patient to go to SNF. Updated medical team. Pending DC orders. Addendum entered by HARVINDER Ramirez 09/17/24 12:26: Attempted contact with [facility], left a voicemail for them voicemail informed the office is now closed. Addendum entered by HARVINDER Ramirez 09/17/24 10:43: Sent a follow up email to Beatriz with [facility] to notify that clinicals were faxed for their review. Addendum entered by HARVINDER Ramirez 09/17/24 10:38: Faxed patient's clinicals to [facility], at [phone] for their review. Original Note: SS follow up: attempted contact with [facility], as PT notes are in, they were unavailable and left a voicemail with call back number.
[2024-09-17 12:00] VITALS: BP 112/73; PULSE 85; RESP 18; TEMP 36.4; O2SAT 95
--- NOTE | 2024-09-17 12:42 | PD.RESPRO ---
Documentation for date of: 09/17/24 Subjective Subjective Interval history: 09/16: NAEO. Patient appears comfortable. VSS. RHONDA appears resolved. Patient denies any recent fevers, n/v, chest pain/productive sputum, abdominal pain, changes in urination or bowel movements, sensorineural changes. PT has not seen patient yesterday. Will pend PT exam and recommendations. 09/17: Overnight team got a call from nursing patient was patient was given a 500 bolus which appeared to help. However still Tachycardic. Today in a.m. on exam blood pressure 129/72, 111 heart rate, 60 respiratory rate, afebrile saturating 100% on 4 L nasal cannula. Patient denies any new symptoms. Currently pending physical therapy evaluation possible SNF placement. Exam Vital Signs Temp Pulse Resp BP Pulse Ox O2 Del Method O2 Flow Rate 97.8 F 90 18 105/48 L 94 L Nasal Cannula 4 09/17/24 08:00 09/17/24 08:00 09/17/24 08:00 09/17/24 08:00 09/17/24 08:00 09/17/24 08:00 09/17/24 08:00 Narrative Exam Constitutional: NAD. Awake, alert, pleasant. Resting comfortably. HEENT: NCAT. Vision grossly intact Respiratory: CTAB bilaterally. Cardiac: RRR. Abdomen: Soft, non-distended, non-tender. MSK: No B/L LE edema. Skin: Warm, dry, intact. No obvious lesions. Neuro: Motor and sensation grossly intact. Psychiatric: Appropriate mood and affect. Objective Labs 09/17/24 05:04 09/17/24 05:04 Labs: Laboratory Results - last 24 hr 09/17/24 05:04 WBC 5.2 RBC 4.92 Hgb 15.2 Hct 47.0 H MCV 96 MCH 30.9 MCHC 32.3 RDW Std Deviation 55.8 H Plt Count 80 L D Neut % (Auto) 56 Lymph % (Auto) 29 [place] % (Auto) 14 H Eos % (Auto) 1 Baso % (Auto) 1 Neut # (Auto) 2.9 Lymph # (Auto) 1.5 [place] # (Auto) 0.7 Eos # (Auto) 0.0 Baso # (Auto) 0.0 Immature Gran # (Auto) 0.03 H Absolute Nucleated RBC 0.00 Immature Gran % 1 H Nucleated RBC % 0 Sodium 142 Potassium 3.8 Chloride 105 Carbon Dioxide 29.1 Anion Gap 8 BUN 6 L Creatinine 0.6 Estim Creat Clear Calc 49.1 L eGFR > 60 BUN/Creatinine Ratio 10 L Glucose 86 Calculated Osmolality 279 Calcium 9.3 Corrected Calcium 10.0 Total Bilirubin 0.3 AST 15 ALT 13 Alkaline Phosphatase 42 L Total Protein 5.4 L Albumin 3.1 L Globulin 2.3 Albumin/Globulin Ratio 1.3 Quality Measures Quality Measures none Assessment & Plan Assessment Current Active Medications: Generic Name Dose Route Start Last Admin Trade Name Freq PRN Reason Stop Dose Admin Albuterol 2 puff 09/14/24 00:21 Albuterol Inh 8 Gm INH 10/14/24 00:20 Q4HR PRN SHORTNESS OF BREATH OR WHEEZE Heparin Sodium (Porcine) 5,000 unit 09/14/24 09:00 09/17/24 08:29 Heparin Sod Inj 5000 Unit/Ml Vial SC 09/28/24 08:59 5,000 unit Q12HR SANDRA Administration Levothyroxine Sodium 25 mcg 09/15/24 06:00 09/17/24 05:20 Levothyroxine Sodium 25 Mcg Tablet PO 10/15/24 05:59 25 mcg ACBR SANDRA Administration Lisinopril 20 mg 09/14/24 14:30 09/16/24 08:55 Lisinopril 20 Mg Tablet PO 10/14/24 14:29 20 mg QDAY SANDRA Administration Mirtazapine 15 mg 09/14/24 21:00 09/16/24 20:36 Mirtazapine 15 Mg Tablet PO 10/14/24 20:59 15 mg HS SANDRA Administration Pantoprazole Sodium 40 mg 09/15/24 09:00 09/17/24 08:29 Pantoprazole Inj 40 Mg Vial IV 10/15/24 08:59 40 mg QDAY SANDRA Administration Sennosides 1 tab 09/14/24 09:00 09/17/24 08:28 Senna Tablet PO 10/14/24 08:59 1 tab QDAY SANDRA Administration Protocol Plan Patient is a 79-year-old female with past medical history significant for history of tobacco use, 30-pack year, chronic bronchiectasis with intersitital scarring, hypothyroidism, hypertension, dementia, GERD, depression who presented to the ED with shortness of breath and poor oral intake for the last 4 days and admitted for acute RHONDA. Protein calorie malnutrition Dementia Patient's daughter stated that for the past 4 days patient has not eaten or drank much at all. Patient's BMI 17 Speech language therapist assessed patient and recommended a pur?ed diet. - Pureed diet - On mirtazapine for depression and appetite - Frequent reorientation, delirium precautions Hypothyroidism Unclear history of thyroid disease - history of methmiazole and propanolol as well as levothyroxine. 04/13/2023 she had a thyroid nuclear scan done which showed diffuse bilateral increased uptake suggestive of toxic multinodular goiter Decreased home levothyroxine from 50mcg QDAY to 25mcg QDAY as TSH was 0.01 - Continue levothyroixine 25mg QDAY - Follow up TPO, thryoglobulin studies Essential hypertension ? home medication lisinopril 20 Mg held due to low blood pressures GERD ? Resumed home medication pantoprazole 40 Mg p.o. daily Depression ? Resumed home medication mirtazapine 15mg po HS Chronic bronchiectasis with interstitial scarring Patient has an inhaler as needed at home. Patient also has a 30 pack smoking hx. Chest x-ray on admission showed extensive bilateral lung opacities with biapical pleural thickening. From chart review this was similar to her previous x-rays as well. Procalcitonin 0.1 and no active signs of infection. Health maintenance: Disposition: pending PT evaluation, recommendations Diet: Cardiac dysphagia II Lines: pIVs GI Prophylaxis: Pantoprazole Thrombo Prophylaxis: Heparin 5000 units SC twice daily Code status: DNR I have reviewed and discussed the patient's care with my attending, Dr. Geo Zarate, DO, PGY-1
--- NOTE | 2024-09-17 12:49 | ESDS_ITS ---
<Statement entered by Jimena Guardado DO - 09/17/24 13:49> I, Jimena Guardado DO, attest that I was physically present for the alves portions of the service and evaluated the patient with the resident and I reviewed and discussed the case with the resident and agree with the resident's findings and plans of care as documented above <Statement entered by Los Gonsalez MD - 09/17/24 13:25> Patient seen and appears to be doing much better today. Patient was able to work with PT which recommended SNF placement. Family is in agreement with placement and patient is stable for discharge. Patient is to continue with rest of home medications. Patient started on levothyroxine 25 mcg and is to follow- up with her PCP for further recommendations. Case discussed with team. Los Gonsalez MD PGY3. Planned Discharge Date 09/17/24 DS: Providers Provider Date of admission: 09/13/24 23:40 Primary care physician: Cristina Santiago MD Admitting Provider: Dr. Jimena Guardado DO Attending Provider on Admission: Dr. Jimena Guardado DO Consults: 09/13/24 23:19 Referral Physical Therapy Routine Comment: Physician Instructions: Referral Speech Therapy Routine Comment: 09/14/24 17:38 Referral Wound Care Routine Comment: dry blanchable area to coccyx with dry flaky skin 09/14/24 17:39 Referral Registered Dietitian Routine Comment: poor appetite,dry blanchable area to coccyx Attending Provider on DC: Dr. Jimena Guardado DO Discharging Provider: Allen Zarate DO DS: Diagnosis Problem List Completed Was Problem List Reviewed/Reconciled?: Yes Hospital Course Hospital Course Hospital course: Protein calorie malnutrition RHONDA Dementia Hypothyroidism Essential hypertension GERD Depression Chronic bronchiectasis with interstitial scarring Patient is a 79-year-old female with past medical history significant for history of tobacco use, 30-pack year, chronic bronchiectasis with intersitital scarring, hypothyroidism, hypertension, dementia, GERD, depression who presented to the ED with shortness of breath and poor oral intake for the last 4 days. Most of the history was obtained from patient's daughter, Carmen who was at bedside as patient is a poor historian. Patient's baseline mentation is only alert and oriented x 1 to name. Per daughter, patient also has been having some abdominal pain especially on palpation. Patient is able to ambulate with walker, and uses a wheelchair when she leaves her home, however is mostly bedbound. Despite having poor oral intake, patient was able to successfully swallow her p.o. pain meds morning. Per daughter, patient denies any cough, chest pain, LE pain, dizziness, and headache. Over the course of patients hospital stay patient had a mild improvement of her appetite. Physical therapy reevaluated patient states that she appears to have a functional decline and is a very high fall risk. State the patient will greatly benefit from placement in a fpc facility where she can receive physical therapy to regain her strength. Patient's blood pressure was soft during her hospital stay, given fluids and held home blood pressure me dication. Appropriate blood pressure medication adjustments made upon discharge. Patient to follow-up with PCP in outpatient setting. Patient and family advised to return to emergency department if symptoms worsen or persist. Patient and family are in agreement with plan and amenable to discharge to SNF. Status at Discharge Cognitive/behavioral status at discharge: Stable at discharge Time Spent with Patient Time attestation: Total time spent providing and/or coordinating discharge services: >30min Exam Vital Signs Temp Pulse Resp BP Pulse Ox O2 Del Method O2 Flow Rate 97.8 F 90 18 105/48 L 94 L Nasal Cannula 4 09/17/24 08:00 09/17/24 08:00 09/17/24 08:00 09/17/24 08:00 09/17/24 08:00 09/17/24 08:00 09/17/24 08:00 Narrative Exam Constitutional: NAD. Awake, alert, pleasant. Resting comfortably. HEENT: NCAT. Vision grossly intact Respiratory: CTAB bilaterally. Cardiac: RRR. Abdomen: Soft, non-distended, non-tender. MSK: No B/L LE edema. Skin: Warm, dry, intact. No obvious lesions. Neuro: Motor and sensation grossly intact. Psychiatric: Appropriate mood and affect. Discharge Plan Plan Patient Disposition: Xfer Skilled [facility] (SNF) Prescriptions/Referrals Prescriptions/Med Rec: New levothyroxine 25 mcg Tablet 25 mcg PO ACBR 30 Days Qty: 30 0RF Continued pantoprazole 40 mg tablet,delayed release (DR/EC) 40 mg PO DAILY donepezil [Aricept] 10 mg Tablet 10 mg ONCE HS mirtazapine 15 mg tablet 15 mg HS Patient Comments: take 1 tablet by mouth at bedtime Discontinued propranolol 20 mg tablet 20 mg PO BID lisinopril 20 mg tablet 20 mg PO QDAY 30 Days Qty: 30 3RF levothyroxine 50 mcg tablet 50 mcg 1XD Patient Comments: take 1 tablet by mouth once daily Referrals: Cristina Santiago MD [Primary Care Provider] - Patient/Caregiver Discharge Instructions Print Language: Azeri Stand Alone Forms: [facility] Award Info., Patient Portal Info Letter Discharge Order Discharge Orders: Discharge (Routine); Ordered 09/17/24 Ordered By: Rosmery Miller Quality Discharge Quality Measures VTE prophylaxis
--- NOTE | 2024-09-17 15:05 | PC.NURSE ---
report called to [facility].
[2024-09-17 15:24] VITALS: BP 145/72; PULSE 126; RESP 18; TEMP 36.7; O2SAT 95
[2024-09-20 06:39] LABS: Thyroid Peroxidase Antibodies* <1 IU/mL (<9)
[2024-09-23 06:46] LABS: Thyroglobulin Antibodies* <1 IU/mL (< OR = 1)
== END 2024-09-17 15:34 | disposition skilled nursing facility (03) | DRG 682 ==
LOC: SERX 20:18 → S3NX 09-16 06:16 → SERHOLD 09-16 06:16
PROVIDERS: Nurse Practitioner Primary Care; Student in an Organized Health Care Education/Training Program; Admitting Provider Student in an Organized Health Care Education/Training Program; Emergency Provider Emergency Medicine; PCP Family Medicine; Visit Provider Student in an Organized Health Care Education/Training Program
DX: N17.9 Acute kidney failure, unspecified (principal); J18.9 Pneumonia, unspecified organism; J47.0 Bronchiectasis with acute lower respiratory infection; F03.93 Unspecified dementia, unspecified severity, with mood disturbance; E46 Unspecified protein-calorie malnutrition; Z68.1 Body mass index [BMI] 19.9 or less, adult; E03.9 Hypothyroidism, unspecified; I10 Essential (primary) hypertension; F32.A Depression, unspecified; K21.9 Gastro-esophageal reflux disease without esophagitis; E86.0 Dehydration; Z88.6 Allergy status to analgesic agent; Z87.891 Personal history of nicotine dependence; R13.10 Dysphagia, unspecified; Z66 Do not resuscitate
CPT/HCPCS: 36415; 70450; 71045; 80053; 81001; 83605; 83735; 84100; 84145; 84439; 84443; 84481; 84484; 85025; 85610; 85730; 86376; 86800; 87040; 87086; 87400; 87811; 92526; 92610; 93005; 94664; 96360; 96365; 96368; 97162; 99291; J0456; J0696; J1643; J2470; J3475; J3480; J7030; J7040; J7050; A9270; J1644

== ENCOUNTER 2024-11-09 21:41 | Inpatient (IN) | payer OTHER, MEDICAID, MEDICARE, SELFPAY ==
--- NOTE | 2024-11-09 21:44 | EKG_ITS ---
[facility] Test Date: 2024-11-09 Pat Name: ELIU MICHEL Department: Room: - Gender: Female [employer] Lead: : 1945 Requested By: Crystal Carlin Order Number: [id number] Reading MD: Crystal Carlin Measurements Intervals Darrow Rate: 105 P: 59 CO: 144 QRS: 48 QRSD: 89 T: 57 QT: 328 QTc: 435 Interpretive Statements SINUS TACHYCARDIA LEFT ATRIAL ENLARGEMENT [-0.15mV P WAVE IN V1/V2] Compared to ECG 09/17/2024 05:26:40 Atrial abnormality now present Myocardial infarct finding no longer present /store/S0/[id number]/ecg/[id number].pdf
--- NOTE | 2024-11-09 21:44 | XR_ITS ---
Examination: CT brain head without contrast. 2-D sagittal coronal reconstructions Date and time of exam: November 09, 2024 2147 hrs. Indications: Stroke alert, patient found down unconscious followed by altered mental status today CTDI: vol (mGy):46.7 DLP: (mGycm):910 Technique: Multiple CT axial sections of the brain have been obtained, 5 mm slice thickness. Contrast has not been administered. 2-D sagittal, coronal reconstructions have been obtained Low dose protocols were performed. One or more of the following dose reduction techniques were used; automated exposure control, adjustment of the mA and/or KV according to patient size, use of iterative reconstruction technique. Findings: No significant ventricular enlargement. Intra-axial or extra-axial hemorrhage density is not seen. No mass effect or midline shift Basal cisterns are not remarkable. Fourth ventricle is midline. Cranial vault intact. Impression: Negative for acute hemorrhage, mass effect or midline shift
--- NOTE | 2024-11-09 21:44 | PC.NURSE ---
PT AT CT , TELE NEUROLOGIST TALKING TO PT AND ASSESSING PT WITH JHOANA DUNN .
[2024-11-09 21:54] VITALS: PULSE 124
[2024-11-09 22:07] LABS: Basophils # (Auto) 0.1 Thou/mm3 (0.0-0.2); Basophils % (Auto) 1 % (0-2.5); Eosinophils # (Auto) 0.1 Thou/mm3 (0.0-0.5); Eosinophils % (Auto) 1 % (0-10); Hematocrit 41.4 % (36.0-46.0); Hemoglobin 13.7 g/dL (12.0-16.0); Immature Granulocytes % (Auto) 1 % (0-0); Immature Granulocytes Auto 0.08 Thou/mm3 (0.00-0.00); Lymphocytes # (Auto) 2.8 Thou/mm3 (1.0-4.8); Lymphocytes % (Auto) 25 % (10-50); Mean Corpuscular HGB Conc 33.1 g/dl (31.0-37.0); Mean Corpuscular Hemoglobin 31.6 pg (25.0-35.0); Mean Corpuscular Volume 96 fL (80-100); Monocytes # (Auto) 0.7 Thou/mm3 (0.0-0.8); Monocytes % (Auto) 6 % (0-12); Neutrophils # (Auto) 7.4 Thou/mm3 (1.8-7.7); Neutrophils % (Auto) 67 % (37-80); Nucleated Red Blood Cell % 0 /100 WBC (0); Platelet Count 185 Thou/mm3 (140-440); RDW Standard Deviation 47.4 fL (36.4-46.3); Red Blood Count 4.33 Miln/mm3 (4.00-5.20); White Blood Count 11.1 Thou/mm3 (3.6-11.0)
[2024-11-09 22:09] VITALS: RESP 98
[2024-11-09 22:10] VITALS: PULSE 107
--- NOTE | 2024-11-09 22:11 | PD.TNEURO ---
Tele Neuro Consultation Consultation Date 11/09/24 Most Recent Vital Signs Last Vital Signs Pulse 107 H 11/09/24 22:10 O2 Flow Rate 2 11/09/24 22:09 Consultation Narrative [facility] Patient Name:???Randi Cabrera Date of :???1945 Identification Number:??? Date of Service:???11/09/2024 21:40:57 Diagnosis:?G93.49 - Encephalopathy Multifactorial Impression: ?Decreased alertness/responsiveness with generalized weakness after a fall; there are no localizing neurological findings on exam to suggest acute stroke, and there is evidence of head trauma, therefore IV thrombolysis was not recommended. Clinical presentation is most consistent with encephalopathy superimposed on baseline dementia, with concern for infection given tachycardia and hypoxia, though concussion is also possible. ? ?Recommendations: ?- Metabolic/infectious workup per ED/primary team ?- Trauma workup per ED given fall ?- No additional neurological recommendations at this time. If there is concern for new focal neurological deficits after correction of systemic factors could consider MRI brain. Our recommendations are outlined below. Recommendations: ? Stroke/Telemetry Floor ? Neuro Checks ? Bedside Swallow Eval ? DVT Prophylaxis ? IV Fluids, Normal Saline ? Head of Bed 30 Degrees ? Euglycemia and Avoid Hyperthermia (PRN Acetaminophen) Sign Out: ? Discussed with Emergency Department Provider Advanced Imaging: Advanced Imaging Deferred because: Poor functional status at baseline, a greater risk than benefit with acute intervention Metrics: Last Known Well: 11/09/2024 21:05:00 Dispatch Time: 11/09/2024 21:40:56 Arrival Time: 11/09/2024 21:45:24 Initial Response Time: 11/09/2024 21:44:04Symptoms: found down, confused. Initial patient interaction: 11/09/2024 21:50:59 NIHSS Assessment Completed: 11/09/2024 21:54:49Patient is not a candidate for Thrombolytic. Thrombolytic Medical Decision: 11/09/2024 21:54:50Patient was not deemed candidate for Thrombolytic because of following reasons: other diagnosis suspected fall/head trauma, encephalopathy. I personally Reviewed the CT Head and it Showed no acute hemorrhage Primary Provider Notified of Diagnostic Impression and Management Plan on: 11/09/2024 22:03:56 History of Present Illness:Patient is a 79 year old Female. Patient was brought by EMS for symptoms of found down, confused. Patient is a 79 year old woman presenting via EMS from her nursing facility after a fall. Per EMS report, she was last seen at baseline at 21:05, but was then found face down on the ground at 21:18. She is poorly responsive, with blood around her nose and mouth. She appears dyspneic, and is satting 85% on room air. No lateralized weakness/numbness or gaze deviation noted. No reported seizure history. She has a history of multiple admissions for pneumonia and failure to thrive. Past Medical History: ?Hypertension ?Dementia/MCI ?There is no history of Diabetes Mellitus ?There is no history of Hyperlipidemia ?There is no history of Atrial Fibrillation ?There is no history of Stroke Other PMH:? GERD Past Hospitalization:??Recurrent admissions for pneumonia and failure to thrive Medications: No Anticoagulant use? Antiplatelet use:?Unknown Reviewed EMR for current medications Other Medications Pertinent To Assessment Include: donepezil, mirtazapine, pantoprazole Allergies:? Reviewed Description:?tylenol, hydrocodone, codeine Social History: Smoking: Yes Family History: There is no family history of premature cerebrovascular disease pertinent to this consultation ROS : 14 Points Review of Systems was performed and was negative except mentioned in HPI. Past Surgical History: There Is No Surgical History Contributory To Today?s Visit NIHSS may not be reliable due to: Patient lethargy/encephalopathy Examination: BP(220/100),?Pulse(126),?Blood Glucose(170) 1A: Level of Consciousness - Requires repeated stimulation to arouse?+ 2 1B: Ask Month and Age - Could Not Answer Either Question Correctly?+ 2 1C: Blink Eyes & Squeeze Hands - Performs 0 Tasks?+ 2 2: Test Horizontal Extraocular Movements - Normal?+ 0 3: Test Visual Jordan - No Visual Loss?+ 0 4: Test Facial Palsy (Use Grimace if Obtunded) - Normal symmetry?+ 0 5A: Test Left Arm Motor Drift - Drift, hits bed?+ 2 5B: Test Right Arm Motor Drift - Drift, hits bed?+ 2 6A: Test Left Leg Motor Drift - No Effort Against Stout?+ 3 6B: Test Right Leg Motor Drift - No Effort Against Stout?+ 3 7: Test Limb Ataxia (FNF/Heel-Lopez) - Does Not Understand?+ 0 8: Test Sensation - Normal; No sensory loss?+ 0 9: Test Language/Aphasia - Severe Aphasia: Fragmentary Expression, Inference Needed, Cannot Identify Materials?+ 2 10: Test Dysarthria - Mute/Anarthric?+ 2 11: Test Extinction/Inattention - No abnormality?+ 0 NIHSS Score:?20 Pre-Morbid Modified Veronica Scale:4 Points = Moderately severe disability; unable to walk and attend to bodily needs without assistance Spoke with :?Dr. Ray This consult was conducted in real time using interactive audio and video technology. Patient was informed of the technology being used for this visit and agreed to proceed. Patient located in hospital and provider located at home/office setting. Patient is being evaluated for possible acute neurologic impairment and high probability of imminent or life-threatening deterioration. I spent total of 30 minutes providing care to this patient, including time for face to face visit via telemedicine, review of medical records, imaging studies and discussion of findings with providers, the patient and/or family. Dr Vianca Hong [facility] For Inpatient follow-up with [facility] physician please call [facility] at . As we are not an outpatient service for any post hospital discharge needs please contact the hospital for assistance. If you have any questions for the [facility] physicians or need to reconsult for clinical or diagnostic changes please contact us via [facility] at .
[2024-11-09 22:12] VITALS: BP 179/93; PULSE 106; RESP 18; TEMP 36.2; O2SAT 98
[2024-11-09 22:17] LABS: Partial Thromboplastin Time 30.2 Seconds (22.0-36.0); Prothrombin Time 10.9 Seconds (9.0-12.2)
[2024-11-09 22:40] LABS: Collection Type, Urine Catheter; Squamous Epithelial Cell,Urine 0 /hpf (0-5)
--- NOTE | 2024-11-09 22:41 | PC.NURSE ---
PT BROUGHT TO ER BY [facility] , EMS REPORTED PT FOUND DOWN BESIDE HER BED, PT IS ALTERED AT THIS TIME, STROKE ALERT CALLED , EMS STRAIGHT TO CT.
[2024-11-09 22:44] LABS: Bilirubin,Urine Negative (Negative); Blood,Urine Negative (Negative); Clarity,Urine Clear (Clear/Hazy); Color,Urine Yellow (Lt Yel-Yel); Glucose, Urine Trace (Negative); Ketones,Urine Negative (Negative); Leukocyte Esterase,Urine Negative (Negative); Nitrite,Urine Negative (Negative); PH,Urine 6.5 (5.0-7.0); Protein,Urine 1+ (Neg - Trace); RBC,Urine 2 /hpf (0-3); Specific Gravity,Urine 1.015 (1.001-1.035); Urobilinogen,Urine Negative mg/dL (0.0-1.0); WBC,Urine < 1 /hpf (0-5)
[2024-11-09 22:45] LABS: B-Type Natriuretic Peptide 43 pg/mL (0-100)
[2024-11-09 22:47] LABS: Anion Gap 6 (7-16); BUN/Creatinine Ratio 30 Ratio (12-20); Blood Urea Nitrogen 18 mg/dL (9-23); Calcium 10.1 mg/dL (8.3-10.6); Carbon Dioxide 31.9 mMol/L (20.0-31.0); Chloride 98 mMol/L (98-107); Creatinine (Component) 0.6 mg/dL (0.6-1.3); Glucose 187 mg/dL (74-106); Osmolality,Calculated 278 (275-295); Potassium 4.1 mMol/L (3.4-5.1); Sodium 136 mMol/L (136-145); eGFR > 60 See Note
[2024-11-09 22:48] LABS: Base Excess 3 (-3-3); HCO3 35 mEq/L (20-26); Inspired Oxygen, FIO2 28 %; O2 Saturation 99 % (91-98); PCO2 93 mmHg (32.0-48.0); PO2 159 mmHg (83-108)
[2024-11-09 22:48] LABS: Alanine Aminotransferase 25 U/L (10-49); Albumin, Serum 4.2 gm/dL (3.4-4.8); Albumin/Globulin Ratio 1.3 (1.2-2.2); Alkaline Phosphatase 87 U/L (46-116); Aspartate Amino Transferase 37 U/L (0-34); Bilirubin,Total 0.3 mg/dL (0.3-1.2); Calcium (Corrected) 10.1 mg/dL (8.5-10.1); Globulin 3.2 gm/dL (2.3-3.5); Total Protein 7.4 gm/dL (5.7-8.2); Troponin I < 0.020 ng/mL (0.0-0.045)
[2024-11-09 22:58] LABS: Allen Test Performed/OK; Puncture Site Right Radial; pH, Arterial 7.18 (7.35-7.45)
[2024-11-09 23:01] VITALS: BP 173/87; PULSE 107; RESP 18; O2SAT 100
--- NOTE | 2024-11-09 23:27 | XR_ITS ---
Examination: AP chest single view Technique one AP upright portable chest single view Exam date and time: November 09, 2024 11:39 PM Comparison September 13, 2024 Indications: Onset chest pain today Findings: Extensive bilateral parenchymal disease Normal heart size Biapical pleural thickening Ectatic calcified thoracic aorta impression: Again noted extensive bilateral parenchymal disease Please see the CT chest report September 17, 2023
--- NOTE | 2024-11-09 23:33 | EVENTNT_ITS ---
Documentation for date of: 11/09/24 Event Note Event Note: A 79-year-old female presented via EMS from her nursing facility after being found down and confused. Per EMS, she was last seen at baseline at 21:05 but was found face down on the ground at 21:18. She was poorly responsive, with blood around her nose and mouth. She appeared dyspneic and had an oxygen saturation of 85% on room air. No lateralized weakness, numbness, or gaze deviation was noted. There was no reported seizure history. The patient has a history of multiple admissions for pneumonia and failure to thrive. Per family, her last admission was in August 2024 for protein-calorie malnutrition. Her baseline mentation is alert and oriented only to name. She ambulates with a walker but is mostly bedbound. She is DNR/DNI. In the Emergency Department, her vital signs were: temperature 97.1?F, heart rate 107 bpm, respiratory rate 18 breaths per minute, and blood pressure 179/93 mmHg. Laboratory results showed WBC 11.1, hemoglobin 13.7, platelets 185, sodium 136, potassium 4.1, BUN 18, creatinine 0.6, and glucose 187. Urinalysis showed WBC <1. ABG revealed pH 7.18, CO2 93, O2 159, and HCO3 35. A CT head was negative for acute hemorrhage, mass effect, or midline shift. EKG showed sinus tachycardia. CXR showed extensive bilateral lung opacity. A stroke alert was activated. Neurology evaluated the patient and found no localizing neurological deficits to suggest an acute stroke. Given the presence of head trauma, IV thrombolysis was not recommended. The clinical presentation was deemed most consistent with encephalopathy superimposed on baseline dementia, with concerns for infection given tachycardia and hypoxia, though concussion was also considered. The patient was admitted for further management. Hypercapnic Respiratory Failure #Assessment: * The patient presents with altered mental status, hypoxia (SpO2 85% on room air), and hypercapnia (ABG: pH 7.18, CO2 93, HCO3 35), consistent with acute on chronic hypercapnic respiratory failure. * Extensive bilateral lung opacities on CXR raise concern for pneumonia as a precipitating factor. * Tachycardia (HR 107) and history of recurrent pneumonia suggest underlying chronic lung disease or neuromuscular weakness contributing to impaired ventilation. * Baseline frailty, DNR/DNI status, and probable advanced dementia limit aggressive interventions. #Plan: * Initiate BiPAP to improve ventilation and correct hypercapnia. Serial ABGs to assess ventilation response. * Empiric coverage for pneumonia (ceftriaxone + azithromycin). * Goals of care discussion: Given the recurrent hospitalizations and frailty, reassess with family regarding continued escalation of care versus palliative approach.
--- NOTE | 2024-11-09 23:38 | PC.NURSE ---
WHEN TELE NEUROLOGIST WAS ASSESSING PT AT CT, SAID NO NEED FOR CTA.
--- NOTE | 2024-11-09 23:44 | PD.EDFALL ---
ED Fall Injury RME/HPI General Chief Complaint: Fall Stated Complaint: FELL,ALTERED MENTAL STATUS Time Seen by Provider: 11/09/24 21:44 Source: EMS Arrival date/time: 11/09/24 21:41 Mode of arrival: EMS Limitations: altered mental status RME / HPI RME / HPI Narrative: DR RAY MAIN ED EVALUATION: 79-year-old female with a past medical history significant for chronic bronchiectasis with scarring, hypothyroidism, hypertension, dementia, and depression. Notably, she was recently started on mirtazapine and donepezil following her discharge to a nursing facility. Her daughter, who is present at the bedside, reports that the patient was at her normal baseline when visited by a family member this morning. However, later that day, the long-term contacted the family to report that the patient had been found face down on the floor following an unwitnessed fall; the duration of her downtime remains unknown. The daughter denies any history of fever, cough, or seizures. She also mentioned that while the patient is capable of ambulating independently within her room and to the restroom, she requires wheelchair assistance for longer distances. Related Data Home Medications ?Medication ?Instructions ?Recorded ?Confirmed pantoprazole 40 mg tablet,delayed 40 mg PO DAILY 06/10/23 11/10/24 release donepezil 10 mg tablet (Aricept) 10 mg PO ONCE HS 09/14/24 11/10/24 mirtazapine 15 mg tablet 15 mg PO HS 09/14/24 11/10/24 levothyroxine 25 mcg tablet 25 mcg PO DAILY 11/10/24 11/10/24 Allergies Allergy/AdvReac Type Severity Reaction Status Date / Time acetaminophen Allergy Severe DIZZY Verified 09/13/24 16:23 hydrocodone Allergy Severe DIZZY Verified 09/13/24 16:23 codeine Allergy Mild MAKES ME Verified 09/13/24 16:23 SICK Review of Systems Review of Systems Systems Reviewed: All systems reviewed, normal except as documented Past Medical History Past Medical History NEUROLOGIC: Positive Neurological Disorders and Dementia CARDIAC: Positive Cardiac Disorders, Hypercholesterolemia and Hypertension; Negative Congestive Heart Failure RESPIRATORY: Positive Chronic Obstructive Pulmonary Disease (COPD), Asthma and Pulmonary Fibrosis GASTROINTESTINAL: Negative Gastrointestinal Disorders or Hepatitis GENITOURINARY: Positive Genitourinary Disorders; Negative Renal Disease MUSCULOSKELETAL: Negative Musculoskeletal Disorders ENDOCRINE: Positive Endocrine Disorders, Diabetes Mellitus Type 2 and Hypothyroidism; Negative Diabetes Mellitus Type 1 HEMATOLOGIC: Negative Blood Disorders OTHER HISTORY: Negative Autoimmune Disease, Blood Transfusions, Blood Transfusion Reaction, Anesthesia Reactions, Organ Transplant, Chemotherapy, Radiation Therapy, Hyperbaric Therapy, MRSA, VRSA, Vancomycin-Resistant Enterococci, Human Immunodeficiency Virus (HIV), Chicken Pox, Measles, Mumps, Rubella ([place] Measles), Pertussis, Clostridium Difficile or Cancer Family History FAMILY HISTORY: Negative Family Psychiatric Problems, Family Respiratory Disorders, Family Cardiac Disorders, Family Gastrointestinal Problems, Family Cancer, Family Surgery or Family Anesthesia Reaction Surgical History SURGICAL: Positive Section; Negative Endocrine Surgery, Ear Surgery, Abdominal Surgery, Nephrectomy, Neurologic Surgery, Brain Shunt, Mastectomy or Organ Transplant Social History SMOKING STATUS: Unknown if ever smoked SECOND HAND EXPOSURE: Yes ED Exam Narrative Physical exam: GENERAL APPEARANCE: alert and oriented x 4, well-developed, well-nourished, no acute distress VITALS: All vitals were reviewed and the pulse ox is % on room air, which is normal according to my interpretation. HEENT: Normocephalic, atraumatic; pupils equal, round, reactive to light; EOMI; mucous membranes pink, moist; oropharynx clear NECK: Supple LUNGS: CTABL; no wheezes, no rales, no rhonchi HEART: Regular rate, regular rhythm; normal S1, S2; no murmurs ABDOMEN: non distended; normal BS; soft, no tenderness, no guarding, no rebound; no masses, no organomegaly, no hernia BACK: no CVA tenderness EXTREMITIES: atraumatic; no edema NEUROLOGIC: awake; alert and oriented x4; cranial nerves II-XII grossly intact; no focal sensory or motor deficits PSYCHIATRIC: appropriate mood and affect SKIN: warm, dry, normal color; no rashes General Limitations: Present altered mental status Course Course Course Narrative: 0005 Patient to be placed on bipap CXR is ordered for determining etiology of chest pain. Quality Measures none Orders Category Date Time Status Patient Condition Routine Admission 11/09/24 23:57 Ordered Bedside Blood Glucose NOW Care 11/09/24 21:44 Active Shift Mechanic NOW Care 11/09/24 21:44 Active Continuous Pulse Oximetry NOW Care 11/09/24 21:44 Completed EKG (ED ONLY) *Do not use* NOW Care 11/09/24 21:44 Completed Irvin [Urinary Catheter] QS Care 11/09/24 22:30 Completed Head of Bed Elevation NOW Care 11/09/24 23:59 Active Insert IV NOW Care 11/09/24 21:44 Active Intake and Output QSHIFT Care 11/09/24 23:57 Ordered Miscellaneous Nursing Order NOW Care 11/09/24 23:57 Active NIH Stroke Scale now Care 11/09/24 21:44 Active NPO NOW Care 11/09/24 21:44 Active Notify provider NEEDED Care 11/09/24 23:57 Active Nurse Swallow Screen x1 Care 11/09/24 21:44 Active Obtain weight NOW Care 11/09/24 23:57 Active Sequential Compression Device QSHIFT Care 11/09/24 23:57 Active Consult to Neurology / Tele-Neurology Routine Cons 11/09/24 21:44 Active Referral Physical Therapy Stat Cons 11/09/24 23:57 Active CA echo doppler complete Routine Exams 11/10/24 00:[address] angio stroke protocol Stat Exams 11/09/24 21:[address] stroke protocol Stat Exams 11/09/24 21:44 Completed EKG (ED Only) Stat Exams 11/09/24 21:44 Draft MR stroke protocol Urgent Exams 11/09/24 Stop Req XR chest 1V portable Stat Exams 11/09/24 23:27 Completed Arterial Blood Gas Stat Lab 11/09/24 22:42 Completed B-Type Natriuretic Peptide Stat Lab 11/09/24 21:50 Completed Basic Metabolic Panel AM DRAW Lab 11/10/24 05:00 Ordered Basic Metabolic Panel AM DRAW Lab 11/11/24 05:00 Ordered Basic Metabolic Panel AM DRAW Lab 11/12/24 05:00 Ordered CBC AM DRAW Lab 11/10/24 05:00 Ordered CBC AM DRAW Lab 11/11/24 05:00 Ordered CBC AM DRAW Lab 11/12/24 05:00 Ordered CBC Stat Lab 11/09/24 21:50 Completed Comprehensive Metabolic Panel Stat Lab 11/09/24 21:50 Completed Drug Screen,Urine Stat Lab 11/09/24 22:30 Completed Free T4 (Free Thyroxine) AM DRAW Lab 11/10/24 05:00 Ordered Lipid Panel AM DRAW Lab 11/10/24 05:00 Ordered Liver Panel AM DRAW Lab 11/10/24 05:00 Ordered MRSA Nasal Screen Stat Lab 11/09/24 23:57 Ordered Magnesium AM DRAW Lab 11/10/24 05:00 Ordered Magnesium Stat Lab 11/09/24 21:50 Completed Partial Thromboplastin Time Stat Lab 11/09/24 21:50 Completed Phosphorous AM DRAW Lab 11/10/24 05:00 Ordered Procalcitonin Stat Lab 11/09/24 21:50 Completed Prothrombin Time with INR Stat Lab 11/09/24 21:50 Completed Thyroid Stimulating Hormone AM DRAW Lab 11/10/24 05:00 Ordered Troponin I Stat Lab 11/09/24 21:50 Completed Urinalysis Routine Lab 11/09/24 23:57 Ordered Urinalysis Stat Lab 11/09/24 22:30 Completed Urine Culture Stat Lab 11/09/24 22:30 Received Venous Blood Gas AM DRAW Lab 11/10/24 05:00 Ordered Atorvastatin Calcium [Lipitor] Med 11/10/24 21:00 Active 40 mg PO HS Labetalol IV [Trandate IV] Med 11/10/24 00:09 Active 10 mg IVP Q6HR PRN Ondansetron Inj [Zofran Inj] Med 11/09/24 21:44 Active 4 mg IV Q4HR PRN Senna [Senokot] Med 11/09/24 23:57 Active 2 tab PO BID PRN cefTRIAXone [Rocephin] 1,000 mg Med 11/10/24 00:02 Pending SODIUM CHLORIDE 0.9% (Popper) [NS 0.9% (Popper)] 50 ml IV QDAY Code Status Routine Oth 11/09/24 23:57 Ordered BiPAP / CPAP NEEDED RT 11/10/24 00:05 Active Oxygen Delivery DAILY RT 11/09/24 23:57 Active Oxygen Delivery NOW RT 11/09/24 21:44 Active Vital Signs Vital signs: Vital Signs Oxygen Flow Rate 2 11/09/24 22:09 Fall [facility] Narrative MDM Narrative:: Scribe Attestation: Sherif Chatterjee am scribing for and in the presence of Dr. Ray. Provider Notation: Although this document has been carefully reviewed, there may still be some phonetic and other typographical errors. These errors are purely grammatical due to imperfections in the software program and should not be construed in any way to compromise the substance of the patient's medical care during this visit. Patient data External records reviewed:: [facility] previous records and EMS form Clinical information provided by:: EMS Social determinants that could affect healthcare access:: none Patient has the following chronic illnesses:: see PMH How is presenting disease/condition affected by chronic disease/condition?: uneffected by Evaluation data The following diagnostics were reviewed and interpreted by me:: lab results, radiology exam(s) and EKG tracing(s) Lab and/or radiology exams considered but not ordered:: na Interpretation Summary: Examination: CT brain head without contrast. Date and time of exam: November 09, 2024 2147 hrs. Indications: Stroke alert, patient found down unconscious followed by altered mental status today Findings: No significant ventricular enlargement. Intra-axial or extra-axial hemorrhage density is not seen. No mass effect or midline shift Basal cisterns are not remarkable. Fourth ventricle is midline. Cranial vault intact. Impression: Negative for acute hemorrhage, mass effect or midline shift Dictated By: Eulogio Cote MD Examination: AP chest single view Technique one AP upright portable chest single view Exam date and time: November 09, 2024 11:39 PM Comparison September 13, 2024 Indications: Onset chest pain today Findings: Extensive bilateral parenchymal disease Normal heart size Biapical pleural thickening Ectatic calcified thoracic aorta impression: Again noted extensive bilateral parenchymal disease Please see the CT chest report September 17, 2023 Dictated By: Eulogio Cote MD Medications / Prescriptions Medications or Prescriptions considered but not ordered:: na Medication administrations:: Medication Administration History Atorvastatin Calcium (Atorvastatin Calcium 20 Mg Tablet) 40 mg PO HS SANDRA Stop: 12/10/24 20:59 Ceftriaxone Sodium 1,000 mg/ (Sodium Chloride) 50 mls @ 100 mls/hr IV QDAY SANDRA Stop: 11/17/24 00:01 Labetalol HCl (Labetalol Inj 5 Mg/Ml Vial 20 Ml) 10 mg IVP Q6HR PRN PRN Reason: SBP > 200 Stop: 12/10/24 05:59 Ondansetron HCl (Ondansetron Inj 2 Mg/Ml Inj 2 Ml) 4 mg IV Q4HR PRN PRN Reason: NAUSEA OR VOMITING Stop: 12/09/24 21:43 Sennosides (Senna Tablet) 2 tab PO BID PRN; Protocol PRN Reason: CONSTIPATION Stop: 12/09/24 23:56 Discontinued Medications Ceftriaxone Sodium 1,000 mg/ (Sodium Chloride) 50 mls @ 100 mls/hr IV X1 ONE Stop: 11/10/24 00:59 Last Admin: 11/10/24 00:46 Dose: 100 mls/hr Documented By: CVL as above Consultations Consultation(s) initiated? (list below): Yes Consultation #1 (Physician, Specialty, Details): Hospitalist made aware of the patient?s HPI, PMHx, lab and/or radiology results. Treatment plan was discussed. Accepts patient for admission. Diagnosis Fall Differential Diagnosis: syncope, concussion with loss of consciousness and concussion without loss of consciousness Most likely diagnosis given after review of the tests above:: see below Admission Indicated Admission indicated?: not indicated Admission Request Was there a request for admission?: No Disposition Plan Disposition Plan: Discharge Discharge Attestation Discharge Attestation: The patient and all family members were given an opportunity to ask questions and understood the discharge instructions. Discharge instructions specifically effects, indications for sooner follow up or return to the emergency department, and the expected course of current diagnosis. Patient condition: Stable Discharge Plan Plan Patient Disposition: Admit Acute Care w/in Hospital Patient condition on transfer: Stable Problem List Clinical Impression: Acute hypercapnic respiratory failure, Fall
[2024-11-09 23:53] VITALS: BP 157/76; PULSE 108; RESP 20; TEMP 36.1; O2SAT 95
--- NOTE | 2024-11-09 23:57 | ESHP_ITS ---
Documentation for date of: 11/09/24 [facility] History of Present Illness History of present illness: Patient is a 79-year-old female with a past medical history of chronic bronchiectasis with scarring, hypothyroidism, hypertension, dementia and depression, of note patient was recently started on mirtazapine and donezepil upon discharge to nursing facility. Daughter is present at the bedside who contributed to the H&P, reported that patient was at her baseline mental status, when visited by family member this morning, but later received a call from [facility] that she was found facedown on the floor, unwitnessed fall, unknown downtime. The daughter denied history of fever, cough, or seizures. Reported the patient is able to ambulate without support around the room and to the restroom on her own, but requires wheelchair assistance for longer ambulation. At the time of arrival in the ER, patient was saturating 85% on room air, and found to be Confused, stroke alert was initiated and teleneuro consult was obtained, who recommended against thrombolysis as there is evidence of head trauma, also clinical presentation more consistent with encephalopathy per teleneurology. ABG showed respiratory acidosis, hypercapnia, chest x-ray shows findings consistent with chronic bronchiectasis and scarring, initial vitals at time of arrival, systolic blood pressure 220, repeat blood pressure at the time of evaluation in the 170s. Heart rate in the 90s. Afebrile. CBC showed leukocytosis. Patient was started on BiPAP, and will be admitted to telemetry. Review of Systems Review of Systems ROS Unobtainable: unobtainable due to mental status Past Medical History Past Medical History NEUROLOGIC: Positive Neurological Disorders and Dementia CARDIAC: Positive Cardiac Disorders, Hypercholesterolemia and Hypertension; Negative Congestive Heart Failure RESPIRATORY: Positive Chronic Obstructive Pulmonary Disease (COPD), Asthma and Pulmonary Fibrosis GASTROINTESTINAL: Negative Gastrointestinal Disorders or Hepatitis GENITOURINARY: Positive Genitourinary Disorders; Negative Renal Disease MUSCULOSKELETAL: Negative Musculoskeletal Disorders ENDOCRINE: Positive Endocrine Disorders, Diabetes Mellitus Type 2 and Hypothyroidism; Negative Diabetes Mellitus Type 1 HEMATOLOGIC: Negative Blood Disorders OTHER HISTORY: Negative Autoimmune Disease, Blood Transfusions, Blood Transfusion Reaction, Anesthesia Reactions, Organ Transplant, Chemotherapy, Radiation Therapy, Hyperbaric Therapy, MRSA, VRSA, Vancomycin-Resistant Enterococci, Human Immunodeficiency Virus (HIV), Chicken Pox, Measles, Mumps, Rubella (Syriac Measles), Pertussis, Clostridium Difficile or Cancer Family History FAMILY HISTORY: Negative Family Psychiatric Problems, Family Respiratory Disorders, Family Cardiac Disorders, Family Gastrointestinal Problems, Family Cancer, Family Surgery or Family Anesthesia Reaction Surgical History SURGICAL: Positive Section; Negative Endocrine Surgery, Ear Surgery, Abdominal Surgery, Nephrectomy, Neurologic Surgery, Brain Shunt, Mastectomy or Organ Transplant Social History SMOKING STATUS: Unknown if ever smoked SECOND HAND EXPOSURE: Yes Exam Vital Signs Temp Pulse Resp BP Pulse Ox O2 Del Method O2 Flow Rate 97 F 108 H 20 157/76 H 95 BiPAP 2 11/09/24 23:53 11/09/24 23:53 11/09/24 23:53 11/09/24 23:53 11/09/24 23:53 11/09/24 23:53 11/09/24 23:01 FiO2 30 11/09/24 23:53 Narrative Exam Constitutional: In mild distress, tachypneic, unable to respond verbally, but able to follow simple commands to raise her arms and legs, HEENT: Noted hematoma right forehead, dried blood on the nares. Respiratory: Mild rhonchi bilaterally. Cardiac: RRR. Abdomen: Soft, non-distended, non-tender. MSK: No B/L LE edema. Skin: Warm, dry, intact. No obvious lesions. Neuro: Generalized weakness but no focal neurological deficits on evaluation of limbs, incomplete exam due to mental status, able to lift her extremities in response to commands, but unable to communicate verbally. Psychiatric: Unable to assess due to mental status Results: Labs 11/09/24 21:50 11/09/24 21:50 Labs: Short CBC 11/09/24 Range/Units 21:50 WBC 11.1 H (3.6-11.0) Thou/mm3 Hgb 13.7 (12.0-16.0) g/dL Hct 41.4 (36.0-46.0) % Plt Count 185 (140-440) Thou/mm3 BMP 11/09/24 21:50 Sodium 136 Potassium 4.1 Chloride 98 Carbon Dioxide 31.9 H BUN 18 Creatinine 0.6 Glucose 187 H Calcium 10.1 Cardiac Enzymes 11/09/24 Range/Units 21:50 Troponin I < 0.020 (0.0-0.045) ng/mL Liver Function 11/09/24 Range/Units 21:50 Total Bilirubin 0.3 (0.3-1.2) mg/dL AST 37 H (0-34) U/L ALT 25 (10-49) U/L Alkaline Phosphatase 87 (46-116) U/L Albumin 4.2 (3.4-4.8) gm/dL Urine 11/09/24 Range/Units 22:30 Urine Color Yellow (Lt Yel-Yel) Urine Clarity Clear (Clear/Hazy) Urine pH 6.5 (5.0-7.0) Ur Specific [place] 1.015 (1.001-1.035) Urine Protein 1+ A (Neg - Trace) Urine Glucose (UA) Trace (Negative) ABG Interpretation ABG results: 11/09/24 22:42 ABG pH 7.18 L* ABG pCO2 93 H* ABG pO2 159 H ABG HCO3 35 H ABG O2 Saturation 99 H ABG Base Excess 3 Quality Measures Quality Measures none Advance care planning discussed with:: child Medications Home Medications and Allergies Home Medications ?Medication ?Instructions ?Recorded ?Confirmed ?Type pantoprazole 40 mg tablet,delayed 40 mg PO DAILY 06/1011/10/24 History release donepezil 10 mg tablet (Aricept) 10 mg PO ONCE HS 08/1911/10/24 History mirtazapine 15 mg tablet 15 mg PO HS 09/14/24 5 History levothyroxine 25 mcg tablet 25 mcg PO DAILY 11/10/24 0 11/10/24 History Allergies Allergy/AdvReac Type Severity Reaction Status Date / Time acetaminophen Allergy Severe DIZZY Verified 09/13/24 16:23 hydrocodone Allergy Severe DIZZY Verified 09/13/24 16:23 codeine Allergy Mild MAKES ME Verified 09/13/24 16:23 SICK Visit Medications Ondansetron HCl (Ondansetron Inj 2 Mg/Ml Inj 2 Ml) 4 mg IV Q4HR PRN PRN Reason: NAUSEA OR VOMITING Stop: 12/09/24 21:43 Assessment & Plan Plan Patient is a 79-year-old female with a past medical history of chronic bronchiectasis with scarring, hypothyroidism, hypertension, dementia and depression, of note patient was recently started on mirtazapine and donezepil upon discharge to nursing facility. Daughter is present at the bedside who contributed to the H&P, reported that patient was at her baseline mental status, when visited by family member this morning, but later received a call from [facility] that she was found facedown on the floor, unwitnessed fall, unknown downtime. The daughter denied history of fever, cough, or seizures. Reported the patient is able to ambulate without support around the room and to the restroom on her own, but requires wheelchair assistance for longer ambulation. At the time of arrival in the ER, patient was saturating 85% on room air, and found to be Confused, stroke alert was initiated and teleneuro consult was obtained, who recommended against thrombolysis as there is evidence of head trauma, also clinical presentation more consistent with encephalopathy per teleneurology. ABG showed respiratory acidosis, hypercapnia, chest x-ray shows findings consistent with chronic bronchiectasis and scarring, initial vitals at time of arrival, systolic blood pressure 220, repeat blood pressure at the time of evaluation in the 170s. Heart rate in the 90s. Afebrile. CBC showed leukocytosis. EKG shows sinus tachycardia. Patient was started on BiPAP, and will be admitted to telemetry. #Fall #Stroke rule out #Acute encephalopathy ? Unwitnessed fall, per patient's daughter at baseline patient is able to ambulate short distances around the room and to the restroom without aids, but requires wheelchair for ambulation around the facility. stroke alert was initiated and teleneuro consult was obtained, head CT negative for findings of acute hemorrhage, mass effect or midline shift, teleneuro recommended against thrombolysis as there is evidence of head trauma, also clinical presentation more consistent with encephalopathy per teleneurology. MRI was considered, but not ordered as acute encephalopathy likely secondary to hypercapnia. Noted improvement in patient's mental status, but continues to be verbally impaired. ? Consider neurology consult and MRI stroke protocol if no improvement in aphasia or worsening neurological deficits. High intensity statin was initiated but asprin was not recommended by tele neuro. ? Withholding donepezil and mirtazapine for now, as donepezil is less likely to be beneficial and established dementia and mirtazapine might be contributing to drowsiness, consider restarting medications at lower dose once mental status improves. ? Orthostatic vitals ordered. #Acute hypoxic respiratory failure #Acute hypercapnic respiratory failure #Respiratory acidosis ? Patient has a prior history of bronchiectasis, history of smoking, chest x-ray showed findings consistent with Extensive bilateral parenchymal disease and biapical pleural thickening. Prior workup for cocci was negative, multiple previous admissions for pneumonia. Noted mild leukocytosis, the negative history of fever. ABG findings consistent with respiratory acidosis secondary to hypercapnia. ? IV ceftriaxone 1 g daily. ? Continue BiPAP for now, as tolerated. Repeat VBG in the a.m. ? DuoNebs as needed. #History of dementia #History of depression ? Withholding donepezil and mirtazapine for now, as donepezil is less likely to be beneficial and established dementia and mirtazapine might be contributing to drowsiness, consider restarting medications at lower dose once mental status improves. #History of hypothyroidism ? Continue levothyroxine 25 mcg qday #Hx of GERD - Continue protonix Disposition: Telemetry DVT prophylaxis: SCD GI prophylaxis: None Diet: Pending swallow eval Lines: PIV CODE STATUS: DNR The plan of care was discussed with my attending physician MD Justine Pineda MD PGY2 This document was completed utilizing speech recognition software. Grammatical errors, random word insertions, pronoun errors, and incomplete sentences are an occasional consequence of this system due to software limitations, ambient noise, and hardware issues. Any formal questions or concerns about the content, text or information contained within the body of this dictation should be directly addressed to the provider for clarification. Attending Provider Attestation/Addendum Pt was evaluated and plan formulated together with the housestaff team. I have reviewed the residents note above and agree with most of its content. Please refer to the residents note for additional details.
[2024-11-10] VITALS (19 sets, daily range): BP systolic 86–148; BP diastolic 49–89; PULSE 75–116; RESP 16–98; TEMP 36.1–37.2; O2SAT 94–100; BMI 19.5
[2024-11-10 00:16] LABS: Procalcitonin 0.07 ng/ml (0.0-0.49)
[2024-11-10 00:27] LABS: Amphetamine/Methamp Scrn,U Negative (Negative); Barbiturate Screen,Urine Negative (Negative); Benzodiazepines Screen,Urine Negative (Negative); Benzoylecgonine Screen, Ur Negative (Negative); Fentanyl Screen,Urine Negative (Negative); Opiate Screen,Urine Negative (Negative); THC Screen,Urine Negative (Negative)
[2024-11-10] MEDS: cefTRIAXone 1,000 MG in SODIUM CHLORIDE 0.9% (Popper) 50 ML 100 MG IV ×2 (00:46→20:18)
--- NOTE | 2024-11-10 02:05 | PC.NURSE ---
DR. SALAS INFORMED OF PT LOW BP, NEW ORDER GIVEN AND CARRIED OUT.
[2024-11-10] MEDS: SODIUM CHLORIDE 0.9% 1000 ML 1,000 ML 999 ML IV (02:13)
--- NOTE | 2024-11-10 02:30 | XR_ITS ---
Examination: Shoulder,right, 3 views Technique: Shoulder AP internal rotation, AP external rotation, Y view shoulder, 3 views Exam date and time :November 10, 2024 0314 hrs. Indications: Patient fell today with injury to the shoulder, shoulder pain Findings: The films are underpenetrated Significant right parenchymal disease Advanced osteoarthritis glenohumeral joint Calcific tendinitis Prominent osteoarthritis acromioclavicular joint Impression: No acute fracture Recommend PA lateral chest follow-up to assess extensive parenchymal disease in the right lung
--- NOTE | 2024-11-10 02:31 | XR_ITS ---
Examination: CT cervical spine without contrast 2-D sagittal reconstructions 2-D coronal reconstructions 3-D reconstructions. Exam date and time:November 10, 2024 at 0253 hrs. Indications: Patient fell today with injury to the neck, neck pain CTDI:vol (mGy) 12.3 DLP: (mGycm) 253 Technique: Multiple 2 mm axial sections of the cervical spine have been obtained. The coronal and sagittal reconstructions have been obtained. 3-D reconstructions have been obtained. Low dose protocols were performed. One or more of the following dose reduction techniques were used; automated exposure control, adjustment of the mA and/or KV according to patient size, use of iterative reconstruction technique. Findings: Axial sections demonstrate intact base of the skull. C1 exhibit satisfactory relationship to the odontoid. No acute cervical vertebral body fracture seen. Alignment posterior spinous processes satisfactory. Significant degenerative disc disease C4-C5, C5-C6 and C6-C7, C7-T1 Impression: No acute cervical fracture.
--- NOTE | 2024-11-10 02:31 | XR_ITS ---
Examination: CT of orbits without intravenous contrast. 2-D sagittal reconstructions. 3-D reconstructions. Date and time of exam:November 10, 2024 0253 hrs. Indications: Neck and I pain onset today CTDI: vol (mGy):14.2 DLP: (mGycm):151 Technique: Multiple axial images of orbital region, 3.0 mm slice thickness. 2-D sagittal and coronal reconstructions. 3-D reconstructions. Low dose protocols were performed. One or more of the following dose reduction techniques were used; automated exposure control, adjustment of the mA and/or KV according to patient size, use of iterative reconstruction technique. Findings: The optic globes exhibit symmetry There is soft tissue swelling anterior and medial to the right optic globe anterior to the right frontal bone and right nasal bone No retro-orbital hematoma or soft tissue mass The optic nerves exhibit symmetry No cortical bone destruction Mild chronic ethmoid sinusitis Fluid in the right maxillary antrum Bone and orbital rims appear intact No depression zygomatic arches Old right nasal bone deformity Nasal septum intact Impression: Soft tissue swelling anterior and medial to the right optic globe anterior to the right frontal bone and right nasal bone No definite soft tissue abscess on this noncontrast study If abscess is a clinical consideration, consider MRI of orbits without contrast follow-up No orbital fracture Mild chronic ethmoid sinusitis Acute right maxillary sinusitis.
[2024-11-10 03:02] LABS: Base Excess 2 (-3-3); HCO3 32 mEq/L (20-26); Inspired Oxygen, FIO2 30 %; O2 Saturation 98 % (91-98); PCO2 82 mmHg (32.0-48.0); PO2 110 mmHg (83-108)
[2024-11-10 03:06] LABS: Allen Test Performed/OK; Puncture Site Right Radial
--- NOTE | 2024-11-10 03:08 | XR_ITS ---
Examination: Knee bilateral, 6 views Technique: Knee AP, lateral, oblique each knee total 6 views Date and time of exam: November 10, 2024 at 1520 hrs. Indications: Patient fell today with injury to both knees, bilateral knee pain. Findings: Severe osteopenia Bilateral advanced tricompartment osteoarthritis No fracture involving either knee Large left knee effusion Impression: No acute fracture Large left knee effusion Small right knee effusion Recommend short-term follow-up knee films as clinically warranted, given the patient's severe osteopenia
[2024-11-10] MEDS: SODIUM CHLORIDE 0.9% 1000 ML 1,000 ML 75 ML IV (03:38)
--- NOTE | 2024-11-10 03:59 | PRELIM_ITS ---
ORIGINAL REPORT CT scan of the cervical spine without intravenous contrast (axial sections with sagittal and coronal reformats). November 10, 2024 0253 hours Clinical History: FELL Comparison: None Findings: There is no fracture, traumatic subluxation or other acute osseous abnormality of the cervical spine. There is straightening of the cervical spine curvature with loss of normal cervical lordosis. There are multilevel degenerative disc changes and spondylosis of the cervical spine with multilevel foraminal stenosis. There is no prevertebral soft tissue swelling. There are vascular calcifications within the neck bilaterally. There is a patulous appearing esophagus with some fluid within the esophagus. There is pleural-parenchymal scarring in the upper lungs. Impression: 1. No acute osseous abnormality of the cervical spine. Straightening of the cervical spine may indicate muscle spasm. Degenerative change. 2. Patulous esophagus with some fluid within the esophagus. Report Electronically Signed By: Ervin Wells 11/10/2024 3:59:05 AM [EST] ADDENDUM REPORT Addendum: There are acute fractures of the spinous processes of C4 and C5. If there is any clinical concern for cord contusion this may be evaluated with MRI cervical spine. Report Electronically Signed By: Ervin Wells 11/10/2024 5:25:16 AM [EST]
--- NOTE | 2024-11-10 04:23 | PRELIM_ITS ---
CT scan of the orbits without intravenous contrast (axial sections with sagittal and coronal reformats) November 10, 2024 0253 hours Clinical History: FELL Comparison: None Findings: There is no fracture, dislocation or other acute osseous abnormality of the orbits. There is evidence of prior bilateral orbital lens surgery. There is no retro-orbital hemorrhage. The superior ophthalmic veins, extraocular muscles and lacrimal gland regions are unremarkable. There is superficial soft tissue contusion along the right forehead and preseptal right periorbital region. There is trace amount of dependent right maxillary sinus fluid otherwise paranasal sinuses and tympanomastoid cavities are clear. There is degenerative change at the temporomandibular joints. Impression: No acute osseous abnormality of the orbits. Report Electronically Signed By: Ervin Wells 11/10/2024 4:23:06 AM [EST]
[2024-11-10 05:48] LABS: Base Excess, Venous 2 (-3-3); O2 Saturation, Venous 54 % (96-97); PCO2, Venous 81 mmHg (36-56); PO2, Venous 32 mmHg (15-58); pH, Venous 7.21 (7.33-7.66)
[2024-11-10 05:54] LABS: Basophils # (Auto) 0.1 Thou/mm3 (0.0-0.2); Basophils % (Auto) 0 % (0-2.5); Eosinophils % (Auto) 0 % (0-10); Hemoglobin 12.8 g/dL (12.0-16.0); Immature Granulocytes % (Auto) 0 % (0-0); Immature Granulocytes Auto 0.07 Thou/mm3 (0.00-0.00); Lymphocytes # (Auto) 0.5 Thou/mm3 (1.0-4.8); Lymphocytes % (Auto) 3 % (10-50); Mean Corpuscular HGB Conc 32.8 g/dl (31.0-37.0); Mean Corpuscular Hemoglobin 31.9 pg (25.0-35.0); Mean Corpuscular Volume 97 fL (80-100); Monocytes # (Auto) 0.9 Thou/mm3 (0.0-0.8); Monocytes % (Auto) 5 % (0-12); Neutrophils # (Auto) 17.8 Thou/mm3 (1.8-7.7); Neutrophils % (Auto) 92 % (37-80); Nucleated Red Blood Cell % 0 /100 WBC (0); Platelet Count 134 Thou/mm3 (140-440); RDW Standard Deviation 47.5 fL (36.4-46.3); Red Blood Count 4.01 Miln/mm3 (4.00-5.20); White Blood Count 19.3 Thou/mm3 (3.6-11.0)
[2024-11-10 06:56] LABS: Alanine Aminotransferase 31 U/L (10-49); Albumin, Serum 3.7 gm/dL (3.4-4.8); Alkaline Phosphatase 74 U/L (46-116); Anion Gap 6 (7-16); Aspartate Amino Transferase 50 U/L (0-34); BUN/Creatinine Ratio 34 Ratio (12-20); Bilirubin,Direct < 0.1 mg/dL (0.0-0.3); Bilirubin,Total 0.2 mg/dL (0.3-1.2); Blood Urea Nitrogen 17 mg/dL (9-23); Carbon Dioxide 30.8 mMol/L (20.0-31.0); Cardiac Risk Estimate 2.4 RATIO (3.7-5.6); Chloride 101 mMol/L (98-107); Cholesterol 217 mg/dL (132-200); Creatinine (Component) 0.5 mg/dL (0.6-1.3); Free T4 (Free Thyroxine) 1.16 ng/dL (0.89-1.76); Glucose 129 mg/dL (74-106); HDL Cholesterol 92 mg/dL (40-60); LDL Cholesterol,Calculated 113 mg/dL (0-130); Magnesium 1.7 mg/dL (1.6-2.6); Osmolality,Calculated 279 (275-295); Phosphorous 3.9 mg/dL (2.4-5.1); Potassium 4.4 mMol/L (3.4-5.1); Sodium 138 mMol/L (136-145); Thyroid Stimulating Hormone 0.34 uIU/mL (0.55-4.78); Total Protein 6.4 gm/dL (5.7-8.2); Triglycerides 62 mg/dL (30-150); eGFR > 60 See Note
[2024-11-10] MEDS: AZITHROMYCIN INJ 500 MG in SODIUM CHLORIDE 0.9% 250 ML 250 ML 250 MG IV (07:52)
[2024-11-10] MEDS: PANTOPRAZOLE INJ 40 MG VIAL IV (08:15)
[2024-11-10] MEDS: LEVOTHYROXINE SODIUM 25 MCG TABLET PO (09:58)
--- NOTE | 2024-11-10 10:20 | ESPR_ITS ---
Documentation for date of: 11/10/24 Subjective Subjective Interval history: HPI is limited as patient is poor historian and is altered Patient examined at bedside today. No acute overnight events. Patient is lying down with cervical collar. Patient's family with at bedside, who had reiterated they do not want aggressive measures for patient. They are asking how the patient is doing. They do state that the patient uses inhalers at home. They also state that she lives [facility] a [facility], is wheelchair-bound, however is able to communicate as well. No other complaints this time Exam Vital Signs Temp Pulse Resp BP Pulse Ox O2 Del Method O2 Flow Rate 98.4 F 89 26 H 148/53 H 100 BiPAP 2 11/10/24 08:00 11/10/24 08:00 11/10/24 08:00 11/10/24 08:00 11/10/24 08:00 11/10/24 08:00 11/10/24 07:51 FiO2 30 11/10/24 04:16 Narrative Exam General: AAOx1, appears to be altered, in cervical collar HEENT: Limited, poor dentition, in cervical collar. Purpura patch surrounding right orbital area Cardiovascular: S1, S2, radial pulses +2 bilat, RRR Pulmonary: CTAB bilat no cough, no wheezing GI: No tenderness to light or deep palpitation, no guarding, rigidity, rebound tenderness or distension Extremities: No presence of trace or pitting edema in lower extremities bilaterally, dorsalis pedis pulses +2 bilaterally Neuro: AAOx1, no focal motor or sensory deficits in the UE or LE bilat Psych: Unable to cooperate fully Objective Labs 11/11/24 04:51 11/11/24 04:51 Labs: Laboratory Results - last 24 hr 11/09/24 11/09/24 11/09/24 21:50 22:30 22:42 WBC 11.1 H RBC 4.33 Hgb 13.7 Hct 41.4 MCV 96 MCH 31.6 MCHC 33.1 RDW Std Deviation 47.4 H Plt Count 185 Neut % (Auto) 67 Lymph % (Auto) 25 Irwin % (Auto) 6 Eos % (Auto) 1 Baso % (Auto) 1 Neut # (Auto) 7.4 Lymph # (Auto) 2.8 Irwin # (Auto) 0.7 Eos # (Auto) 0.1 Baso # (Auto) 0.1 Immature Gran # (Auto) 0.08 H Absolute Nucleated RBC 0.00 Immature Gran % 1 H Nucleated RBC % 0 PT 10.9 INR 1.0 APTT 30.2 Puncture Site Right Radial ABG pH 7.18 L* ABG pCO2 93 H* ABG pO2 159 H ABG HCO3 35 H ABG O2 Saturation 99 H ABG Base Excess 3 VBG pH VBG pCO2 VBG pO2 VBG O2 Sat (Cathie) VBG Base Excess FiO2 28 Sodium 136 Potassium 4.1 Chloride 98 Carbon Dioxide 31.9 H Anion Gap 6 L BUN 18 Creatinine 0.6 Estim Creat Clear Calc Not Performed. eGFR > 60 BUN/Creatinine Ratio 30 H Glucose 187 H Calculated Osmolality 278 Calcium 10.1 Corrected Calcium 10.1 Phosphorus Magnesium 2.0 Total Bilirubin 0.3 Direct Bilirubin AST 37 H ALT 25 Alkaline Phosphatase 87 Troponin I < 0.020 B-Natriuretic Peptide 43 Total Protein 7.4 Albumin 4.2 Globulin 3.2 Albumin/Globulin Ratio 1.3 Triglycerides Cholesterol LDL Cholesterol, Calc HDL Cholesterol Cholesterol/HDL Ratio Procalcitonin 0.07 TSH Free T4 Ur Collection Type Catheter Urine Color Yellow Urine Clarity Clear Urine pH 6.5 Ur Specific [place] 1.015 Urine Protein 1+ A Urine Glucose (UA) Trace Urine Ketones Negative Urine Blood Negative Urine Nitrite Negative Urine Bilirubin Negative Urine Urobilinogen (Auto) Negative Ur Leukocyte Esterase Negative Urine RBC 2 Urine WBC < 1 Ur Squamous Epith Cells 0 Urine Bacteria None Urine Opiates Screen Negative Urine Fentanyl Screen Negative Ur Barbiturates Screen Negative U Amphetamin/Meth Scrn Negative U Benzodiazepines Scrn Negative U Cocaine Metab Screen Negative U Marijuana (THC) Screen Negative 11/10/24 11/10/24 02:50 05:15 WBC 19.3 H D RBC 4.01 Hgb 12.8 Hct 39.0 MCV 97 MCH 31.9 MCHC 32.8 RDW Std Deviation 47.5 H Plt Count 134 L D Neut % (Auto) 92 H Lymph % (Auto) 3 L Irwin % (Auto) 5 Eos % (Auto) 0 Baso % (Auto) 0 Neut # (Auto) 17.8 H Lymph # (Auto) 0.5 L Irwin # (Auto) 0.9 H Eos # (Auto) 0.0 Baso # (Auto) 0.1 Immature Gran # (Auto) 0.07 H Absolute Nucleated RBC 0.00 Immature Gran % 0 Nucleated RBC % 0 PT INR APTT Puncture Site Right Radial ABG pH 7.20 L ABG pCO2 82 H* D ABG pO2 110 H D ABG HCO3 32 H ABG O2 Saturation 98 ABG Base Excess 2 VBG pH 7.21 L VBG pCO2 81 H VBG pO2 32 VBG O2 Sat (Cathie) 54 L VBG Base Excess 2 FiO2 30 Sodium 138 Potassium 4.4 Chloride 101 Carbon Dioxide 30.8 Anion Gap 6 L BUN 17 Creatinine 0.5 L Estim Creat Clear Calc Not Performed. eGFR > 60 BUN/Creatinine Ratio 34 H Glucose 129 H D Calculated Osmolality 279 Calcium 9.0 Corrected Calcium Phosphorus 3.9 Magnesium 1.7 Total Bilirubin 0.2 L Direct Bilirubin < 0.1 AST 50 H ALT 31 Alkaline Phosphatase 74 Troponin I B-Natriuretic Peptide Total Protein 6.4 Albumin 3.7 D Globulin Albumin/Globulin Ratio Triglycerides 62 Cholesterol 217 H LDL Cholesterol, Calc 113 HDL Cholesterol 92 H Cholesterol/HDL Ratio 2.4 L Procalcitonin TSH 0.34 L Free T4 1.16 Ur Collection Type Urine Color Urine Clarity Urine pH Ur Specific [place] Urine Protein Urine Glucose (UA) Urine Ketones Urine Blood Urine Nitrite Urine Bilirubin Urine Urobilinogen (Auto) Ur Leukocyte Esterase Urine RBC Urine WBC Ur Squamous Epith Cells Urine Bacteria Urine Opiates Screen Urine Fentanyl Screen Ur Barbiturates Screen U Amphetamin/Meth Scrn U Benzodiazepines Scrn U Cocaine Metab Screen U Marijuana (THC) Screen ABG Interpretation ABG results: 11/09/24 11/10/24 11/10/24 22:42 02:50 05:15 ABG pH 7.18 L* 7.20 L ABG pCO2 93 H* 82 H* D ABG pO2 159 H 110 H D ABG HCO3 35 H 32 H ABG O2 Saturation 99 H 98 ABG Base Excess 3 2 VBG pH 7.21 L VBG pCO2 81 H VBG pO2 32 VBG Base Excess 2 Quality Measures Quality Measures none Advance care planning discussed with:: patient Assessment & Plan Assessment Current Active Medications: Generic Name Dose Route Start Last Admin Trade Name Freq PRN Reason Stop Dose Admin Albuterol/Ipratropium 3 ml 11/10/24 13:00 Albuterol/Ipratropium (Duoneb) Rt Essence 3 Ml Nebu INH 12/10/24 12:59 Q6HRRT SANDRA Atorvastatin Calcium 40 mg 11/10/24 21:00 Atorvastatin Calcium 20 Mg Tablet PO 12/10/24 20:59 HS SANDRA Ceftriaxone Sodium 1,000 mg/ 50 mls @ 100 mls/hr 11/10/24 21:00 Sodium Chloride IV 11/17/24 20:59 HS SANDRA Azithromycin 500 mg/ Sodium 250 mls @ 250 mls/hr 11/11/24 09:00 Chloride IV 11/18/24 08:59 QDAY SANDRA Magnesium Sulfate 2 gm in 50 mls @ 25 mls/hr 11/10/24 10:15 Magnesium Sulfate Ivpb IV 11/10/24 12:14 X1 ONE Ketorolac Tromethamine 30 mg 11/10/24 10:17 Ketorolac Inj 30 Mg/Ml Vial IVP 11/15/24 10:16 Q6HR PRN Pain 4-10 Labetalol HCl 10 mg 11/10/24 00:09 Labetalol Inj 5 Mg/Ml Vial 20 Ml IVP 12/10/24 05:59 Q6HR PRN SBP > 200 Levothyroxine Sodium 25 mcg 11/10/24 09:00 11/10/24 09:58 Levothyroxine Sodium 25 Mcg Tablet PO 12/10/24 08:59 25 mcg ACBR SANDRA Administration Lidocaine 1 patch 11/10/24 10:17 Lidocaine 5% 1 Patch TOP 11/10/24 10:18 X1 ONE Nicotine 14 mg 11/10/24 10:30 Nicotine Patch 14 Mg/24 Hr Patch.Td24 TOP 12/10/24 10:29 QDAY SANDRA Ondansetron HCl 4 mg 11/09/24 21:44 Ondansetron Inj 2 Mg/Ml Inj 2 Ml IV 12/09/24 21:43 Q4HR PRN NAUSEA OR VOMITING Pantoprazole Sodium 40 mg 11/10/24 09:00 11/10/24 08:15 Pantoprazole Inj 40 Mg Vial IV 12/10/24 08:59 40 mg QDAY SANDRA Administration Sennosides 2 tab 11/09/24 23:57 Senna Tablet PO 12/09/24 23:56 BID PRN CONSTIPATION Protocol Plan Assessment Patient is a 79-year-old female with a past medical history of chronic bronchiectasis, hypothyroidism, hypertension, dementia and depression is admitted for acute encephalopathy and acute hypoxic hypercarbic respiratory failure status post unwitnessed fall. #Fall #Acute encephalopathy #Stroke rule out #? Cervical neck fracture #? Lumbar or thoracic spinal fracture Patient is currently altered, status post fall, that was unwitnessed Acute encephalopathy likely factorial including metabolic ABG showed pCO2 in the 90s, was on BiPAP CT head negative Will follow-up with further imaging and continued BiPAP Telemetry neuro gave patient of NIHSS score of 20 There was some concern for cervical neck fracture, will follow-up with radiology read Concern for additional fractures, will workup Plan: ? Neurology consulted, appreciate recs ? Follow-up echo ? Follow-up MRI ? Continue with BiPAP for encephalopathy ? Toradol 30 mg IV every 6 hours as needed ? Orthostatic vitals ? SCDs ? CT thoracic and lumbar spine ? Speech therapy ? Physical therapy #Acute hypoxic hypercarbic respiratory failure #Respiratory acidosis without adequate compensation #History of bronchiectasis #CAP #COPD exacerbation Most recent ABG showed pH of 7.13 pCO2 of 96 Patient will likely have to continue on BiPAP at this point, intubation is not an option Patient is retaining CO2, likely related to chronic lung disease Plan: ? IV ceftriaxone 1 g daily and azithromycin 250 mg ? Continue BiPAP ? DuoNebs as needed ? Inform MD any changes in regards to respiratory status ? Decadron 4 mg IV every 6 hours #History of dementia #History of depression Holding donezepil and mirtazapine due to encephalopathy at this point #History of hypothyroidism TSH 0.34 Free T4 1.16 Plan: ?Continue levothyroxine 25 mcg qday #Hx of GERD Plan: ? Continue with Protonix 40 mg IV #Health Maintenance Disposition: Telemetry DVT prophylaxis: SCD GI prophylaxis: Protonix 40 mg IV Diet: NPO, pending swallow eval CODE STATUS: DNR Patient seen and care discussed with my senior resident, Dr. Gonsalez, and my attending physician, Dr. Sierra Rausch, PGY-1 LPatient examined and case discussed with the team including attending physician. Note reviewed, I agree with the care plan as documented. Ms Cabrera is a 79 year old female who was admitted for possible syncope and GLMF. She has advanced dementia and was found face down at her residential. Patient was found to have AHRF in the ED and placed on BipAP for notable respiratory acidosis on ABG. There was questionable cervical spine fracture at level C4-C5. Patient remains in a cervical collar despite CT spine negative for any acute fractures. Family counseled at bedside, she is DNR/DNI. Patient also has some bilateral parenchymal disease, as she was a chronic smoker. Plan: Continue management of AHRF with BiPAP, follow up ABG. Loading dose Dexa 10mg IV x1 given. Started Dexa 4mg q6H for spinal protection and possible underlying COPD. Continue IV antibiotics, will re-evaluate tomorrow. CT thoracic and lumbar spine ordered for further work up. - Lane Gonsalez MD, PGY 2 Disclaimer: The document below may not be free of grammatical/phonetic/typographic errors due to use of voice recognition software. This does not dissuade from the commitment to providing health care with the patient's best interest in mind. L Attending Provider Attestation/Addendum I have examined the patient, reviewed labs and imaging findings, discussed the case with the resident(s), and reviewed entered orders. I agree with the plan of care as outlined in this note, with these additional summaries/recommendations: Patient and family seen at bedside. Patient remains encephalopathic but opens eyes to light sternal rub. Per family at bedside she was complaining of back pain earlier. Baseline mental status appears to be A & O x 1. Mental status most likely secondary to hypercapnia +/- infectious from pneumonia. We will continue to treat underlying causes and monitor for improvement. Patient did have ground-level fall on admission and thus far imaging negative for acute fracture. On admission tele radiology reported C4/C5 fracture although this was corrected with in-house radiology and no acute cervical fracture was mentioned. We will continue neck brace for now and discontinue once confirmed with radiology that no acute cervical fractures present. We will also obtain CT scans of thoracic and lumbar spine as patient cannot provide a history. We will give Toradol and lidocaine patch for now for pain management and attempt to avoid opioids in the setting of altered mental status but will give if pain becomes severe. Patient also found to have acute hypoxic and hypercapnic respiratory failure most likely secondary to COPD exacerbation. Family denies previous history of COPD although does use inhalers at SNF and endorses lifelong tobacco use. We will continue with scheduled breathing treatments, IV azithromycin, and start IV Decadron. Patient remains altered and morning VBG show patient is still hypercapnic. Stat repeat ABG obtained which shows worsening acidosis and increasing hypercapnia. We will place patient back on BiPAP and repeat ABG later this afternoon/evening. Patient is DNR/DNI. Stroke alert was also called on admission and CT head was negative for acute hemorrhage, mass effect or midline shift. We will obtain MRI brain. Consult in-house neurology. Stroke workup. Continue IV Rocephin and azithromycin for community-acquired pneumonia most likely secondary to gram-negative rods. Hold home meds as patient is currently NPO. Pending swallow evaluation and speech therapy referral. Overall prognosis remains guarded at this time. Dr. Sierra MD
[2024-11-10] MEDS: LIDOCAINE 5% 1 PATCH TOP (10:58)
[2024-11-10] MEDS: Magnesium Sulfate 2 GM Ivpb 2 GM/50 ML BAG IV (10:58)
--- NOTE | 2024-11-10 11:00 | CHAP ---
Patient was visited by the Spiritual Care Volunteer who prayed for them. (Volunteer was in the hospital from c 10:00-11:00)
[2024-11-10 11:05] LABS: Base Excess 0 (-3-3); HCO3 32 mEq/L (20-26); Inspired O2, VO2 Liters 2 L/min; O2 Saturation 100 % (91-98); PCO2 96 mmHg (32.0-48.0); PO2 162 mmHg (83-108)
[2024-11-10 11:06] LABS: Allen Test Not Performed; Puncture Site Right Radial
[2024-11-10 11:09] LABS: pH, Arterial 7.13 (7.35-7.45)
--- NOTE | 2024-11-10 12:51 | PCS.ST ---
Pt on continuous BIPAP. 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
--- NOTE | 2024-11-10 13:04 | XR_ITS ---
Examination: CT lumbar spine, without contrast. 2-D sagittal reconstructions. 2-D coronal reconstructions. 3-D reconstructions. Date and time of exam:November 10, 2024 1334 hrs. Indications: Patient fell yesterday with injury to the lower back lower back pain CTDI: vol (mGy):19.4 DLP: (mGycm):52.6 Technique: Multiple 1.25 mm axial sections of the lumbar spine without intravenous contrast have been obtained. 2-D sagittal and coronal reconstructions have been obtained. 3-D reconstructions have been obtained. Low dose protocols were performed. One or more of the following dose reduction techniques were used; automated exposure control, adjustment of the mA and/or KV according to patient size, use of iterative reconstruction technique. Findings: Severe osteopenia Grade 1 anterolisthesis L4 on L5, L5 on S1 No acute lumbar vertebral body fracture Advanced disc narrowing L1-L2, L2-L3, L3-L4 No spondylolisthesis L5-S1 2 mm central lumbar disc bulge L4-L5 moderate to severe overall spinal stenosis, 4 mm central lumbar disc bulge, facet arthropathy and thickening of ligamentum flavum with severe left L4 ganglionic compression L3-L4 no disc protrusion L2-L3 no disc protrusion Impression: No acute lumbar fracture Advanced degenerative disc disease L1-L2, L2-L3, L4-L5 L4-L5 moderate to severe overall spinal stenosis
--- NOTE | 2024-11-10 13:04 | XR_ITS ---
Examination: CT thoracic spine, without contrast. 2-D sagittal reconstructions. 2-D coronal reconstructions. 3-D reconstructions. Date and time of exam:November 10, 2024 1334 hrs. Indications: Patient fell yesterday with injury to the back, back pain CTDI: vol (mGy):18.0 DLP: (mGycm):573 Technique: Multiple 1.25 mm axial sections of the thoracic spine without intravenous contrast have been obtained. 2-D sagittal and coronal reconstructions have been obtained. 3-D reconstructions have been obtained. Low dose protocols were performed. One or more of the following dose reduction techniques were used; automated exposure control, adjustment of the mA and/or KV according to patient size, use of iterative reconstruction technique. Findings: Severe osteopenia Mild to moderate diffuse thoracic disc narrowing No acute thoracic vertebral body fracture Mild to moderate thoracic spondylosis Satisfactory alignment posterior spinous processes No focal thoracic disc protrusions Extensive bilateral parenchymal disease, please see the chest x-ray report November 09, 2024 Impression: Severe osteopenia No acute thoracic fracture Mild to moderate diffuse thoracic degenerative disc disease
[2024-11-10] MEDS: ALBUTEROL/IPRATROPIUM (Duoneb) RT SOL 3 ML NEBU INH ×2 (13:53→19:23)
[2024-11-10] MEDS: DEXAMETHASONE SOD PHOS INJ 10 MG/ML VIAL IV (14:30)
[2024-11-10 16:10] LABS: Base Excess, Venous 1 (-3-3); O2 Saturation, Venous 89 % (96-97); PCO2, Venous 38 mmHg (36-56); PO2, Venous 42 mmHg (15-58); pH, Venous 7.43 (7.33-7.66)
[2024-11-10 17:07] LABS: Collection Type, Urine Clean Catch; Squamous Epithelial Cell,Urine 0 /hpf (0-5)
[2024-11-10 17:31] LABS: Bilirubin,Urine Negative (Negative); Blood,Urine 2+ (Negative); Clarity,Urine Clear (Clear/Hazy); Color,Urine Yellow (Lt Yel-Yel); Glucose, Urine Negative (Negative); Ketones,Urine Negative (Negative); Leukocyte Esterase,Urine Negative (Negative); Nitrite,Urine Negative (Negative); Protein,Urine Trace (Neg - Trace); RBC,Urine 99 /hpf (0-3); Specific Gravity,Urine 1.021 (1.001-1.035); Urobilinogen,Urine Negative mg/dL (0.0-1.0); WBC,Urine 2 /hpf (0-5)
[2024-11-10] MEDS: KETOROLAC INJ 30 MG/ML VIAL IVP (20:19)
[2024-11-10] MEDS: DEXAMETHASONE SOD PHOS INJ 4 MG/ML VIAL IV (20:19)
[2024-11-10] MEDS: ATORVASTATIN CALCIUM 20 MG TABLET 40 MG PO (20:19)
--- NOTE | 2024-11-10 23:12 | VVPN_ITS ---
Telemedicine visit statement This visit was conducted with the use of interactive audio and video telecommunications system that permits real time communication between the patient and the provider. Patient's verbal consent for virtual visit was obtained on 11/10/24 at 2312. Documentation for date of: 11/10/24 Subjective Subjective Interval history: Patient is a 79-year-old female with a past past medical history of chronic bronchiectasis with scarring, hypothyroidism, hypertension, dementia and depression, of note patient was recently started on mirtazapine and donezepil upon discharge to nursing facility. She was brought to the ER as her mental status was altered. Patient is in telemetry. No changes reported since admission. She is in cervical collar, continue to have respiratory distress. Virtual exam Vital Signs Temp Pulse Resp BP Pulse Ox O2 Del Method O2 Flow Rate 97.6 F 116 H 44 H 102/49 L 100 BiPAP 1 11/10/24 20:00 11/10/24 22:16 11/10/24 22:16 11/10/24 20:00 11/10/24 22:16 11/10/24 20:00 11/10/24 20:00 FiO2 11/10/24 22:16 Objective Labs 11/12/24 04:33 11/12/24 11:16 Labs: Laboratory Results - last 24 hr 11/09/24 11/09/24 11/10/24 21:50 22:30 02:50 WBC RBC Hgb Hct MCV MCH MCHC RDW Std Deviation Plt Count Neut % (Auto) Lymph % (Auto) [place] % (Auto) Eos % (Auto) Baso % (Auto) Neut # (Auto) Lymph # (Auto) [place] # (Auto) Eos # (Auto) Baso # (Auto) Immature Gran # (Auto) Absolute Nucleated RBC Immature Gran % Nucleated RBC % Puncture Site Right Radial ABG pH 7.20 L ABG pCO2 82 H* D ABG pO2 110 H D ABG HCO3 32 H ABG O2 Saturation 98 ABG Base Excess 2 VBG pH VBG pCO2 VBG pO2 VBG O2 Sat (Cathie) VBG Base Excess Oxygen Liter Flow FiO2 30 Sodium Potassium Chloride Carbon Dioxide Anion Gap BUN Creatinine Estim Creat Clear Calc eGFR BUN/Creatinine Ratio Glucose Calculated Osmolality Calcium Phosphorus Magnesium Total Bilirubin Direct Bilirubin AST ALT Alkaline Phosphatase Total Protein Albumin Triglycerides Cholesterol LDL Cholesterol, Calc HDL Cholesterol Cholesterol/HDL Ratio Procalcitonin 0.07 TSH Free T4 Ur Collection Type Urine Color Urine Clarity Urine pH Ur Specific [place] Urine Protein Urine Glucose (UA) Urine Ketones Urine Blood Urine Nitrite Urine Bilirubin Urine Urobilinogen (Auto) Ur Leukocyte Esterase Urine RBC Urine WBC Ur Squamous Epith Cells Urine Bacteria Urine Opiates Screen Negative Urine Fentanyl Screen Negative Ur Barbiturates Screen Negative U Amphetamin/Meth Scrn Negative U Benzodiazepines Scrn Negative U Cocaine Metab Screen Negative U Marijuana (THC) Screen Negative 11/10/24 11/10/24 11/10/24 05:15 10:58 15:48 WBC 19.3 H D RBC 4.01 Hgb 12.8 Hct 39.0 MCV 97 MCH 31.9 MCHC 32.8 RDW Std Deviation 47.5 H Plt Count 134 L D Neut % (Auto) 92 H Lymph % (Auto) 3 L [place] % (Auto) 5 Eos % (Auto) 0 Baso % (Auto) 0 Neut # (Auto) 17.8 H Lymph # (Auto) 0.5 L [place] # (Auto) 0.9 H Eos # (Auto) 0.0 Baso # (Auto) 0.1 Immature Gran # (Auto) 0.07 H Absolute Nucleated RBC 0.00 Immature Gran % 0 Nucleated RBC % 0 Puncture Site Right Radial ABG pH 7.13 L* ABG pCO2 96 H* D ABG pO2 162 H D ABG HCO3 32 H ABG O2 Saturation 100 H ABG Base Excess 0 VBG pH 7.21 L 7.43 VBG pCO2 81 H 38 D VBG pO2 32 42 VBG O2 Sat (Cathie) 54 L 89 L VBG Base Excess 2 1 Oxygen Liter Flow 2 FiO2 Sodium 138 Potassium 4.4 Chloride 101 Carbon Dioxide 30.8 Anion Gap 6 L BUN 17 Creatinine 0.5 L Estim Creat Clear Calc Not Performed. eGFR > 60 BUN/Creatinine Ratio 34 H Glucose 129 H D Calculated Osmolality 279 Calcium 9.0 Phosphorus 3.9 Magnesium 1.7 Total Bilirubin 0.2 L Direct Bilirubin < 0.1 AST 50 H ALT 31 Alkaline Phosphatase 74 Total Protein 6.4 Albumin 3.7 D Triglycerides 62 Cholesterol 217 H LDL Cholesterol, Calc 113 HDL Cholesterol 92 H Cholesterol/HDL Ratio 2.4 L Procalcitonin TSH 0.34 L Free T4 1.16 Ur Collection Type Urine Color Urine Clarity Urine pH Ur Specific [place] Urine Protein Urine Glucose (UA) Urine Ketones Urine Blood Urine Nitrite Urine Bilirubin Urine Urobilinogen (Auto) Ur Leukocyte Esterase Urine RBC Urine WBC Ur Squamous Epith Cells Urine Bacteria Urine Opiates Screen Urine Fentanyl Screen Ur Barbiturates Screen U Amphetamin/Meth Scrn U Benzodiazepines Scrn U Cocaine Metab Screen U Marijuana (THC) Screen 11/10/24 17:00 WBC RBC Hgb Hct MCV MCH MCHC RDW Std Deviation Plt Count Neut % (Auto) Lymph % (Auto) [place] % (Auto) Eos % (Auto) Baso % (Auto) Neut # (Auto) Lymph # (Auto) [place] # (Auto) Eos # (Auto) Baso # (Auto) Immature Gran # (Auto) Absolute Nucleated RBC Immature Gran % Nucleated RBC % Puncture Site ABG pH ABG pCO2 ABG pO2 ABG HCO3 ABG O2 Saturation ABG Base Excess VBG pH VBG pCO2 VBG pO2 VBG O2 Sat (Cathie) VBG Base Excess Oxygen Liter Flow FiO2 Sodium Potassium Chloride Carbon Dioxide Anion Gap BUN Creatinine Estim Creat Clear Calc eGFR BUN/Creatinine Ratio Glucose Calculated Osmolality Calcium Phosphorus Magnesium Total Bilirubin Direct Bilirubin AST ALT Alkaline Phosphatase Total Protein Albumin Triglycerides Cholesterol LDL Cholesterol, Calc HDL Cholesterol Cholesterol/HDL Ratio Procalcitonin TSH Free T4 Ur Collection Type Clean Catch Urine Color Yellow Urine Clarity Clear Urine pH 6.0 Ur Specific [place] 1.021 Urine Protein Trace Urine Glucose (UA) Negative Urine Ketones Negative Urine Blood 2+ A Urine Nitrite Negative Urine Bilirubin Negative Urine Urobilinogen (Auto) Negative Ur Leukocyte Esterase Negative Urine RBC 99 H Urine WBC 2 Ur Squamous Epith Cells 0 Urine Bacteria None Urine Opiates Screen Urine Fentanyl Screen Ur Barbiturates Screen U Amphetamin/Meth Scrn U Benzodiazepines Scrn U Cocaine Metab Screen U Marijuana (THC) Screen ABG Interpretation ABG results: 11/09/24 11/10/24 11/10/24 22:42 02:50 05:15 ABG pH 7.18 L* 7.20 L ABG pCO2 93 H* 82 H* D ABG pO2 159 H 110 H D ABG HCO3 35 H 32 H ABG O2 Saturation 99 H 98 ABG Base Excess 3 2 VBG pH 7.21 L VBG pCO2 81 H VBG pO2 32 VBG Base Excess 2 11/10/24 11/10/24 10:58 15:48 ABG pH 7.13 L* ABG pCO2 96 H* D ABG pO2 162 H D ABG HCO3 32 H ABG O2 Saturation 100 H ABG Base Excess 0 VBG pH 7.43 VBG pCO2 38 D VBG pO2 42 VBG Base Excess 1 Assessment & Plan Assessment #Acute encephalopathy: likely metabolic/hypoxic #Cerebral vascular accident, ruled out Assessment: Patient is altered at bedside. Unable to follow verbal commands. Etiology likely could be due to CO2 narcosis due to elevated levels of pCO2. CT head negative. MRI of the brain: Ordered There was a concern for a cervical neck fracture however radiology report came back negative. ? PT/speech eval - No antiplatelet agents with hx of recent trauma and suspecting causes other than stroke at this point to contribute to her respiratory compromise and mental status changes. #History of dementia #History of depression Recommendations: Continue to hold donezepil and mirtazapine due to encephalopathy at this point
[2024-11-11] VITALS (12 sets, daily range): BP systolic 93–123; BP diastolic 50–67; PULSE 85–120; RESP 15–96; TEMP 36.1–37.2; O2SAT 96–100
--- NOTE | 2024-11-11 | XR_ITS ---
Examinations: MRI Brain without intravenous contrast. MRA brain without intravenous contrast. MRA carotids without intravenous contrast 3-D vascular reconstructions Date and time of exam: November 11, 2024 1711 hrs. Indications: Patient found down unconscious November 09, 2024, stroke alert Technique: Multiple axial and sagittal images of the brain have been obtained MRA brain carotid images without contrast obtained, including 3-D postprocessing, vascular maximum intensity projection images Findings: [place] is not enlarged. The optic chiasm and infundibular stalk are not remarkable. Prepontine and interpeduncular cisterns are not enlarged. No localized enlargement of the medulla or pernell. Fourth ventricle and cerebellar tonsils normal in position. Subacute hemorrhage is not seen. Fourth ventricle is midline. Mass in the cerebellopontine angle region is not evident. 7th and 8th nerve complexes exhibits symmetry. Globes are symmetrical with no retro-orbital mass. Increased white matter signal prominent Diffusion-weighted images demonstrate no focus of restricted diffusion Mass-effect upon the ventricular system is not identified. MRA carotid images degraded by patient motion. MRA brain images no large vessel occlusions Impression: Negative for acute hemorrhage mass effect or midline shift No acute infarct Prominent chronic microvascular white matter change
--- NOTE | 2024-11-11 00:06 | ECHO_ITS ---
Transthoracic Echo Report Ht (in): 59 Wt (lb): 96 Exam Location: Echo Lab Status: Inpatient [employer] Supervisor: JASS Martin^^^^ Indications: Procedure Performed: BP: 136 / 82 HR: 120 Technical Quality: Technically difficult study MEASUREMENTS (Male / Female) Normal Values 2D ECHO LV Diastolic Diameter PLAX 2.6 cm 4.2 - 5.9 / 3.9 - 5.3 cm LV Systolic Diameter PLAX 1.8 cm IVS Diastolic Thickness 1.0 cm 0.6 - 1.0 / 0.6 - 0.9 cm LVPW Diastolic Thickness 0.9 cm 0.6 - 1.0 / 0.6 - 0.9 cm LV Relative Wall Thickness 0.7 LVOT Diameter 1.6 cm Aortic Root Diameter 2.6 cm LA Systolic Diameter LX 2.5 cm 3.0 - 4.0 / 2.7 - 3.8 cm LV Ejection Fraction MOD BP 63.6 % >= 55 % LV Cardiac Index MOD BP 3443.0 cm?/min?m? LV Ejection Fraction MOD 4C 57.1 % LV Cardiac Index MOD 4C 3398.4 cm?/min?m? LV Ejection Fraction 4C AL 59.0 % LV Cardiac Index 4C AL 3730.5 cm?/min?m? LV Ejection Fraction MOD 2C 69.4 % LV Cardiac Index MOD 2C 3425.1 cm?/min?m? LV Ejection Fraction 2C AL 70.5 % LV Cardiac Index 2C AL 3557.4 cm?/min?m? LA Volume Index 36.3 cm?/m? 16 - 28 cm?/m? Ascending Aorta Diameter 3.1 cm DOPPLER AV Peak Velocity 198.0 cm/s AV Peak Gradient 15.7 mmHg AV Mean Gradient 10.0 mmHg AV Velocity Time Integral 32.6 cm LVOT Peak Velocity 175.0 cm/s LVOT Peak Gradient 12.3 mmHg LVOT Velocity Time Integral 37.8 cm LVOT Cardiac Index 6779.0 cm?/min?m? AV Area Cont Eq vti 2.3 cm? AV Area Cont Eq pk 1.8 cm? MV Area PHT 6.1 cm? MR Peak Velocity 507.5 cm/s MR Peak Gradient 103.0 mmHg Mitral E Point Velocity 78.6 cm/s Mitral A Point Velocity 167.0 cm/s Mitral E to A Ratio 0.5 LV E' Lateral Velocity 17.5 cm/s Mitral E to LV E' Lateral Ratio 4.5 LV E' Septal Velocity 14.9 cm/s Mitral E to LV E' Septal Ratio 5.3 TR Peak Velocity 349.3 cm/s TR Peak Gradient 48.8 mmHg PV Peak Velocity 115.0 cm/s PV Peak Gradient 5.3 mmHg RVOT Peak Velocity 52.5 cm/s FINDINGS Left Ventricle Normal left ventricular size, wall thickness, systolic function with no obvious regional wall motion abnormalities.there is grade III diastolic dysfunction of the left ventricle (restrictive filling pattern). The left ventricular ejection fraction is normal, estimated at 60-65%. Right Ventricle The right ventricle is normal in size and systolic function. Estimated right ventricular systolic pressure is moderately elevated, 55 mmHg. Left Atrium The left atrial cavity size is mildly increased. Right Atrium The right atrial cavity size is mildly increased. Atrial Septum The interatrial septum is normal to color flow Doppler and agitated saline imaging. Aorta The aorta is normal by two-dimensional, color flow and Doppler interrogation. Mitral Valve Moderate mitral regurgitation. Mitral annular calcification. Mild thickening of the mitral valve leaflets. Aortic Valve Mild aortic valve stenosis. Tricuspid Valve There is moderate tricuspid regurgitation. Pulmonic Valve Trivial pulmonic valve regurgitation. Vessels The pulmonary artery appears normal. The inferior vena cava pulmonary and hepatic veins appear normal. Pericardium The pericardium is normal by two-dimensional imaging. There is no significant pericardial effusion. CONCLUSIONS Indication: Stroke Bubble study negative for any PFO or ASD. TTE suboptimal and consider CANDI if high index of clinical suspicion. Normal LV size and function with an EF of 60 to 65%. Diastolic dysfunction present but cannot be graded. Mild LVH Normal RV size and function. Moderately elevated RVSP at 55 mmHg. Moderate TR Mild biatrial dilatation. Mild to moderate MR, mild MAC and thickening of leaflets. Blake Masters (Electronically Signed) Final Date: 11 November 2024 20:35
[2024-11-11] MEDS: ALBUTEROL/IPRATROPIUM (Duoneb) RT SOL 3 ML NEBU INH ×4 (00:57→18:39)
[2024-11-11 05:21] LABS: Base Excess 1 (-3-3); HCO3 33 mEq/L (20-26); Inspired O2, VO2 Liters 100 L/min; Inspired Oxygen, FIO2 21 %; O2 Saturation 100 % (91-98); PCO2 100 mmHg (32.0-48.0); PO2 258 mmHg (83-108)
[2024-11-11 05:25] LABS: pH, Arterial 7.12 (7.35-7.45)
[2024-11-11 05:26] LABS: Allen Test Performed/OK; Puncture Site Left Radial
--- NOTE | 2024-11-11 05:30 | PC.NURSE ---
Called Dr. Nugent to inform of patient's ABG results, also patient had 150mls of urine output this shift, MD came to assess patient. Patient was placed back on bipap and will be transferred to Telemetry floor.
[2024-11-11 05:49] LABS: Basophils % (Auto) 0 % (0-2.5); Eosinophils % (Auto) 0 % (0-10); Hematocrit 35.8 % (36.0-46.0); Hemoglobin 11.4 g/dL (12.0-16.0); Immature Granulocytes % (Auto) 1 % (0-0); Immature Granulocytes Auto 0.05 Thou/mm3 (0.00-0.00); Lymphocytes # (Auto) 0.5 Thou/mm3 (1.0-4.8); Lymphocytes % (Auto) 6 % (10-50); Mean Corpuscular HGB Conc 31.8 g/dl (31.0-37.0); Mean Corpuscular Hemoglobin 32.2 pg (25.0-35.0); Mean Corpuscular Volume 101 fL (80-100); Monocytes # (Auto) 0.3 Thou/mm3 (0.0-0.8); Monocytes % (Auto) 3 % (0-12); Neutrophils # (Auto) 7.4 Thou/mm3 (1.8-7.7); Neutrophils % (Auto) 90 % (37-80); Nucleated Red Blood Cell % 0 /100 WBC (0); Platelet Count 144 Thou/mm3 (140-440); RDW Standard Deviation 49.6 fL (36.4-46.3); Red Blood Count 3.54 Miln/mm3 (4.00-5.20); White Blood Count 8.2 Thou/mm3 (3.6-11.0)
[2024-11-11 05:59] LABS: Anion Gap 4 (7-16); BUN/Creatinine Ratio 38 Ratio (12-20); Blood Urea Nitrogen 19 mg/dL (9-23); Calcium 9.3 mg/dL (8.3-10.6); Carbon Dioxide 32.5 mMol/L (20.0-31.0); Chloride 105 mMol/L (98-107); Creatinine (Component) 0.5 mg/dL (0.6-1.3); Estimated Creatinine Clearance 62.2 mL/min (>60); Glucose 139 mg/dL (74-106); Osmolality,Calculated 285 (275-295); Potassium 4.6 mMol/L (3.4-5.1); Sodium 141 mMol/L (136-145); eGFR > 60 See Note
--- NOTE | 2024-11-11 06:37 | PC.NURSE ---
0630 Patient received to 264 from med surg. Pt confused, anxious on Bipap with [employer] camera in room. Notified charge nurse of need for sitter d/t confusion and bipap.
[2024-11-11] MEDS: SODIUM BICARB INJ 8.4% 1 mEq/ML VIAL 50 ML 50 MEQ IV (07:36)
[2024-11-11] MEDS: KETOROLAC INJ 30 MG/ML VIAL IVP ×2 (07:36→22:11)
[2024-11-11] MEDS: CYANOCOBALAMIN INJ 1,000 mCg/ML VIAL 1000 MCG IM (07:37)
[2024-11-11 08:29] LABS: Base Excess 8 (-3-3); HCO3 35 mEq/L (20-26); Inspired Oxygen, FIO2 21 %; O2 Saturation 91 % (91-98); PCO2 63 mmHg (32.0-48.0); pH, Arterial 7.35 (7.35-7.45)
[2024-11-11 08:31] LABS: Allen Test Performed/OK; PO2 53 mmHg (83-108); Puncture Site Right Radial
[2024-11-11] MEDS: FOLIC ACID INJ 1 MG/0.2 ML IVP (09:08)
[2024-11-11] MEDS: DEXAMETHASONE SOD PHOS INJ 4 MG/ML VIAL IV ×2 (09:08→20:27)
[2024-11-11] MEDS: PANTOPRAZOLE INJ 40 MG VIAL IV (09:08)
[2024-11-11] MEDS: NICOTINE PATCH 14 MG/24 HR PATCH.TD24 TOP (09:08)
[2024-11-11] MEDS: LORazepam 2 MG/ML VIAL 0.5 MG IVP (09:35)
[2024-11-11] MEDS: AZITHROMYCIN INJ 500 MG in SODIUM CHLORIDE 0.9% 250 ML 250 ML 250 MG IV (09:36)
[2024-11-11 12:22] LABS: Base Excess, Venous 6 (-3-3); O2 Saturation, Venous 96 % (96-97); PCO2, Venous 39 mmHg (36-56); PO2, Venous 55 mmHg (15-58); pH, Venous 7.49 (7.33-7.66)
--- NOTE | 2024-11-11 13:35 | ESPR_ITS ---
Documentation for date of: 11/11/24 Subjective Subjective Interval history: Patient seen at bedside. Overnight was not very tolerable with BiPAP and just taking it for a couple hours. ABG this morning shows a pH of 7.12 and CO2 of 100, received a one-time dose of Diamox. Patient was put back on BiPAP and about 2 hours after, repeat ABG showed pH of 7.35 with pCO2 of 63. At bedside today, patient denies pain but endorses some anxiety. Will continue antibiotics for pneumonia-ceftriaxone and azithromycin, pending blood cultures and repeat VBG and monitor respiratory status. Otherwise, will discontinue cervical collar and follow-up echocardiogram. Exam Vital Signs Temp Pulse Resp BP Pulse Ox O2 Del Method O2 Flow Rate 97.7 F 109 H 23 H 123/67 99 Nasal Cannula 2 11/11/24 12:00 11/11/24 13:00 11/11/24 13:00 11/11/24 12:00 11/11/24 13:00 11/11/24 12:00 11/11/24 13:00 FiO2 25 11/11/24 08:00 Objective Labs 11/12/24 04:33 11/12/24 04:33 Labs: Laboratory Results - last 24 hr 11/10/24 11/10/24 11/11/24 15:48 17:00 04:51 WBC 8.2 D RBC 3.54 L Hgb 11.4 L Hct 35.8 L MCV 101 H MCH 32.2 MCHC 31.8 RDW Std Deviation 49.6 H Plt Count 144 Neut % (Auto) 90 H Lymph % (Auto) 6 L [place] % (Auto) 3 Eos % (Auto) 0 Baso % (Auto) 0 Neut # (Auto) 7.4 Lymph # (Auto) 0.5 L [place] # (Auto) 0.3 Eos # (Auto) 0.0 Baso # (Auto) 0.0 Immature Gran # (Auto) 0.05 H Absolute Nucleated RBC 0.00 Immature Gran % 1 H Nucleated RBC % 0 Puncture Site ABG pH ABG pCO2 ABG pO2 ABG HCO3 ABG O2 Saturation ABG Base Excess VBG pH 7.43 VBG pCO2 38 D VBG pO2 42 VBG O2 Sat (Cathie) 89 L VBG Base Excess 1 Oxygen Liter Flow FiO2 Sodium 141 Potassium 4.6 Chloride 105 Carbon Dioxide 32.5 H Anion Gap 4 L BUN 19 Creatinine 0.5 L Estim Creat Clear Calc 62.2 eGFR > 60 BUN/Creatinine Ratio 38 H Glucose 139 H Calculated Osmolality 285 Calcium 9.3 Ur Collection Type Clean Catch Urine Color Yellow Urine Clarity Clear Urine pH 6.0 Ur Specific [place] 1.021 Urine Protein Trace Urine Glucose (UA) Negative Urine Ketones Negative Urine Blood 2+ A Urine Nitrite Negative Urine Bilirubin Negative Urine Urobilinogen (Auto) Negative Ur Leukocyte Esterase Negative Urine RBC 99 H Urine WBC 2 Ur Squamous Epith Cells 0 Urine Bacteria None 11/11/24 11/11/24 11/11/24 05:05 08:17 12:10 WBC RBC Hgb Hct MCV MCH MCHC RDW Std Deviation Plt Count Neut % (Auto) Lymph % (Auto) [place] % (Auto) Eos % (Auto) Baso % (Auto) Neut # (Auto) Lymph # (Auto) [place] # (Auto) Eos # (Auto) Baso # (Auto) Immature Gran # (Auto) Absolute Nucleated RBC Immature Gran % Nucleated RBC % Puncture Site Left Radial Right Radial ABG pH 7.12 L* 7.35 D ABG pCO2 100 H* 63 H D ABG pO2 258 H D 53 L* D ABG HCO3 33 H 35 H ABG O2 Saturation 100 H 91 ABG Base Excess 1 8 H VBG pH 7.49 VBG pCO2 39 VBG pO2 55 VBG O2 Sat (Cathie) 96 VBG Base Excess 6 H Oxygen Liter Flow 100 FiO2 21 21 Sodium Potassium Chloride Carbon Dioxide Anion Gap BUN Creatinine Estim Creat Clear Calc eGFR BUN/Creatinine Ratio Glucose Calculated Osmolality Calcium Ur Collection Type Urine Color Urine Clarity Urine pH Ur Specific [place] Urine Protein Urine Glucose (UA) Urine Ketones Urine Blood Urine Nitrite Urine Bilirubin Urine Urobilinogen (Auto) Ur Leukocyte Esterase Urine RBC Urine WBC Ur Squamous Epith Cells Urine Bacteria ABG Interpretation ABG results: 11/09/24 11/10/24 11/10/24 22:42 02:50 05:15 ABG pH 7.18 L* 7.20 L ABG pCO2 93 H* 82 H* D ABG pO2 159 H 110 H D ABG HCO3 35 H 32 H ABG O2 Saturation 99 H 98 ABG Base Excess 3 2 VBG pH 7.21 L VBG pCO2 81 H VBG pO2 32 VBG Base Excess 2 11/10/24 11/10/24 11/11/24 10:58 15:48 05:05 ABG pH 7.13 L* 7.12 L* ABG pCO2 96 H* D 100 H* ABG pO2 162 H D 258 H D ABG HCO3 32 H 33 H ABG O2 Saturation 100 H 100 H ABG Base Excess 0 1 VBG pH 7.43 VBG pCO2 38 D VBG pO2 42 VBG Base Excess 1 11/11/24 11/11/24 08:17 12:10 ABG pH 7.35 D ABG pCO2 63 H D ABG pO2 53 L* D ABG HCO3 35 H ABG O2 Saturation 91 ABG Base Excess 8 H VBG pH 7.49 VBG pCO2 39 VBG pO2 55 VBG Base Excess 6 H Quality Measures Quality Measures none Advance care planning discussed with:: other Assessment & Plan Assessment Current Active Medications: Generic Name Dose Route Start Last Admin Trade Name Freq PRN Reason Stop Dose Admin Albuterol/Ipratropium 3 ml 11/10/24 13:00 11/11/24 13:00 Albuterol/Ipratropium (Duoneb) Rt Essence 3 Ml Nebu INH 12/10/24 12:59 3 ml Q6HRRT SANDRA Administration Atorvastatin Calcium 40 mg 11/10/24 21:00 11/10/24 20:19 Atorvastatin Calcium 20 Mg Tablet PO 12/10/24 20:59 40 mg HS SANDRA Administration Dexamethasone Sodium Phosphate 4 mg 11/10/24 21:00 11/11/24 09:08 Dexamethasone Sod Phos Inj 4 Mg/Ml Vial IV 12/10/24 20:59 4 mg BID SANDRA Administration Protocol Folic Acid 1 mg 11/11/24 09:00 11/11/24 09:08 Folic Acid Inj 1 Mg/0.2 Ml IVP 12/11/24 08:59 1 mg QDAY SANDRA Administration Ceftriaxone Sodium 1,000 mg/ 50 mls @ 100 mls/hr 11/10/24 21:00 11/10/24 20:18 Sodium Chloride IV 11/17/24 20:59 100 mls/hr HS SANDRA Administration Azithromycin 500 mg/ Sodium 250 mls @ 250 mls/hr 11/11/24 09:00 11/11/24 09:36 Chloride IV 11/18/24 08:59 250 mls/hr QDAY SANDRA Administration Ketorolac Tromethamine 30 mg 11/10/24 10:17 11/11/24 07:36 Ketorolac Inj 30 Mg/Ml Vial IVP 11/15/24 10:16 30 mg Q6HR PRN Administration Pain 4-10 Labetalol HCl 10 mg 11/10/24 00:09 Labetalol Inj 5 Mg/Ml Vial 20 Ml IVP 12/10/24 05:59 Q6HR PRN SBP > 200 Levothyroxine Sodium 25 mcg 11/10/24 09:00 11/11/24 05:56 Levothyroxine Sodium 25 Mcg Tablet PO 12/10/24 08:59 Not Given ACBR SANDRA Nicotine 14 mg 11/10/24 10:30 11/11/24 09:08 Nicotine Patch 14 Mg/24 Hr Patch.Td24 TOP 12/10/24 10:29 14 mg QDAY SANDRA Administration Ondansetron HCl 4 mg 11/09/24 21:44 Ondansetron Inj 2 Mg/Ml Inj 2 Ml IV 12/09/24 21:43 Q4HR PRN NAUSEA OR VOMITING Pantoprazole Sodium 40 mg 11/10/24 09:00 11/11/24 09:08 Pantoprazole Inj 40 Mg Vial IV 12/10/24 08:59 40 mg QDAY SANDRA Administration Sennosides 2 tab 11/09/24 23:57 Senna Tablet PO 12/09/24 23:56 BID PRN CONSTIPATION Protocol Plan Summary: The patient is a 79-year-old female with a past medical history of chronic bronchiectasis, hypothyroidism, hypertension, dementia and depression is admitted for acute encephalopathy and acute hypoxic hypercarbic respiratory failure status post unwitnessed fall. #Acute encephalopathy- resolving #Acute hypoxic hypercarbic respiratory failure #Respiratory acidosis without adequate compensation #History of bronchiectasis #CAP #COPD exacerbation Most recent ABG showed pH of 7.13 pCO2 of 96 Patient will likely have to continue on BiPAP at this point, intubation is not an option Patient is retaining CO2, likely related to chronic lung disease 11/11/2024- Overnight was not very tolerable with BiPAP and just taking it for a couple hours. ABG this morning shows a pH of 7.12 and CO2 of 100, received a one-time dose of Diamox. Patient was put back on BiPAP and about 2 hours after, repeat ABG showed pH of 7.35 with pCO2 of 63. At bedside today, patient denies pain but endorses some anxiety. Will continue antibiotics for pneumonia-ceftriaxone and azithromycin, pending blood cultures and repeat VBG and monitor respiratory status. Plan: ? Continue IV ceftriaxone 1 g daily and azithromycin 250 mg ? Continue BiPAP as needed ? DuoNebs as needed ? Inform MD any changes in regards to respiratory status ? Decadron 4 mg IV every 6 hours #Fall #Stroke rule out #Cervical neck fracture- rulded out #Lumbar or thoracic spinal fracture-ruled out Patient is currently altered, status post fall, that was unwitnessed Acute encephalopathy likely factorial including metabolic ABG showed pCO2 in the 90s, was on BiPAP CT head negative Will follow-up with further imaging and continued BiPAP Telemetry neuro gave patient of NIHSS score of 20 There was some concern for cervical neck fracture, will follow-up with radiology read Concern for additional fractures, will workup 11/11/2024-all imaging so far has been negative. Will discontinue cervical collar and continue to monitor neurologic function. Plan: ? Neurology consulted, appreciate recs ? Follow-up echo ? Follow-up MRI ? Toradol 30 mg IV every 6 hours as needed ? SCDs ? Physical therapy #History of dementia #History of depression Holding donezepil and mirtazapine due to encephalopathy at this point #History of hypothyroidism TSH 0.34 Free T4 1.16 Plan: ?Continue levothyroxine 25 mcg qday #Hx of GERD Plan: ? Continue with Protonix 40 mg IV #Health Maintenance Disposition: Telemetry DVT prophylaxis: SCD GI prophylaxis: Protonix 40 mg IV Diet: Dysphagia CODE STATUS: DNR Case was discussed with Dr Gonsalez PGY-2 and attending physician, Dr Sierra Phillips MD PGY-1 Disclaimer: This note was dictated by speech recognition. Minor errors in sheet metal former may be present due to voice recognition software. LPatient examined and case discussed with the team including attending physician. Note reviewed, I agree with the care plan as documented. Ms Cabrera is a 79 year old female who was admitted for possible syncope and GLMF. She has advanced dementia and was found face down at her long term. Patient was found to have AHRF in the ED and placed on BipAP for notable respiratory acidosis on ABG. There was questionable cervical spine fracture at level C4-C5. Patient remains in a cervical collar despite CT spine negative for any acute fractures. Family counseled at bedside, she is DNR/DNI. Patient also has some bilateral parenchymal disease, as she was a chronic smoker. Loading dose Dexa 10mg IV x1 given. 11/11: Overnight BiPAP was not very tolerable. ABG this morning showed worsening acidosis: pH of 7.12 and CO2 of 100, also a one-time dose of Diamox was given. Restarted BiPAP -> repeat ABG showed improvement : pH of 7.35 and pCO2 of 63. Plan: Continue management of AHRF with BiPAP, follow up ABG. On Rocephin + Azithro + Dexa 4mg BID for underlying COPD and for spinal protection. Will re-evaluate tomorrow. Cervical collar removed, BiPAP HS to continue. - Lane Gonsalez MD, PGY 2 Disclaimer: The document below may not be free of grammatical/phonetic/typographic errors due to use of voice recognition software. This does not dissuade from the commitment to providing health care with the patient's best interest in mind. L Attending Provider Attestation/Addendum I have examined the patient, reviewed labs and imaging findings, discussed the case with the resident(s), and reviewed entered orders. I agree with the plan of care as outlined in this note, with these additional summaries/recommendations: Patient seen at bedside. Overnight patient became more altered and repeat ABG was obtained which revealed hypercapnia again and patient was placed back on BIPAP. At bedside this morning patient remains encephalopathic & not answering questions. Baseline mental status appears to be A & O x 1. Mental status most likely secondary to hypercapnia +/- infectious from pneumonia. We will continue to treat underlying causes and monitor for improvement. Patient did have ground-level fall on admission and thus far imaging negative for acute fracture. On admission tele radiology reported C4/C5 fracture although this was corrected with in-house radiology and no acute cervical fracture was mentioned. DC C- spine collar. Toradol and lidocaine patch for now for pain management and attempt to avoid opioids in the setting of altered mental status but will give if pain becomes severe. Patient also found to have acute hypoxic and hypercapnic respiratory failure most likely secondary to COPD exacerbation. Family denies previous history of COPD although does use inhalers at SNF and endorses lifelong tobacco use. We will continue with scheduled breathing treatments, IV azithromycin, and IV Decadron. Stroke alert was also called on admission and CT head was negative for acute hemorrhage, mass effect or midline shift. Teleneurology consulted and low suspicion for CVA, if no improvement we will obtain MRI brain. Continue IV Rocephin and azithromycin for community- acquired pneumonia most likely secondary to gram-negative rods. Overall prognosis remains guarded at this time. Dr. Sierra MD
--- NOTE | 2024-11-11 13:45 | PD.RESPRO ---
Documentation for date of: 11/11/24 Subjective Subjective Interval history: Patient seen and examined today with Dr. De Luna. Patient is sleeping. Not really responsive to verbal command. Airway and breathing are intact. Sitter at bedside Exam Vital Signs Temp Pulse Resp BP Pulse Ox O2 Del Method O2 Flow Rate 97.7 F 109 H 23 H 123/67 99 Nasal Cannula 2 11/11/24 12:00 11/11/24 13:00 11/11/24 13:00 11/11/24 12:00 11/11/24 13:00 11/11/24 12:00 11/11/24 13:00 FiO2 25 11/11/24 08:00 Narrative Exam General: AAOx1, appears to be altered, in cervical collar HEENT: Limited, poor dentition, in cervical collar. Purpura patch surrounding right orbital area Cardiovascular: S1, S2, radial pulses +2 bilat, RRR Pulmonary: CTAB bilat no cough, no wheezing GI: No tenderness to light or deep palpitation, no guarding, rigidity, rebound tenderness or distension Extremities: No presence of trace or pitting edema in lower extremities bilaterally, dorsalis pedis pulses +2 bilaterally Neuro: AAOx1, no focal motor or sensory deficits in the UE or LE bilat Psych: Unable to cooperate fully Objective Labs 11/11/24 04:51 11/11/24 04:51 Labs: Laboratory Results - last 24 hr 11/10/24 11/10/24 11/11/24 15:48 17:00 04:51 WBC 8.2 D RBC 3.54 L Hgb 11.4 L Hct 35.8 L MCV 101 H MCH 32.2 MCHC 31.8 RDW Std Deviation 49.6 H Plt Count 144 Neut % (Auto) 90 H Lymph % (Auto) 6 L [place] % (Auto) 3 Eos % (Auto) 0 Baso % (Auto) 0 Neut # (Auto) 7.4 Lymph # (Auto) 0.5 L [place] # (Auto) 0.3 Eos # (Auto) 0.0 Baso # (Auto) 0.0 Immature Gran # (Auto) 0.05 H Absolute Nucleated RBC 0.00 Immature Gran % 1 H Nucleated RBC % 0 Puncture Site ABG pH ABG pCO2 ABG pO2 ABG HCO3 ABG O2 Saturation ABG Base Excess VBG pH 7.43 VBG pCO2 38 D VBG pO2 42 VBG O2 Sat (Cathie) 89 L VBG Base Excess 1 Oxygen Liter Flow FiO2 Sodium 141 Potassium 4.6 Chloride 105 Carbon Dioxide 32.5 H Anion Gap 4 L BUN 19 Creatinine 0.5 L Estim Creat Clear Calc 62.2 eGFR > 60 BUN/Creatinine Ratio 38 H Glucose 139 H Calculated Osmolality 285 Calcium 9.3 Ur Collection Type Clean Catch Urine Color Yellow Urine Clarity Clear Urine pH 6.0 Ur Specific [place] 1.021 Urine Protein Trace Urine Glucose (UA) Negative Urine Ketones Negative Urine Blood 2+ A Urine Nitrite Negative Urine Bilirubin Negative Urine Urobilinogen (Auto) Negative Ur Leukocyte Esterase Negative Urine RBC 99 H Urine WBC 2 Ur Squamous Epith Cells 0 Urine Bacteria None 11/11/24 11/11/24 11/11/24 05:05 08:17 12:10 WBC RBC Hgb Hct MCV MCH MCHC RDW Std Deviation Plt Count Neut % (Auto) Lymph % (Auto) [place] % (Auto) Eos % (Auto) Baso % (Auto) Neut # (Auto) Lymph # (Auto) [place] # (Auto) Eos # (Auto) Baso # (Auto) Immature Gran # (Auto) Absolute Nucleated RBC Immature Gran % Nucleated RBC % Puncture Site Left Radial Right Radial ABG pH 7.12 L* 7.35 D ABG pCO2 100 H* 63 H D ABG pO2 258 H D 53 L* D ABG HCO3 33 H 35 H ABG O2 Saturation 100 H 91 ABG Base Excess 1 8 H VBG pH 7.49 VBG pCO2 39 VBG pO2 55 VBG O2 Sat (Cathie) 96 VBG Base Excess 6 H Oxygen Liter Flow 100 FiO2 21 21 Sodium Potassium Chloride Carbon Dioxide Anion Gap BUN Creatinine Estim Creat Clear Calc eGFR BUN/Creatinine Ratio Glucose Calculated Osmolality Calcium Ur Collection Type Urine Color Urine Clarity Urine pH Ur Specific [place] Urine Protein Urine Glucose (UA) Urine Ketones Urine Blood Urine Nitrite Urine Bilirubin Urine Urobilinogen (Auto) Ur Leukocyte Esterase Urine RBC Urine WBC Ur Squamous Epith Cells Urine Bacteria ABG Interpretation ABG results: 11/09/24 11/10/24 11/10/24 22:42 02:50 05:15 ABG pH 7.18 L* 7.20 L ABG pCO2 93 H* 82 H* D ABG pO2 159 H 110 H D ABG HCO3 35 H 32 H ABG O2 Saturation 99 H 98 ABG Base Excess 3 2 VBG pH 7.21 L VBG pCO2 81 H VBG pO2 32 VBG Base Excess 2 11/10/24 11/10/24 11/11/24 10:58 15:48 05:05 ABG pH 7.13 L* 7.12 L* ABG pCO2 96 H* D 100 H* ABG pO2 162 H D 258 H D ABG HCO3 32 H 33 H ABG O2 Saturation 100 H 100 H ABG Base Excess 0 1 VBG pH 7.43 VBG pCO2 38 D VBG pO2 42 VBG Base Excess 1 11/11/24 11/11/24 08:17 12:10 ABG pH 7.35 D ABG pCO2 63 H D ABG pO2 53 L* D ABG HCO3 35 H ABG O2 Saturation 91 ABG Base Excess 8 H VBG pH 7.49 VBG pCO2 39 VBG pO2 55 VBG Base Excess 6 H Quality Measures Quality Measures none Assessment & Plan Assessment Current Active Medications: Generic Name Dose Route Start Last Admin Trade Name Freq PRN Reason Stop Dose Admin Albuterol/Ipratropium 3 ml 11/10/24 13:00 11/11/24 13:00 Albuterol/Ipratropium (Duoneb) Rt Essence 3 Ml Nebu INH 12/10/24 12:59 3 ml Q6HRRT SNADRA Administration Atorvastatin Calcium 40 mg 11/10/24 21:00 11/10/24 20:19 Atorvastatin Calcium 20 Mg Tablet PO 12/10/24 20:59 40 mg HS SANDRA Administration Dexamethasone Sodium Phosphate 4 mg 11/10/24 21:00 11/11/24 09:08 Dexamethasone Sod Phos Inj 4 Mg/Ml Vial IV 12/10/24 20:59 4 mg BID SANDRA Administration Protocol Folic Acid 1 mg 11/11/24 09:00 11/11/24 09:08 Folic Acid Inj 1 Mg/0.2 Ml IVP 12/11/24 08:59 1 mg QDAY SANDRA Administration Ceftriaxone Sodium 1,000 mg/ 50 mls @ 100 mls/hr 11/10/24 21:00 11/10/24 20:18 Sodium Chloride IV 11/17/24 20:59 100 mls/hr HS SANDRA Administration Azithromycin 500 mg/ Sodium 250 mls @ 250 mls/hr 11/11/24 09:00 11/11/24 09:36 Chloride IV 11/18/24 08:59 250 mls/hr QDAY SANDRA Administration Ketorolac Tromethamine 30 mg 11/10/24 10:17 11/11/24 07:36 Ketorolac Inj 30 Mg/Ml Vial IVP 11/15/24 10:16 30 mg Q6HR PRN Administration Pain 4-10 Labetalol HCl 10 mg 11/10/24 00:09 Labetalol Inj 5 Mg/Ml Vial 20 Ml IVP 12/10/24 05:59 Q6HR PRN SBP > 200 Levothyroxine Sodium 25 mcg 11/10/24 09:00 11/11/24 05:56 Levothyroxine Sodium 25 Mcg Tablet PO 12/10/24 08:59 Not Given ACBR SANDRA Nicotine 14 mg 11/10/24 10:30 11/11/24 09:08 Nicotine Patch 14 Mg/24 Hr Patch.Td24 TOP 12/10/24 10:29 14 mg QDAY SANDRA Administration Ondansetron HCl 4 mg 11/09/24 21:44 Ondansetron Inj 2 Mg/Ml Inj 2 Ml IV 12/09/24 21:43 Q4HR PRN NAUSEA OR VOMITING Pantoprazole Sodium 40 mg 11/10/24 09:00 11/11/24 09:08 Pantoprazole Inj 40 Mg Vial IV 12/10/24 08:59 40 mg QDAY SANDRA Administration Sennosides 2 tab 11/09/24 23:57 Senna Tablet PO 12/09/24 23:56 BID PRN CONSTIPATION Protocol
--- NOTE | 2024-11-11 13:53 | ESCONSULT_ITS ---
HPI Data of Consult Requesting Physician: Cachorro Esquivel MD Admitting Provider: Sarbjit Cervantes MD Attending Provider: Cachorro Esquivel MD Primary Care Provider: Physician No Primary/Family Consult Narrative Reason for consult: CVA work up History of present illness: Patient is a 79-year-old female with a past past medical history of chronic bronchiectasis with scarring, hypothyroidism, hypertension, dementia and depression, of note patient was recently started on mirtazapine and donezepil upon discharge to nursing facility. Daughter contributed to the H&P, reported that patient was at her baseline mental status, when visited by family member the morning of admission, but later received a call from alf that she was found facedown on the floor, unwitnessed fall, unknown downtime. The daughter denied history of fever, cough, or seizures. Reported the patient is able to ambulate without support around the room and to the restroom on her own, but requires wheelchair assistance for longer ambulation. At the time of arrival in the ER, stroke alert was initiated and teleneuro consult was obtained, who recommended against thrombolysis as there is evidence of head trauma, also clinical presentation more consistent with encephalopathy per teleneurology. There was a concern of cervical fracture, but that was ruled out cc:: cc: Cachorro Esquivel MD Review of Systems Review of Systems Systems Reviewed: All systems reviewed, normal except as documented Exam Vital Signs Temp Pulse Resp BP Pulse Ox O2 Del Method O2 Flow Rate 97.7 F 109 H 23 H 123/67 99 Nasal Cannula 2 11/11/24 12:00 11/11/24 13:00 11/11/24 13:00 11/11/24 12:00 11/11/24 13:00 11/11/24 12:00 11/11/24 13:00 FiO2 25 11/11/24 08:00 Narrative Exam General: AAOx1, unable to follow verbal command, in cervical collar HEENT: Limited, poor dentition, in cervical collar. Purpura patch surrounding right orbital area Cardiovascular: S1, S2, radial pulses +2 bilat, RRR Pulmonary: CTAB bilat no cough, no wheezing GI: No tenderness to light or deep palpitation, no guarding, rigidity, rebound tenderness or distension Extremities: No presence of trace or pitting edema in lower extremities bilaterally, dorsalis pedis pulses +2 bilaterally Neuro: AAOx1, no focal motor or sensory deficits in the UE or LE bilat Psych: Unable to cooperate fully Results Labs 11/11/24 04:51 11/11/24 04:51 Labs: Short CBC 11/11/24 Range/Units 04:51 WBC 8.2 D (3.6-11.0) Thou/mm3 Hgb 11.4 L (12.0-16.0) g/dL Hct 35.8 L (36.0-46.0) % Plt Count 144 (140-440) Thou/mm3 BMP 11/11/24 04:51 Sodium 141 Potassium 4.6 Chloride 105 Carbon Dioxide 32.5 H BUN 19 Creatinine 0.5 L Glucose 139 H Calcium 9.3 Urine 11/10/24 Range/Units 17:00 Urine Color Yellow (Lt Yel-Yel) Urine Clarity Clear (Clear/Hazy) Urine pH 6.0 (5.0-7.0) Ur Specific [place] 1.021 (1.001-1.035) Urine Protein Trace (Neg - Trace) Urine Glucose (UA) Negative (Negative) ABG Interpretation ABG results: 11/09/24 11/10/24 11/10/24 22:42 02:50 05:15 ABG pH 7.18 L* 7.20 L ABG pCO2 93 H* 82 H* D ABG pO2 159 H 110 H D ABG HCO3 35 H 32 H ABG O2 Saturation 99 H 98 ABG Base Excess 3 2 VBG pH 7.21 L VBG pCO2 81 H VBG pO2 32 VBG Base Excess 2 11/10/24 11/10/24 11/11/24 10:58 15:48 05:05 ABG pH 7.13 L* 7.12 L* ABG pCO2 96 H* D 100 H* ABG pO2 162 H D 258 H D ABG HCO3 32 H 33 H ABG O2 Saturation 100 H 100 H ABG Base Excess 0 1 VBG pH 7.43 VBG pCO2 38 D VBG pO2 42 VBG Base Excess 1 11/11/24 11/11/24 08:17 12:10 ABG pH 7.35 D ABG pCO2 63 H D ABG pO2 53 L* D ABG HCO3 35 H ABG O2 Saturation 91 ABG Base Excess 8 H VBG pH 7.49 VBG pCO2 39 VBG pO2 55 VBG Base Excess 6 H Quality Measures Quality Measures none Advance care planning discussed with:: other Medications Home Medications and Allergies Home Medications ?Medication ?Instructions ?Recorded ?Confirmed ?Type pantoprazole 40 mg tablet,delayed 40 mg PO DAILY 06/1011/10/24 History release donepezil 10 mg tablet (Aricept) 10 mg PO ONCE HS 08/1911/10/24 History mirtazapine 15 mg tablet 15 mg PO HS 09/14/24 5 History levothyroxine 25 mcg tablet 25 mcg PO DAILY 11/10/24 0 11/10/24 History Allergies Allergy/AdvReac Type Severity Reaction Status Date / Time acetaminophen Allergy Severe DIZZY Verified 09/13/24 16:23 hydrocodone Allergy Severe DIZZY Verified 09/13/24 16:23 codeine Allergy Mild MAKES ME Verified 09/13/24 16:23 SICK Visit Medications Albuterol/Ipratropium (Albuterol/Ipratropium (Duoneb) Rt Essence 3 Ml Nebu) 3 ml INH Q6HRRT [facility] Stop: 12/10/24 12:59 Last Admin: 11/11/24 13:00 Dose: 3 ml Atorvastatin Calcium (Atorvastatin Calcium 20 Mg Tablet) 40 mg PO HS [facility] Stop: 12/10/24 20:59 Last Admin: 11/10/24 20:19 Dose: 40 mg Dexamethasone Sodium Phosphate (Dexamethasone Sod Phos Inj 4 Mg/Ml Vial) 4 mg IV BID [facility]; Protocol Stop: 12/10/24 20:59 Last Admin: 11/11/24 09:08 Dose: 4 mg Folic Acid (Folic Acid Inj 1 Mg/0.2 Ml) 1 mg IVP QDAY [facility] Stop: 12/11/24 08:59 Last Admin: 11/11/24 09:08 Dose: 1 mg Ceftriaxone Sodium 1,000 mg/ (Sodium Chloride) 50 mls @ 100 mls/hr IV HS [facility] Stop: 11/17/24 20:59 Last Admin: 11/10/24 20:18 Dose: 100 mls/hr Azithromycin 500 mg/ Sodium (Chloride) 250 mls @ 250 mls/hr IV QDAY [facility] Stop: 11/18/24 08:59 Last Admin: 11/11/24 09:36 Dose: 250 mls/hr Ketorolac Tromethamine (Ketorolac Inj 30 Mg/Ml Vial) 30 mg IVP Q6HR PRN PRN Reason: Pain 4-10 Stop: 11/15/24 10:16 Last Admin: 11/11/24 07:36 Dose: 30 mg Labetalol HCl (Labetalol Inj 5 Mg/Ml Vial 20 Ml) 10 mg IVP Q6HR PRN PRN Reason: SBP > 200 Stop: 12/10/24 05:59 Levothyroxine Sodium (Levothyroxine Sodium 25 Mcg Tablet) 25 mcg PO ACBR [facility] Stop: 12/10/24 08:59 Last Admin: 11/11/24 05:56 Dose: Not Given Nicotine (Nicotine Patch 14 Mg/24 Hr Patch.Td24) 14 mg TOP QDAY [facility] Stop: 12/10/24 10:29 Last Admin: 11/11/24 09:08 Dose: 14 mg Ondansetron HCl (Ondansetron Inj 2 Mg/Ml Inj 2 Ml) 4 mg IV Q4HR PRN PRN Reason: NAUSEA OR VOMITING Stop: 12/09/24 21:43 Pantoprazole Sodium (Pantoprazole Inj 40 Mg Vial) 40 mg IV QDAY [facility] Stop: 12/10/24 08:59 Last Admin: 11/11/24 09:08 Dose: 40 mg Sennosides (Senna Tablet) 2 tab PO BID PRN; Protocol PRN Reason: CONSTIPATION Stop: 12/09/24 23:56 Discontinued Medications Cyanocobalamin (Cyanocobalamin Inj 1,000 Mcg/Ml Vial) 1,000 mcg IM X1 ONE Stop: 11/11/24 07:28 Last Admin: 11/11/24 07:37 Dose: 1,000 mcg Dexamethasone Sodium Phosphate (Dexamethasone Sod Phos Inj 10 Mg/Ml Vial) 10 mg IV X1 ONE Stop: 11/10/24 13:22 Last Admin: 11/10/24 14:30 Dose: 10 mg Dexamethasone Sodium Phosphate (Dexamethasone Sod Phos Inj 4 Mg/Ml Vial) 4 mg IV Q6HR [facility]; Protocol Stop: 11/12/24 09:00 Ceftriaxone Sodium 1,000 mg/ (Sodium Chloride) 50 mls @ 100 mls/hr IV X1 ONE Stop: 11/10/24 00:59 Last Infusion: 11/10/24 01:06 Dose: Infused Sodium Chloride (Ns) 1,000 mls @ 999 mls/hr IV .Q1H1M ONE Stop: 11/10/24 03:05 Last Infusion: 11/10/24 03:23 Dose: Infused Sodium Chloride (Ns) 1,000 mls @ 75 mls/hr IV .[id number] [facility] Stop: 12/10/24 02:05 Last Admin: 11/10/24 03:38 Dose: 75 mls/hr Azithromycin 500 mg/ Sodium (Chloride) 250 mls @ 250 mls/hr IV X1 ONE Stop: 11/10/24 06:59 Last Admin: 11/10/24 07:52 Dose: 250 mls/hr Magnesium Sulfate (Magnesium Sulfate Ivpb) 2 gm in 50 mls @ 25 mls/hr IV X1 ONE Stop: 11/10/24 12:14 Last Admin: 11/10/24 10:58 Dose: 25 mls/hr Levothyroxine Sodium (Levothyroxine Sodium 25 Mcg Tablet) 25 mcg PO DAILY [facility] Stop: 12/10/24 08:59 Lidocaine (Lidocaine 5% 1 Patch) 1 patch TOP X1 ONE Stop: 11/10/24 10:18 Last Admin: 11/10/24 10:58 Dose: 1 patch Lorazepam (Lorazepam 2 Mg/Ml Vial) 0.5 mg IVP X1 ONE Stop: 11/11/24 09:10 Last Admin: 11/11/24 09:35 Dose: 0.5 mg Pantoprazole Sodium (Pantoprazole 40 Mg Tablet) 40 mg PO QDAY [facility] Stop: 12/10/24 08:59 Sodium Bicarbonate (Sodium Bicarb Inj 8.4% 1 Meq/Ml Vial 50 Ml) 50 meq IV X1 ONE Stop: 11/11/24 07:31 Last Admin: 11/11/24 07:36 Dose: 50 meq Assessment & Plan Plan #Acute encephalopathy: likely metabolic/hypoxic #Cerebral vascular accident, ruled out Assessment: Patient is altered at bedside. Unable to follow verbal commands. Etiology likely could be due to CO2 narcosis due to elevated levels of pCO2. CT head negative. There was a concern for a cervical neck fracture however radiology report came back negative. Recommendations ? Follow-up echo, taken pending read ? Follow-up MRI, pending ? SCDs, for DVT prophylaxis ? PT/speech eval - No antiplatelet agents with hx of recent trauma and suspecting causes other than stroke at this point to contribute to her respiratory compromise and mental status changes. #History of dementia #History of depression Recommendations: Continue to hold donezepil and mirtazapine due to encephalopathy at this point - Patient's care was discussed with my attending physician, Dr. Calixto Ren MD Internal Medicine PGY-3 Attending Provider Attestation/Addendum Patient was seen and examined with resident at the bedside, and agreed with his findings, assessment and plan. Patient does not need to be on antiplatelet agent as stroke is not the cause for the presenting symptom, likely from metabolic encephalopathy. Will FU with MRI brain anyway.
[2024-11-11] MEDS: cefTRIAXone 1,000 MG in SODIUM CHLORIDE 0.9% (Popper) 50 ML 100 MG IV (20:27)
[2024-11-12] VITALS (14 sets, daily range): BP systolic 110–162; BP diastolic 58–96; PULSE 89–119; RESP 16–36; TEMP 36.2–36.6; O2SAT 91–100
[2024-11-12 05:13] LABS: Basophils % (Auto) 0 % (0-2.5); Eosinophils % (Auto) 0 % (0-10); Hematocrit 33.4 % (36.0-46.0); Hemoglobin 10.4 g/dL (12.0-16.0); Immature Granulocytes % (Auto) 0 % (0-0); Immature Granulocytes Auto 0.04 Thou/mm3 (0.00-0.00); Lymphocytes # (Auto) 0.6 Thou/mm3 (1.0-4.8); Lymphocytes % (Auto) 5 % (10-50); Mean Corpuscular HGB Conc 31.1 g/dl (31.0-37.0); Mean Corpuscular Hemoglobin 31.8 pg (25.0-35.0); Mean Corpuscular Volume 102 fL (80-100); Monocytes # (Auto) 0.3 Thou/mm3 (0.0-0.8); Monocytes % (Auto) 3 % (0-12); Neutrophils # (Auto) 9.8 Thou/mm3 (1.8-7.7); Neutrophils % (Auto) 91 % (37-80); Nucleated Red Blood Cell % 0 /100 WBC (0); Platelet Count 147 Thou/mm3 (140-440); RDW Standard Deviation 51.1 fL (36.4-46.3); Red Blood Count 3.27 Miln/mm3 (4.00-5.20); White Blood Count 10.8 Thou/mm3 (3.6-11.0)
[2024-11-12] MEDS: LEVOTHYROXINE SODIUM 25 MCG TABLET PO (05:19)
[2024-11-12 05:32] LABS: Anion Gap 4 (7-16); BUN/Creatinine Ratio 40 Ratio (12-20); Blood Urea Nitrogen 24 mg/dL (9-23); Calcium 9.1 mg/dL (8.3-10.6); Carbon Dioxide 35.4 mMol/L (20.0-31.0); Chloride 105 mMol/L (98-107); Creatinine (Component) 0.6 mg/dL (0.6-1.3); Estimated Creatinine Clearance 51.9 mL/min (>60); Glucose 143 mg/dL (74-106); Osmolality,Calculated 292 (275-295); Potassium 5.4 mMol/L (3.4-5.1); Sodium 144 mMol/L (136-145); eGFR > 60 See Note
[2024-11-12] MEDS: ALBUTEROL/IPRATROPIUM (Duoneb) RT SOL 3 ML NEBU INH ×3 (06:14→19:23)
[2024-11-12 08:07] LABS: Magnesium 2.4 mg/dL (1.6-2.6)
[2024-11-12] MEDS: DEXTROSE 50%-WATER INJ 50 ML SYRINGE IV (08:46)
[2024-11-12] MEDS: INSULIN HUM REGULAR 1 UNIT/0.01 ML (PER UNIT) 5 UNIT IV (08:46)
[2024-11-12 08:50] LABS: Base Excess, Venous 7 (-3-3); O2 Saturation, Venous 78 % (96-97); PCO2, Venous 76 mmHg (36-56); PO2, Venous 40 mmHg (15-58); pH, Venous 7.29 (7.33-7.66)
[2024-11-12] MEDS: NICOTINE PATCH 14 MG/24 HR PATCH.TD24 TOP (08:55)
[2024-11-12] MEDS: DEXAMETHASONE SOD PHOS INJ 4 MG/ML VIAL IV ×2 (08:55→21:02)
[2024-11-12] MEDS: PANTOPRAZOLE INJ 40 MG VIAL IV (08:55)
[2024-11-12] MEDS: AZITHROMYCIN INJ 500 MG in SODIUM CHLORIDE 0.9% 250 ML 250 ML 250 MG IV (08:58)
--- NOTE | 2024-11-12 09:43 | ESPR_ITS ---
<Statement entered by Lane Gonsalez MD - 11/12/24 16:02> Patient was examined with the team including attending physician. Note reviewed, I agree with the treatment plan as documented. - Lane Gonsalez M.D. PGY2 Disclaimer: The document below may not be free of grammatical/phonetic/typographic errors due to use of voice recognition software. This does not dissuade from the commitment to providing health care with the patient's best interest in mind. Documentation for date of: 11/12/24 Subjective Subjective Interval history: HPI is limited as patient is currently on BiPAP Patient examined at bedside today. She is able to be directed when asked a question, however does not answer and moans at times. White count of 10.8, hemoglobin 10.4, potassium 5.4, BUN/creatinine 24 and 0.6, bicarb 35. Exam Vital Signs Temp Pulse Resp BP Pulse Ox O2 Del Method O2 Flow Rate 97.5 F 94 24 H 117/64 100 BiPAP 2 11/12/24 08:00 11/12/24 08:00 11/12/24 08:00 11/12/24 08:00 11/12/24 08:00 11/12/24 08:00 11/12/24 08:00 FiO2 30 11/12/24 08:00 Narrative Exam General: AAOx1, appears to be in some pain HEENT: Limited, poor dentition, Purpura patch surrounding right orbital area Cardiovascular: S1, S2, radial pulses +2 bilat, RRR Pulmonary: IPAP 14, EPAP 6, respiratory rate 24, FiO2 of 30 on BiPAP GI: No tenderness to light or deep palpitation, no guarding, rigidity, rebound tenderness or distension Extremities: No presence of trace or pitting edema in lower extremities bilaterally, dorsalis pedis pulses +2 bilaterally Neuro: AAOx1, no focal motor or sensory deficits in the UE or LE bilat Psych: Unable to cooperate fully Objective Labs 11/14/24 08:15 11/14/24 08:15 Labs: Laboratory Results - last 24 hr 11/11/24 11/12/24 11/12/24 12:10 04:33 08:26 WBC 10.8 RBC 3.27 L Hgb 10.4 L Hct 33.4 L MCV 102 H MCH 31.8 MCHC 31.1 RDW Std Deviation 51.1 H Plt Count 147 Neut % (Auto) 91 H Lymph % (Auto) 5 L [place] % (Auto) 3 Eos % (Auto) 0 Baso % (Auto) 0 Neut # (Auto) 9.8 H Lymph # (Auto) 0.6 L [place] # (Auto) 0.3 Eos # (Auto) 0.0 Baso # (Auto) 0.0 Immature Gran # (Auto) 0.04 H Absolute Nucleated RBC 0.00 Immature Gran % 0 Nucleated RBC % 0 VBG pH 7.49 7.29 L VBG pCO2 39 76 H D VBG pO2 55 40 VBG O2 Sat (Cathie) 96 78 L VBG Base Excess 6 H 7 H Sodium 144 Potassium 5.4 H D Chloride 105 Carbon Dioxide 35.4 H Anion Gap 4 L BUN 24 H Creatinine 0.6 Estim Creat Clear Calc 51.9 L eGFR > 60 BUN/Creatinine Ratio 40 H Glucose 143 H Calculated Osmolality 292 Calcium 9.1 Magnesium 2.4 ABG Interpretation ABG results: 11/09/24 11/10/24 11/10/24 22:42 02:50 05:15 ABG pH 7.18 L* 7.20 L ABG pCO2 93 H* 82 H* D ABG pO2 159 H 110 H D ABG HCO3 35 H 32 H ABG O2 Saturation 99 H 98 ABG Base Excess 3 2 VBG pH 7.21 L VBG pCO2 81 H VBG pO2 32 VBG Base Excess 2 11/10/24 11/10/24 11/11/24 10:58 15:48 05:05 ABG pH 7.13 L* 7.12 L* ABG pCO2 96 H* D 100 H* ABG pO2 162 H D 258 H D ABG HCO3 32 H 33 H ABG O2 Saturation 100 H 100 H ABG Base Excess 0 1 VBG pH 7.43 VBG pCO2 38 D VBG pO2 42 VBG Base Excess 1 11/11/24 11/11/24 11/12/24 08:17 12:10 08:26 ABG pH 7.35 D ABG pCO2 63 H D ABG pO2 53 L* D ABG HCO3 35 H ABG O2 Saturation 91 ABG Base Excess 8 H VBG pH 7.49 7.29 L VBG pCO2 39 76 H D VBG pO2 55 40 VBG Base Excess 6 H 7 H Quality Measures Quality Measures none Advance care planning discussed with:: patient Assessment & Plan Assessment Current Active Medications: Generic Name Dose Route Start Last Admin Trade Name Freq PRN Reason Stop Dose Admin Albuterol/Ipratropium 3 ml 11/10/24 13:00 11/12/24 06:14 Albuterol/Ipratropium (Duoneb) Rt Essence 3 Ml Nebu INH 12/10/24 12:59 3 ml Q6HRRT [facility] Administration Atorvastatin Calcium 40 mg 11/10/24 21:00 11/11/24 20:28 Atorvastatin Calcium 20 Mg Tablet PO 12/10/24 20:59 Not Given HS [facility] Dexamethasone Sodium Phosphate 4 mg 11/10/24 21:00 11/12/24 08:55 Dexamethasone Sod Phos Inj 4 Mg/Ml Vial IV 12/10/24 20:59 4 mg BID [facility] Administration Protocol Dextrose 25 ml 11/12/24 07:47 Dextrose 50%-Water Inj 50 Ml Syringe IV 12/12/24 07:46 Q15MIN PRN BG 50-70 responsive npo pt Dextrose 50 ml 11/12/24 07:47 Dextrose 50%-Water Inj 50 Ml Syringe IV 12/12/24 07:46 Q15MIN PRN BG <50 OR BG <70 & pt unresponsive Folic Acid 1 mg 11/11/24 09:00 11/11/24 09:08 Folic Acid Inj 1 Mg/0.2 Ml IVP 12/11/24 08:59 1 mg QDAY [facility] Administration Glucagon 1 mg 11/12/24 07:47 Glucagon Inj 1 Mg Vial IM Q15MIN PRN BG <70, and no IV access Ceftriaxone Sodium 1,000 mg/ 50 mls @ 100 mls/hr 11/10/24 21:00 11/11/24 20:27 Sodium Chloride IV 11/17/24 20:59 100 mls/hr HS [facility] Administration Azithromycin 500 mg/ Sodium 250 mls @ 250 mls/hr 11/11/24 09:00 11/12/24 08:58 Chloride IV 11/18/24 08:59 250 mls/hr QDAY [facility] Administration Ketorolac Tromethamine 30 mg 11/10/24 10:17 11/11/24 22:11 Ketorolac Inj 30 Mg/Ml Vial IVP 11/15/24 10:16 30 mg Q6HR PRN Administration Pain 4-10 Labetalol HCl 10 mg 11/10/24 00:09 Labetalol Inj 5 Mg/Ml Vial 20 Ml IVP 12/10/24 05:59 Q6HR PRN SBP > 200 Levothyroxine Sodium 25 mcg 11/10/24 09:00 11/12/24 05:19 Levothyroxine Sodium 25 Mcg Tablet PO 12/10/24 08:59 25 mcg ACBR [facility] Administration Lorazepam 0.5 mg 11/11/24 17:30 Lorazepam 2 Mg/Ml Vial IVP 11/16/24 17:29 X1 PRN Agitation MRI Nicotine 14 mg 11/10/24 10:30 11/12/24 08:55 Nicotine Patch 14 Mg/24 Hr Patch.Td24 TOP 12/10/24 10:29 14 mg QDAY [facility] Administration Ondansetron HCl 4 mg 11/09/24 21:44 Ondansetron Inj 2 Mg/Ml Inj 2 Ml IV 12/09/24 21:43 Q4HR PRN NAUSEA OR VOMITING Pantoprazole Sodium 40 mg 11/10/24 09:00 11/12/24 08:55 Pantoprazole Inj 40 Mg Vial IV 12/10/24 08:59 40 mg QDAY [facility] Administration Sennosides 2 tab 11/09/24 23:57 Senna Tablet PO 12/09/24 23:56 BID PRN CONSTIPATION Protocol Plan Summary: The patient is a 79-year-old female with a past medical history of chronic bronchiectasis, hypothyroidism, hypertension, dementia and depression is admitted for acute encephalopathy and acute hypoxic hypercarbic respiratory failure status post unwitnessed fall. #Acute encephalopathy secondary to carbon dioxide narcosis #Acute hypoxic hypercarbic respiratory failure #Respiratory acidosis without adequate compensation #History of bronchiectasis #CAP #COPD exacerbation Most recent ABG showed pH of 7.13 pCO2 of 96 Patient will likely have to continue on BiPAP at this point, intubation is not an option Patient is retaining CO2, likely related to chronic lung disease 11/11/2024- Overnight was not very tolerable with BiPAP and just taking it for a couple hours. ABG this morning shows a pH of 7.12 and CO2 of 100, received a one-time dose of Diamox. Patient was put back on BiPAP and about 2 hours after, repeat ABG showed pH of 7.35 with pCO2 of 63. At bedside today, patient denies pain but endorses some anxiety. Will continue antibiotics for pneumonia-ceftriaxone and azithromycin, pending blood cultures and repeat VBG and monitor respiratory status. 11/12/2024: Patient continues to be a bit altered and is unable to fully respond to questions, VBG shows pCO2 of 76, pH is 7.39 Patient continues to be on BiPAP, however is not having metabolic compensation in is not improving Patient's encephalopathy likely related to carbon dioxide narcosis Will likely need to have goals of care discussion with family in regards to further management Plan: ? Continue IV ceftriaxone 1 g daily and azithromycin 250 mg (11/10?) ? Continue BiPAP as needed ? Follow-up VBG at 7 PM ? DuoNebs as needed ? Inform MD any changes in regards to respiratory status ? Decadron 4 mg IV every 6 hours #Fall #Stroke rule out #Cervical neck fracture- rulded out #Lumbar or thoracic spinal fracture-ruled out Patient is currently altered, status post fall, that was unwitnessed Acute encephalopathy likely factorial including metabolic ABG showed pCO2 in the 90s, was on BiPAP CT head negative Will follow-up with further imaging and continued BiPAP Telemetry neuro gave patient of NIHSS score of 20 Other imaging studies have been negative Cervical collar removed Echo negative for PFO MRI shows no acute hemorrhage, stroke, midline shift or mass effect Dispo for patient upon PT recs include SNF Plan: ? Neurology consulted, appreciate recs ? Toradol 30 mg IV every 6 hours as needed ? SCDs ? Physical therapy #History of dementia #History of depression Holding donezepil and mirtazapine due to encephalopathy at this point #History of hypothyroidism TSH 0.34 Free T4 1.16 Plan: ?Continue levothyroxine 25 mcg qday #Hx of GERD Plan: ? Continue with Protonix 40 mg IV #Health Maintenance Disposition: Telemetry DVT prophylaxis: SCDs GI prophylaxis: Protonix Diet: Dysphagia CODE STATUS: DNR Patient seen and care discussed with my senior resident, Dr. Gonsalez, and my attending physician, Dr. Sierra Rausch, PGY-1 Attending Provider Attestation/Addendum I have examined the patient, reviewed labs and imaging findings, discussed the case with the resident(s), and reviewed entered orders. I agree with the plan of care as outlined in this note, with these additional summaries/recommendations: Patient seen at bedside. At bedside this morning patient remains encephalopathic & not answering questions. Baseline mental status appears to be A & O x 1.She opens eyes to light sternal rub. Mental status most likely secondary to hypercapnia +/- infectious from pneumonia. We will continue to treat underlying causes and monitor for improvement. MRI brain negative for acute CVA and neurology following. Unfortunately prognosis is guarded given patient keeps requiring BIPAP for hypercapnia. Patient did have ground-level fall on admission and thus far imaging negative for acute fracture. On admission tele radiology reported C4/C5 fracture although this was corrected with in-house radiology and no acute cervical fracture was mentioned. DC C- spine collar. Toradol and lidocaine patch for pain management and attempt to avoid opioids in the setting of altered mental status but will give if pain becomes severe. Does have wound to swelling of orbit from ground level fall with superficial swelling although no orbital fracture. Patient also found to have acute hypoxic and hypercapnic respiratory failure most likely secondary to COPD exacerbation +/- pneumonia. Family denies previous history of COPD although does use inhalers at SNF and endorses lifelong tobacco use. We will continue with scheduled breathing treatments, IV azithromycin, and IV Decadron. Continue IV Rocephin and azithromycin for community-acquired pneumonia most likely secondary to gram-negative rods. Overall prognosis remains guarded at this time, pending further goals of care. Dr. Sierra MD
[2024-11-12 11:14] LABS: Base Excess, Venous 6 (-3-3); O2 Saturation, Venous 84 % (96-97); PCO2, Venous 77 mmHg (36-56); PO2, Venous 46 mmHg (15-58); pH, Venous 7.27 (7.33-7.66)
[2024-11-12 11:43] LABS: Albumin, Serum 3.6 gm/dL (3.4-4.8); Anion Gap 5 (7-16); BUN/Creatinine Ratio 40 Ratio (12-20); Blood Urea Nitrogen 24 mg/dL (9-23); Calcium 9.5 mg/dL (8.3-10.6); Calcium (Corrected) 9.8 mg/dL (8.5-10.1); Carbon Dioxide 34.3 mMol/L (20.0-31.0); Chloride 108 mMol/L (98-107); Creatinine (Component) 0.6 mg/dL (0.6-1.3); Estimated Creatinine Clearance 51.9 mL/min (>60); Glucose 130 mg/dL (74-106); Osmolality,Calculated 298 (275-295); Phosphorous 1.7 mg/dL (2.4-5.1); Potassium 4.3 mMol/L (3.4-5.1); Sodium 147 mMol/L (136-145); eGFR > 60 See Note
[2024-11-12] MEDS: FOLIC ACID INJ 1 MG/0.2 ML IVP (12:42)
--- NOTE | 2024-11-12 13:59 | ESPR_ITS ---
Documentation for date of: 11/12/24 Subjective Subjective Interval history: Patient seen and examined this AM. No changes from yesterday. No events overnight. Able to look at you however does not answer or follow verbal commands. On BIpap Exam Vital Signs Temp Pulse Resp BP Pulse Ox O2 Del Method O2 Flow Rate 97.4 F 105 H 18 162/96 H 99 BiPAP 2 11/12/24 12:00 11/12/24 13:30 11/12/24 13:30 11/12/24 12:00 11/12/24 13:30 11/12/24 12:00 11/12/24 13:30 FiO2 30 11/12/24 13:25 Narrative Exam General: unable to follow verbal command, in cervical collar HEENT: Limited, poor dentition, in cervical collar. Purpura patch surrounding right orbital area Cardiovascular: S1, S2, radial pulses +2 bilat, RRR Pulmonary: CTAB bilat no cough, no wheezing GI: No tenderness to light or deep palpitation, no guarding, rigidity, rebound tenderness or distension Extremities: No presence of trace or pitting edema in lower extremities bilaterally, dorsalis pedis pulses +2 bilaterally Neuro: limited exam, lethargic, unable to follow commands. Psych: Unable to cooperate fully Objective Labs 11/12/24 04:33 11/12/24 11:16 Labs: Laboratory Results - last 24 hr 11/12/24 11/12/24 11/12/24 04:33 08:26 11:00 WBC 10.8 RBC 3.27 L Hgb 10.4 L Hct 33.4 L MCV 102 H MCH 31.8 MCHC 31.1 RDW Std Deviation 51.1 H Plt Count 147 Neut % (Auto) 91 H Lymph % (Auto) 5 L [place] % (Auto) 3 Eos % (Auto) 0 Baso % (Auto) 0 Neut # (Auto) 9.8 H Lymph # (Auto) 0.6 L [place] # (Auto) 0.3 Eos # (Auto) 0.0 Baso # (Auto) 0.0 Immature Gran # (Auto) 0.04 H Absolute Nucleated RBC 0.00 Immature Gran % 0 Nucleated RBC % 0 VBG pH 7.29 L 7.27 L VBG pCO2 76 H D 77 H VBG pO2 40 46 VBG O2 Sat (Cathie) 78 L 84 L VBG Base Excess 7 H 6 H Sodium 144 Potassium 5.4 H D Chloride 105 Carbon Dioxide 35.4 H Anion Gap 4 L BUN 24 H Creatinine 0.6 Estim Creat Clear Calc 51.9 L eGFR > 60 BUN/Creatinine Ratio 40 H Glucose 143 H Calculated Osmolality 292 Calcium 9.1 Corrected Calcium Phosphorus Magnesium 2.4 Albumin 11/12/24 11:16 WBC RBC Hgb Hct MCV MCH MCHC RDW Std Deviation Plt Count Neut % (Auto) Lymph % (Auto) [place] % (Auto) Eos % (Auto) Baso % (Auto) Neut # (Auto) Lymph # (Auto) [place] # (Auto) Eos # (Auto) Baso # (Auto) Immature Gran # (Auto) Absolute Nucleated RBC Immature Gran % Nucleated RBC % VBG pH VBG pCO2 VBG pO2 VBG O2 Sat (Cathie) VBG Base Excess Sodium 147 H Potassium 4.3 D Chloride 108 H Carbon Dioxide 34.3 H Anion Gap 5 L BUN 24 H Creatinine 0.6 Estim Creat Clear Calc 51.9 L eGFR > 60 BUN/Creatinine Ratio 40 H Glucose 130 H Calculated Osmolality 298 H Calcium 9.5 Corrected Calcium 9.8 Phosphorus 1.7 L Magnesium Albumin 3.6 ABG Interpretation ABG results: 11/09/24 11/10/24 11/10/24 22:42 02:50 05:15 ABG pH 7.18 L* 7.20 L ABG pCO2 93 H* 82 H* D ABG pO2 159 H 110 H D ABG HCO3 35 H 32 H ABG O2 Saturation 99 H 98 ABG Base Excess 3 2 VBG pH 7.21 L VBG pCO2 81 H VBG pO2 32 VBG Base Excess 2 11/10/24 11/10/24 11/11/24 10:58 15:48 05:05 ABG pH 7.13 L* 7.12 L* ABG pCO2 96 H* D 100 H* ABG pO2 162 H D 258 H D ABG HCO3 32 H 33 H ABG O2 Saturation 100 H 100 H ABG Base Excess 0 1 VBG pH 7.43 VBG pCO2 38 D VBG pO2 42 VBG Base Excess 1 11/11/24 11/11/24 11/12/24 08:17 12:10 08:26 ABG pH 7.35 D ABG pCO2 63 H D ABG pO2 53 L* D ABG HCO3 35 H ABG O2 Saturation 91 ABG Base Excess 8 H VBG pH 7.49 7.29 L VBG pCO2 39 76 H D VBG pO2 55 40 VBG Base Excess 6 H 7 H 11/12/24 11:00 ABG pH ABG pCO2 ABG pO2 ABG HCO3 ABG O2 Saturation ABG Base Excess VBG pH 7.27 L VBG pCO2 77 H VBG pO2 46 VBG Base Excess 6 H Quality Measures Quality Measures none Advance care planning discussed with:: other Assessment & Plan Assessment Current Active Medications: Generic Name Dose Route Start Last Admin Trade Name Freq PRN Reason Stop Dose Admin Albuterol/Ipratropium 3 ml 11/10/24 13:00 11/12/24 13:23 Albuterol/Ipratropium (Duoneb) Rt Essence 3 Ml Nebu INH 12/10/24 12:59 3 ml Q6HRRT SANDRA Administration Atorvastatin Calcium 40 mg 11/10/24 21:00 11/11/24 20:28 Atorvastatin Calcium 20 Mg Tablet PO 12/10/24 20:59 Not Given HS SANDRA Dexamethasone Sodium Phosphate 4 mg 11/10/24 21:00 11/12/24 08:55 Dexamethasone Sod Phos Inj 4 Mg/Ml Vial IV 12/10/24 20:59 4 mg BID SANDRA Administration Protocol Dextrose 25 ml 11/12/24 07:47 Dextrose 50%-Water Inj 50 Ml Syringe IV 12/12/24 07:46 Q15MIN PRN BG 50-70 responsive npo pt Dextrose 50 ml 11/12/24 07:47 Dextrose 50%-Water Inj 50 Ml Syringe IV 12/12/24 07:46 Q15MIN PRN BG <50 OR BG <70 & pt unresponsive Folic Acid 1 mg 11/11/24 09:00 11/12/24 12:42 Folic Acid Inj 1 Mg/0.2 Ml IVP 12/11/24 08:59 1 mg QDAY SANDRA Administration Glucagon 1 mg 11/12/24 07:47 Glucagon Inj 1 Mg Vial IM Q15MIN PRN BG <70, and no IV access Ceftriaxone Sodium 1,000 mg/ 50 mls @ 100 mls/hr 11/10/24 21:00 11/11/24 20:27 Sodium Chloride IV 11/17/24 20:59 100 mls/hr HS SANDRA Administration Azithromycin 500 mg/ Sodium 250 mls @ 250 mls/hr 11/11/24 09:00 11/12/24 08:58 Chloride IV 11/18/24 08:59 250 mls/hr QDAY SANDRA Administration Ketorolac Tromethamine 30 mg 11/10/24 10:17 11/11/24 22:11 Ketorolac Inj 30 Mg/Ml Vial IVP 11/15/24 10:16 30 mg Q6HR PRN Administration Pain 4-10 Labetalol HCl 10 mg 11/10/24 00:09 Labetalol Inj 5 Mg/Ml Vial 20 Ml IVP 12/10/24 05:59 Q6HR PRN SBP > 200 Levothyroxine Sodium 25 mcg 11/10/24 09:00 11/12/24 05:19 Levothyroxine Sodium 25 Mcg Tablet PO 12/10/24 08:59 25 mcg ACBR SANDRA Administration Lorazepam 0.5 mg 11/11/24 17:30 Lorazepam 2 Mg/Ml Vial IVP 11/16/24 17:29 X1 PRN Agitation MRI Nicotine 14 mg 11/10/24 10:30 11/12/24 08:55 Nicotine Patch 14 Mg/24 Hr Patch.Td24 TOP 12/10/24 10:29 14 mg QDAY SANDRA Administration Ondansetron HCl 4 mg 11/09/24 21:44 Ondansetron Inj 2 Mg/Ml Inj 2 Ml IV 12/09/24 21:43 Q4HR PRN NAUSEA OR VOMITING Pantoprazole Sodium 40 mg 11/10/24 09:00 11/12/24 08:55 Pantoprazole Inj 40 Mg Vial IV 12/10/24 08:59 40 mg QDAY SANDRA Administration Sennosides 2 tab 11/09/24 23:57 Senna Tablet PO 12/09/24 23:56 BID PRN CONSTIPATION Protocol Plan #Acute encephalopathy: likely metabolic/hypoxic/hypercapnenia #Cerebral vascular accident, ruled out Assessment: Patient is altered at bedside. Unable to follow verbal commands. Etiology likely could be due to CO2 narcosis due to elevated levels of pCO2. CT head negative. There was a concern for a cervical neck fracture however radiology report came back negative. MRI brain without acute stroke, prominent chronic white matter changes. - No antiplatelet agents with hx of recent trauma and suspecting causes other than stroke at this point to contribute to her respiratory compromise and mental status changes. #History of dementia #History of depression Recommendations: Continue to hold donezepil and mirtazapine due to encephalopathy at this point Patient's care was discussed with my attending physician, Dr. Calixto Ren MD Internal Medicine PGY-3 Attending Provider Attestation/Addendum I reviewed the patient's chart and I agreed with the resident's findings, assessment and plan of care. With underlying dementia at baseline and lack of improvement since admission, family has agreed to consider hospice care.
--- NOTE | 2024-11-12 14:30 | PC.SS ---
Rounding Note: Patient on BI-PAP. Goals of care discussion requested for today.
--- NOTE | 2024-11-12 15:00 | PC.SS ---
RECOVERY COLLECTOR conducted bedside contact with the patient conduct initial assessment and to discuss discharge planning.? At bedside with patient was daughter, Carmen Villa .? Daughter provided information for assessment and discharge planning.? Patient is a resident of [facility], [facility].? Patient has been residing at facility for approximately 1 month.? Patient utilizes a wheelchair to assist with mobility.? Patient does not utilize oxygen at the facility.? Patient currently on 2L nasal cannula.? Patient requires assistance with completion of ADL?s.? Patient?s medical surrogate decision maker is daughter, Carmen Villa.? Patient?s PCP is Dr. Cristina Santiago.? Patient does not possess any specialty providers.? Patient does not participate with dialysis.? Discharge plan is for the patient to return to [facility].? implementation services analyst to assist with arranging transportation on behalf of the patient.? No further intervention required at this time, social media assistant will be available to address any further concerns.? Next of Kin: Carmen Villa D/C Plan: [facility]
--- NOTE | 2024-11-12 15:13 | PC.SS ---
MACHINE I CUTTER conducted phone contact with patient's daughter, Carmen Villa ; to schedule goals of care discussion. Patient's daughter agreed to meet with medical team at 03:30 pm today. MACHINE I CUTTER updated resident.
--- NOTE | 2024-11-12 15:46 | EVENTNT_ITS ---
<Statement entered by Lane Gonsalez MD - 11/12/24 15:55> Patient was examined with the team including attending physician. Note reviewed, I agree with the event plan as documented. Goals of care discussion with family today at 3:30PM -- Patient is now on HOSPICE CARE. - Lane Gonsalez M.D. PGY2 Disclaimer: The document below may not be free of grammatical/ph onetic/typographic errors due to use of voice recognition software. This does not dissuade from the commitment to providing health care with the patient's best interest in mind. Documentation for date of: 11/12/24 Event Note Event Note: Goals of care conversation held with social work, medical team and patient's daughter. Poor prognosis and patient's condition discussed with patient's daughter. After discussion, patient's daughter decided to continue with hospice for patient and would like a referral. She will let us know if she wants hospice with home or a alf. Patient seen and care discussed with my senior resident, Dr. Gonsalez , and my attending physician, Dr. Sierra Rausch, PGY-1
--- NOTE | 2024-11-12 16:59 | PC.SS ---
Goals of care discussion conducted with the patient?s daughter, Carmen Villa .? Medical team consisted of: Dr. Ricks, Dr. Gonsalez and Dr. Canchola.? Medical team provided overview on the patient?s medical condition, interventions and prognosis.? Medical team discussed that patient was continuing to retain CO2 in spite of BI-PAP intervention.? Discussed that patient was not demonstrating improvement with mental status.? MRI ruled out acute stroke.? Due to patient?s comorbidities medical team discussed comfort care option with the patient?s daughter.? Medical team that transition to comfort care would result in not pursing life sustaining intervention on behalf of the patient.? Focus would be to offer pain medication for comfort measures.? Patient?s daughter informed SWING TENDER of need to discuss matter with other family members.? Patient?s daughter to update medical team tomorrow with decision.? If decision is to transition the patient to comfort care, patient?s daughter would like patient to return home.? SWING TENDER informed patient?s daughter need to ensure that family member/s present with patient upon return home.? If hospice is elected, patient?s daughter preferred hospice agency is [facility].? SWING TENDER updated Dr. Miller.?
--- NOTE | 2024-11-12 17:02 | PC.SS ---
SUPPORT SPECIALIST informed Dr. Miller that patient's daughter, Carmen Villa; is requesting time to discuss comfort care measures with family members. Patient is not transitioned to comfort care measures at this time.
[2024-11-12] MEDS: ATORVASTATIN CALCIUM 20 MG TABLET 40 MG PO (20:56)
[2024-11-12] MEDS: POT PHOS 15 mMol in NS 250 ML 15 MMOL/250 ML BAG 62.5 MMOL IV (21:00)
[2024-11-12] MEDS: cefTRIAXone 1,000 MG in SODIUM CHLORIDE 0.9% (Popper) 50 ML 100 MG IV (21:00)
[2024-11-12] MEDS: KETOROLAC INJ 30 MG/ML VIAL IVP (21:27)
[2024-11-12] MEDS: LORazepam 2 MG/ML VIAL 0.25 MG IVP (23:09)
[2024-11-13] VITALS (14 sets, daily range): BP systolic 100–145; BP diastolic 54–77; PULSE 95–122; RESP 14–96; TEMP 36.1–36.9; O2SAT 95–100; BMI 19.4
[2024-11-13] MEDS: ALBUTEROL/IPRATROPIUM (Duoneb) RT SOL 3 ML NEBU INH ×4 (00:54→19:34)
[2024-11-13 05:20] LABS: Base Excess, Venous 8 (-3-3); O2 Saturation, Venous 96 % (96-97); PCO2, Venous 72 mmHg (36-56); PO2, Venous 69 mmHg (15-58)
[2024-11-13] MEDS: LEVOTHYROXINE SODIUM 25 MCG TABLET PO (05:26)
[2024-11-13 08:25] LABS: Alanine Aminotransferase 24 U/L (10-49); Albumin, Serum 3.5 gm/dL (3.4-4.8); Albumin/Globulin Ratio 1.5 (1.2-2.2); Alkaline Phosphatase 57 U/L (46-116); Anion Gap 3 (7-16); Aspartate Amino Transferase 20 U/L (0-34); BUN/Creatinine Ratio 48 Ratio (12-20); Bilirubin,Total 0.3 mg/dL (0.3-1.2); Blood Urea Nitrogen 24 mg/dL (9-23); Calcium 9.4 mg/dL (8.3-10.6); Calcium (Corrected) 9.8 mg/dL (8.5-10.1); Carbon Dioxide 36.3 mMol/L (20.0-31.0); Chloride 107 mMol/L (98-107); Creatinine (Component) 0.5 mg/dL (0.6-1.3); Estimated Creatinine Clearance 62.2 mL/min (>60); Globulin 2.3 gm/dL (2.3-3.5); Glucose 156 mg/dL (74-106); Osmolality,Calculated 297 (275-295); Potassium 4.8 mMol/L (3.4-5.1); Sodium 146 mMol/L (136-145); Total Protein 5.8 gm/dL (5.7-8.2); eGFR > 60 See Note
[2024-11-13 08:31] LABS: Basophils % (Auto) 0 % (0-2.5); Eosinophils % (Auto) 0 % (0-10); Hemoglobin 10.7 g/dL (12.0-16.0); Immature Granulocytes % (Auto) 0 % (0-0); Immature Granulocytes Auto 0.03 Thou/mm3 (0.00-0.00); Lymphocytes # (Auto) 0.5 Thou/mm3 (1.0-4.8); Lymphocytes % (Auto) 7 % (10-50); Mean Corpuscular HGB Conc 30.6 g/dl (31.0-37.0); Mean Corpuscular Hemoglobin 31.8 pg (25.0-35.0); Mean Corpuscular Volume 104 fL (80-100); Monocytes # (Auto) 0.3 Thou/mm3 (0.0-0.8); Monocytes % (Auto) 4 % (0-12); Neutrophils # (Auto) 6.1 Thou/mm3 (1.8-7.7); Neutrophils % (Auto) 89 % (37-80); Nucleated Red Blood Cell % 0 /100 WBC (0); Platelet Count 142 Thou/mm3 (140-440); RDW Standard Deviation 51.8 fL (36.4-46.3); Red Blood Count 3.36 Miln/mm3 (4.00-5.20); White Blood Count 6.9 Thou/mm3 (3.6-11.0)
[2024-11-13] MEDS: FOLIC ACID INJ 1 MG/0.2 ML IVP (08:38)
[2024-11-13] MEDS: DEXAMETHASONE SOD PHOS INJ 4 MG/ML VIAL IV ×2 (08:38→20:19)
[2024-11-13] MEDS: PANTOPRAZOLE INJ 40 MG VIAL IV (08:38)
[2024-11-13] MEDS: NICOTINE PATCH 14 MG/24 HR PATCH.TD24 TOP (08:39)
[2024-11-13] MEDS: AZITHROMYCIN INJ 500 MG in SODIUM CHLORIDE 0.9% 250 ML 250 ML 250 MG IV (08:39)
--- NOTE | 2024-11-13 10:30 | CHAP ---
A friend was with the patient. The patient did not speak, but her friend asked that I pray for her so we prayed over her at her bedside.
--- NOTE | 2024-11-13 13:25 | ESPR_ITS ---
<Statement entered by Uziel Ricks MD - 11/15/24 08:56> Senior Resident Attestation: I supervised/discussed management plan with hospital intern physician Dr. Rausch, and was involved in the care of this patient. I personally saw and examined the patient and discussed the assessment and plan with the entire medicine team, including my attending. I agree with the assessment and plan as documented. Patient's care was discussed with attending physician, Dr. Nuñez. Uziel Ricks MD PGY-2. Documentation for date of: 11/13/24 Subjective Subjective Interval history: Pt examined at bedside today. No acute overnight events. Pt appears that she is doing okay. She is able to respond to some questions, but her answers are limited at this time. No other complaints at this time. Exam Vital Signs Temp Pulse Resp BP Pulse Ox O2 Del Method O2 Flow Rate 97.7 F 108 H 24 H 133/74 H 100 BiPAP 2 11/14/24 12:00 11/14/24 12:11/14/24 12:27 11/14/24 12:00 11/14/24 12:11/14/24 12:11/14/24 12: FiO2 30 11/14/24 07:04 Narrative Exam General: AAOx1, opening eyes, able to answer some questions HEENT: Limited, poor dentition, Purpura patch surrounding right orbital area Cardiovascular: S1, S2, radial pulses +2 bilat, RRR Pulmonary: IPAP 14, EPAP 6, respiratory rate 24, FiO2 of 30 on BiPAP GI: No tenderness to light or deep palpitation, no guarding, rigidity, rebound tenderness or distension : Irvin catheter present Extremities: No presence of trace or pitting edema in lower extremities bilaterally, dorsalis pedis pulses +2 bilaterally Neuro: AAOx1, limited motor and sensory exam due to patient being weak Psych: Unable to cooperate fully Objective Labs 11/15/24 05:02 11/15/24 05:02 Labs: Laboratory Results - last 24 hr 11/14/24 08:15 WBC 7.7 RBC 3.71 L Hgb 11.8 L Hct 38.8 MCV 105 H MCH 31.8 MCHC 30.4 L RDW Std Deviation 51.1 H Plt Count 107 L D Neut % (Auto) 79 Lymph % (Auto) 12 [place] % (Auto) 8 Eos % (Auto) 0 Baso % (Auto) 0 Neut # (Auto) 6.0 Lymph # (Auto) 0.9 L [place] # (Auto) 0.6 Eos # (Auto) 0.0 Baso # (Auto) 0.0 Immature Gran # (Auto) 0.03 H Absolute Nucleated RBC 0.00 Immature Gran % 0 Nucleated RBC % 0 VBG pH 7.34 VBG pCO2 73 H VBG pO2 42 D VBG O2 Sat (Cathie) 84 L VBG Base Excess 10 H Sodium 146 H Potassium 4.9 Chloride 105 Carbon Dioxide 39.8 H Anion Gap 1 L BUN 21 Creatinine 0.5 L Estim Creat Clear Calc 62.2 eGFR > 60 BUN/Creatinine Ratio 42 H Glucose 129 H Calculated Osmolality 295 Calcium 9.7 ABG Interpretation ABG results: 11/09/24 11/10/24 11/10/24 22:42 02:50 05:15 ABG pH 7.18 L* 7.20 L ABG pCO2 93 H* 82 H* D ABG pO2 159 H 110 H D ABG HCO3 35 H 32 H ABG O2 Saturation 99 H 98 ABG Base Excess 3 2 VBG pH 7.21 L VBG pCO2 81 H VBG pO2 32 VBG Base Excess 2 11/10/24 11/10/24 11/11/24 10:58 15:48 05:05 ABG pH 7.13 L* 7.12 L* ABG pCO2 96 H* D 100 H* ABG pO2 162 H D 258 H D ABG HCO3 32 H 33 H ABG O2 Saturation 100 H 100 H ABG Base Excess 0 1 VBG pH 7.43 VBG pCO2 38 D VBG pO2 42 VBG Base Excess 1 11/11/24 11/11/24 11/12/24 08:17 12:10 08:26 ABG pH 7.35 D ABG pCO2 63 H D ABG pO2 53 L* D ABG HCO3 35 H ABG O2 Saturation 91 ABG Base Excess 8 H VBG pH 7.49 7.29 L VBG pCO2 39 76 H D VBG pO2 55 40 VBG Base Excess 6 H 7 H 11/12/24 11/13/24 11/14/24 11:00 05:03 08:15 ABG pH ABG pCO2 ABG pO2 ABG HCO3 ABG O2 Saturation ABG Base Excess VBG pH 7.27 L 7.30 L 7.34 VBG pCO2 77 H 72 H 73 H VBG pO2 46 69 H D 42 D VBG Base Excess 6 H 8 H 10 H Quality Measures Quality Measures none Advance care planning discussed with:: patient and child Assessment & Plan Assessment Current Active Medications: Generic Name Dose Route Start Last Admin Trade Name Freq PRN Reason Stop Dose Admin Albuterol/Ipratropium 3 ml 11/10/24 13:00 11/14/24 12:26 Albuterol/Ipratropium (Duoneb) Rt Essence 3 Ml Nebu INH 12/10/24 12:59 3 ml Q6HRRT SANDRA Administration Atorvastatin Calcium 40 mg 11/10/24 21:00 11/13/24 20:19 Atorvastatin Calcium 20 Mg Tablet PO 12/10/24 20:59 40 mg HS SANDRA Administration Dexamethasone Sodium Phosphate 4 mg 11/10/24 21:00 11/14/24 09:32 Dexamethasone Sod Phos Inj 4 Mg/Ml Vial IV 12/10/24 20:59 4 mg BID SANDRA Administration Protocol Dextrose 25 ml 11/12/24 07:47 Dextrose 50%-Water Inj 50 Ml Syringe IV 12/12/24 07:46 Q15MIN PRN BG 50-70 responsive npo pt Dextrose 50 ml 11/12/24 07:47 Dextrose 50%-Water Inj 50 Ml Syringe IV 12/12/24 07:46 Q15MIN PRN BG <50 OR BG <70 & pt unresponsive Folic Acid 1 mg 11/11/24 09:00 11/14/24 09:32 Folic Acid Inj 1 Mg/0.2 Ml IVP 12/11/24 08:59 1 mg QDAY SANDRA Administration Glucagon 1 mg 11/12/24 07:47 Glucagon Inj 1 Mg Vial IM Q15MIN PRN BG <70, and no IV access Ceftriaxone Sodium 1,000 mg/ 50 mls @ 100 mls/hr 11/10/24 21:00 11/13/24 20:19 Sodium Chloride IV 11/17/24 20:59 100 mls/hr HS SANDRA Administration Azithromycin 500 mg/ Sodium 250 mls @ 250 mls/hr 11/11/24 09:00 11/14/24 09:33 Chloride IV 11/18/24 08:59 250 mls/hr QDAY SANDRA Administration Ketorolac Tromethamine 30 mg 11/10/24 10:17 11/13/24 14:40 Ketorolac Inj 30 Mg/Ml Vial IVP 11/15/24 10:16 30 mg Q6HR PRN Administration Pain 4-10 Labetalol HCl 10 mg 11/10/24 00:09 Labetalol Inj 5 Mg/Ml Vial 20 Ml IVP 12/10/24 05:59 Q6HR PRN SBP > 200 Levothyroxine Sodium 25 mcg 11/10/24 09:00 11/14/24 05:37 Levothyroxine Sodium 25 Mcg Tablet PO 12/10/24 08:59 25 mcg ACBR SANDRA Administration Lorazepam 0.5 mg 11/11/24 17:30 Lorazepam 2 Mg/Ml Vial IVP 11/16/24 17:29 X1 PRN Agitation MRI Nicotine 14 mg 11/10/24 10:30 11/14/24 09:33 Nicotine Patch 14 Mg/24 Hr Patch.Td24 TOP 12/10/24 10:29 14 mg QDAY SANDRA Administration Ondansetron HCl 4 mg 11/09/24 21:44 Ondansetron Inj 2 Mg/Ml Inj 2 Ml IV 12/09/24 21:43 Q4HR PRN NAUSEA OR VOMITING Pantoprazole Sodium 40 mg 11/10/24 09:00 11/14/24 09:32 Pantoprazole Inj 40 Mg Vial IV 12/10/24 08:59 40 mg QDAY SANDRA Administration Sennosides 2 tab 11/09/24 23:57 Senna Tablet PO 12/09/24 23:56 BID PRN CONSTIPATION Protocol Plan Summary: The patient is a 79-year-old female with a past medical history of chronic bronchiectasis, hypothyroidism, hypertension, dementia and depression is admitted for acute encephalopathy and acute hypoxic hypercarbic respiratory failure status post unwitnessed fall. #Acute encephalopathy secondary to carbon dioxide narcosis #Acute hypoxic hypercarbic respiratory failure #Respiratory acidosis without adequate compensation #History of bronchiectasis #CAP #COPD exacerbation Most recent ABG showed pH of 7.13 pCO2 of 96 Patient will likely have to continue on BiPAP at this point, intubation is not an option Patient is retaining CO2, likely related to chronic lung disease 11/11/2024- Overnight was not very tolerable with BiPAP and just taking it for a couple hours. ABG this morning shows a pH of 7.12 and CO2 of 100, received a one-time dose of Diamox. Patient was put back on BiPAP and about 2 hours after, repeat ABG showed pH of 7.35 with pCO2 of 63. At bedside today, patient denies pain but endorses some anxiety. Will continue antibiotics for pneumonia-ceftriaxone and azithromycin, pending blood cultures and repeat VBG and monitor respiratory status. 11/12/2024: Patient continues to be a bit altered and is unable to fully respond to questions, VBG shows pCO2 of 76, pH is 7.39 Patient continues to be on BiPAP, however is not having metabolic compensation in is not improving Patient's encephalopathy likely related to carbon dioxide narcosis Will likely need to have goals of care discussion with family in regards to further management 11/13/2024: VBG still shows PCO2 in 70s, however, pt is more awake and alert. Used biPAP last night Pt's family to decide if hospice will be their decision moving forward Plan: ? Continue IV ceftriaxone 1 g daily and azithromycin 250 mg (11/10?) ? Continue BiPAP as needed ? DuoNebs as needed ? Inform MD any changes in regards to respiratory status ? Decadron 4 mg IV every 6 hours #Fall #Stroke rule out #Cervical neck fracture- rulded out #Lumbar or thoracic spinal fracture-ruled out Patient is currently altered, status post fall, that was unwitnessed Acute encephalopathy likely factorial including metabolic ABG showed pCO2 in the 90s, was on BiPAP CT head negative Will follow-up with further imaging and continued BiPAP Telemetry neuro gave patient of NIHSS score of 20 Other imaging studies have been negative Cervical collar removed Echo negative for PFO MRI shows no acute hemorrhage, stroke, midline shift or mass effect Dispo for patient upon PT recs include SNF Plan: ? Neurology consulted, appreciate recs ? Toradol 30 mg IV every 6 hours as needed ? SCDs ? Physical therapy #History of dementia #History of depression Holding donezepil and mirtazapine due to encephalopathy at this point #History of hypothyroidism TSH 0.34 Free T4 1.16 Plan: ?Continue levothyroxine 25 mcg qday #Hx of GERD Plan: ? Continue with Protonix 40 mg IV #Health Maintenance Disposition: Telemetry DVT prophylaxis: SCDs GI prophylaxis: Protonix Diet: Dysphagia CODE STATUS: DNR Patient seen and care discussed with my senior resident, Dr. Rikcs, and my attending physician, Dr. Savannah Rausch, PGY-1 Attending Provider Attestation/Addendum I have discussed and was present for the essential components of the history, physical examination, diagnosis, and treatment plan with the resident. I agree with the patient's care as documented by the resident and amended herein by me. Lizandro Nuñez DO. Although this document has been carefully reviewed, there may still be some phonetic and other typographical errors. These errors are purely grammatical due to imperfections in the software program and should not be construed in any way to compromise the substance of the patient's medical care during this visit.
[2024-11-13] MEDS: KETOROLAC INJ 30 MG/ML VIAL IVP (14:40)
--- NOTE | 2024-11-13 14:40 | PC.SS ---
WEBSITE PROGRAMMER confirmed with patient's daughter, Carmen; that hospice will not be pursued at this current time. Patient's daughter reports that patient looks better today then previous days of the week. WEBSITE PROGRAMMER updated resident team. D/C plan will be for patient to return to [facility] once medically cleared.
--- NOTE | 2024-11-13 14:42 | PC.SS ---
Rounding Note: Hospice has been declined by patient's family. Once medically cleared d/c to SNF.
--- NOTE | 2024-11-13 16:08 | PD.RESPRO ---
Documentation for date of: 11/13/24 Subjective Subjective Interval history: Patient seen and examined this AM. No changes from yesterday. No events overnight. Able to look at you however does not answer or follow verbal commands. Exam Vital Signs Temp Pulse Resp BP Pulse Ox O2 Del Method O2 Flow Rate 97.6 F 104 H 20 121/77 100 Nasal Cannula 2 11/13/24 15:55 11/13/24 15:55 11/13/24 15:55 11/13/24 15:55 11/13/24 15:55 11/13/24 15:55 11/13/24 15:55 FiO2 30 11/13/24 15:55 Narrative Exam General: unable to follow verbal command, in cervical collar HEENT: Limited, poor dentition, in cervical collar. Purpura patch surrounding right orbital area Cardiovascular: S1, S2, radial pulses +2 bilat, RRR Pulmonary: CTAB bilat no cough, no wheezing GI: No tenderness to light or deep palpitation, no guarding, rigidity, rebound tenderness or distension Extremities: No presence of trace or pitting edema in lower extremities bilaterally, dorsalis pedis pulses +2 bilaterally Neuro: limited exam, awake, able to smile, look around, unable to follow commands. Psych: Unable to cooperate fully Objective Labs 11/13/24 05:03 11/13/24 05:03 Labs: Laboratory Results - last 24 hr 11/13/24 05:03 WBC 6.9 RBC 3.36 L Hgb 10.7 L Hct 35.0 L MCV 104 H MCH 31.8 MCHC 30.6 L RDW Std Deviation 51.8 H Plt Count 142 Neut % (Auto) 89 H Lymph % (Auto) 7 L [place] % (Auto) 4 Eos % (Auto) 0 Baso % (Auto) 0 Neut # (Auto) 6.1 Lymph # (Auto) 0.5 L [place] # (Auto) 0.3 Eos # (Auto) 0.0 Baso # (Auto) 0.0 Immature Gran # (Auto) 0.03 H Absolute Nucleated RBC 0.00 Immature Gran % 0 Nucleated RBC % 0 VBG pH 7.30 L VBG pCO2 72 H VBG pO2 69 H D VBG O2 Sat (Cathie) 96 VBG Base Excess 8 H Sodium 146 H Potassium 4.8 D Chloride 107 Carbon Dioxide 36.3 H Anion Gap 3 L BUN 24 H Creatinine 0.5 L Estim Creat Clear Calc 62.2 eGFR > 60 BUN/Creatinine Ratio 48 H Glucose 156 H Calculated Osmolality 297 H Calcium 9.4 Corrected Calcium 9.8 Total Bilirubin 0.3 AST 20 ALT 24 Alkaline Phosphatase 57 D Total Protein 5.8 Albumin 3.5 Globulin 2.3 Albumin/Globulin Ratio 1.5 ABG Interpretation ABG results: 11/09/24 11/10/24 11/10/24 22:42 02:50 05:15 ABG pH 7.18 L* 7.20 L ABG pCO2 93 H* 82 H* D ABG pO2 159 H 110 H D ABG HCO3 35 H 32 H ABG O2 Saturation 99 H 98 ABG Base Excess 3 2 VBG pH 7.21 L VBG pCO2 81 H VBG pO2 32 VBG Base Excess 2 11/10/24 11/10/24 11/11/24 10:58 15:48 05:05 ABG pH 7.13 L* 7.12 L* ABG pCO2 96 H* D 100 H* ABG pO2 162 H D 258 H D ABG HCO3 32 H 33 H ABG O2 Saturation 100 H 100 H ABG Base Excess 0 1 VBG pH 7.43 VBG pCO2 38 D VBG pO2 42 VBG Base Excess 1 11/11/24 11/11/24 11/12/24 08:17 12:10 08:26 ABG pH 7.35 D ABG pCO2 63 H D ABG pO2 53 L* D ABG HCO3 35 H ABG O2 Saturation 91 ABG Base Excess 8 H VBG pH 7.49 7.29 L VBG pCO2 39 76 H D VBG pO2 55 40 VBG Base Excess 6 H 7 H 11/12/24 11/13/24 11:00 05:03 ABG pH ABG pCO2 ABG pO2 ABG HCO3 ABG O2 Saturation ABG Base Excess VBG pH 7.27 L 7.30 L VBG pCO2 77 H 72 H VBG pO2 46 69 H D VBG Base Excess 6 H 8 H Quality Measures Quality Measures none Advance care planning discussed with:: other Assessment & Plan Assessment Current Active Medications: Generic Name Dose Route Start Last Admin Trade Name Freq PRN Reason Stop Dose Admin Albuterol/Ipratropium 3 ml 11/10/24 13:00 11/13/24 12:41 Albuterol/Ipratropium (Duoneb) Rt Essence 3 Ml Nebu INH 12/10/24 12:59 3 ml Q6HRRT SANDRA Administration Atorvastatin Calcium 40 mg 11/10/24 21:00 11/12/24 20:56 Atorvastatin Calcium 20 Mg Tablet PO 12/10/24 20:59 40 mg HS SANDRA Administration Dexamethasone Sodium Phosphate 4 mg 11/10/24 21:00 11/13/24 08:38 Dexamethasone Sod Phos Inj 4 Mg/Ml Vial IV 12/10/24 20:59 4 mg BID SANDRA Administration Protocol Dextrose 25 ml 11/12/24 07:47 Dextrose 50%-Water Inj 50 Ml Syringe IV 12/12/24 07:46 Q15MIN PRN BG 50-70 responsive npo pt Dextrose 50 ml 11/12/24 07:47 Dextrose 50%-Water Inj 50 Ml Syringe IV 12/12/24 07:46 Q15MIN PRN BG <50 OR BG <70 & pt unresponsive Folic Acid 1 mg 11/11/24 09:00 11/13/24 08:38 Folic Acid Inj 1 Mg/0.2 Ml IVP 12/11/24 08:59 1 mg QDAY SANDRA Administration Glucagon 1 mg 11/12/24 07:47 Glucagon Inj 1 Mg Vial IM Q15MIN PRN BG <70, and no IV access Ceftriaxone Sodium 1,000 mg/ 50 mls @ 100 mls/hr 11/10/24 21:00 11/12/24 21:00 Sodium Chloride IV 11/17/24 20:59 100 mls/hr HS SANDRA Administration Azithromycin 500 mg/ Sodium 250 mls @ 250 mls/hr 11/11/24 09:00 11/13/24 08:39 Chloride IV 11/18/24 08:59 250 mls/hr QDAY SANDRA Administration Ketorolac Tromethamine 30 mg 11/10/24 10:17 11/13/24 14:40 Ketorolac Inj 30 Mg/Ml Vial IVP 11/15/24 10:16 30 mg Q6HR PRN Administration Pain 4-10 Labetalol HCl 10 mg 11/10/24 00:09 Labetalol Inj 5 Mg/Ml Vial 20 Ml IVP 12/10/24 05:59 Q6HR PRN SBP > 200 Levothyroxine Sodium 25 mcg 11/10/24 09:00 11/13/24 05:26 Levothyroxine Sodium 25 Mcg Tablet PO 12/10/24 08:59 25 mcg ACBR SANDRA Administration Lorazepam 0.5 mg 11/11/24 17:30 Lorazepam 2 Mg/Ml Vial IVP 11/16/24 17:29 X1 PRN Agitation MRI Nicotine 14 mg 11/10/24 10:30 11/13/24 08:39 Nicotine Patch 14 Mg/24 Hr Patch.Td24 TOP 12/10/24 10:29 14 mg QDAY SANDRA Administration Ondansetron HCl 4 mg 11/09/24 21:44 Ondansetron Inj 2 Mg/Ml Inj 2 Ml IV 12/09/24 21:43 Q4HR PRN NAUSEA OR VOMITING Pantoprazole Sodium 40 mg 11/10/24 09:00 11/13/24 08:38 Pantoprazole Inj 40 Mg Vial IV 12/10/24 08:59 40 mg QDAY SANDRA Administration Sennosides 2 tab 11/09/24 23:57 Senna Tablet PO 12/09/24 23:56 BID PRN CONSTIPATION Protocol Plan #Acute encephalopathy: likely metabolic/hypoxic/hypercapnenia #Cerebral vascular accident, ruled out Assessment: Patient is altered at bedside. Unable to follow verbal commands. Etiology likely could be due to CO2 narcosis due to elevated levels of pCO2. CT head negative. There was a concern for a cervical neck fracture however radiology report came back negative. MRI brain without acute stroke, prominent chronic white matter changes. Recommendations: Poor prognosis -Family wants to hold off On hospice care #History of dementia #History of depression Recommendations: Continue to hold donezepil and mirtazapine due to encephalopathy at this point Patient's care was discussed with my attending physician, Dr. Calixto Ren MD Internal Medicine PGY-3 Attending Provider Attestation/Addendum I have seen and examined the patient at the bedside and they agree with resident findings assessment and plan of care. Even though patient is awake and alert but not following commands. Patient's family wants to have hospice care on hold until talks to rest of the family members
[2024-11-13] MEDS: cefTRIAXone 1,000 MG in SODIUM CHLORIDE 0.9% (Popper) 50 ML 100 MG IV (20:19)
[2024-11-13] MEDS: ATORVASTATIN CALCIUM 20 MG TABLET 40 MG PO (20:19)
[2024-11-14] VITALS (11 sets, daily range): BP systolic 125–147; BP diastolic 64–83; PULSE 98–126; RESP 15–34; TEMP 36.1–37.6; O2SAT 93–100
[2024-11-14] MEDS: ALBUTEROL/IPRATROPIUM (Duoneb) RT SOL 3 ML NEBU INH ×4 (01:22→17:55)
[2024-11-14] MEDS: LEVOTHYROXINE SODIUM 25 MCG TABLET PO (05:37)
[2024-11-14 08:39] LABS: Base Excess, Venous 10 (-3-3); O2 Saturation, Venous 84 % (96-97); PCO2, Venous 73 mmHg (36-56); PO2, Venous 42 mmHg (15-58); pH, Venous 7.34 (7.33-7.66)
[2024-11-14 08:41] LABS: Basophils % (Auto) 0 % (0-2.5); Eosinophils % (Auto) 0 % (0-10); Hematocrit 38.8 % (36.0-46.0); Hemoglobin 11.8 g/dL (12.0-16.0); Immature Granulocytes % (Auto) 0 % (0-0); Immature Granulocytes Auto 0.03 Thou/mm3 (0.00-0.00); Lymphocytes # (Auto) 0.9 Thou/mm3 (1.0-4.8); Lymphocytes % (Auto) 12 % (10-50); Mean Corpuscular HGB Conc 30.4 g/dl (31.0-37.0); Mean Corpuscular Hemoglobin 31.8 pg (25.0-35.0); Mean Corpuscular Volume 105 fL (80-100); Monocytes # (Auto) 0.6 Thou/mm3 (0.0-0.8); Monocytes % (Auto) 8 % (0-12); Neutrophils % (Auto) 79 % (37-80); Nucleated Red Blood Cell % 0 /100 WBC (0); Platelet Count 107 Thou/mm3 (140-440); RDW Standard Deviation 51.1 fL (36.4-46.3); Red Blood Count 3.71 Miln/mm3 (4.00-5.20); White Blood Count 7.7 Thou/mm3 (3.6-11.0)
[2024-11-14 08:55] LABS: Anion Gap 1 (7-16); BUN/Creatinine Ratio 42 Ratio (12-20); Blood Urea Nitrogen 21 mg/dL (9-23); Calcium 9.7 mg/dL (8.3-10.6); Carbon Dioxide 39.8 mMol/L (20.0-31.0); Chloride 105 mMol/L (98-107); Creatinine (Component) 0.5 mg/dL (0.6-1.3); Estimated Creatinine Clearance 62.2 mL/min (>60); Glucose 129 mg/dL (74-106); Osmolality,Calculated 295 (275-295); Potassium 4.9 mMol/L (3.4-5.1); Sodium 146 mMol/L (136-145); eGFR > 60 See Note
[2024-11-14] MEDS: FOLIC ACID INJ 1 MG/0.2 ML IVP (09:32)
[2024-11-14] MEDS: PANTOPRAZOLE INJ 40 MG VIAL IV (09:32)
[2024-11-14] MEDS: DEXAMETHASONE SOD PHOS INJ 4 MG/ML VIAL IV ×2 (09:32→20:17)
[2024-11-14] MEDS: AZITHROMYCIN INJ 500 MG in SODIUM CHLORIDE 0.9% 250 ML 250 ML 250 MG IV (09:33)
[2024-11-14] MEDS: NICOTINE PATCH 14 MG/24 HR PATCH.TD24 TOP (09:33)
--- NOTE | 2024-11-14 11:52 | PC.SS ---
ENVIRONMENTAL RESEARCH SCIENTIST informed [facility] staff, Anika Blanchard; that patient will require BI-PAP upon discharge. [facility] staff confirmed that SNF will order BI-PAP upon submittal of BI-PAP settings. ENVIRONMENTAL RESEARCH SCIENTIST submitted BI-PAP settings to SNF on [facility].
--- NOTE | 2024-11-14 12:45 | PC.SS ---
Updated clinicals submitted on [facility] to [facility].
--- NOTE | 2024-11-14 13:36 | ESDS_ITS ---
<Statement entered by Lane Gonsalez MD - 11/14/24 15:05> Patient was examined with the team including attending physician. Note reviewed, I agree with the discharge plan as documented. - Lane Gonsalez M.D. PGY2 Disclaimer: The document below may not be free of grammatical/phonetic/typographic errors due to use of voice recognition software. This does not dissuade from the commitment to providing health care with the patient's best interest in mind. Planned Discharge Date 11/14/24 DS: Providers Provider Date of admission: 11/10/24 00:15 Primary care physician: Physician No Primary/Family Admitting Provider: Sarbjit Cervantes MD Attending Provider on Admission: Bryan Nuñez DO Consults: 11/09/24 21:44 Consult to Neurology / Tele-Neurology Routine Comment: Consulting Provider: [facility] 11/09/24 23:57 Referral Physical Therapy Stat Comment: Physician Instructions: 11/10/24 10:16 Referral Speech Therapy Routine Comment: swallow eval 11/10/24 13:24 Consult to Neurology / Tele-Neurology Routine Comment: Consulting Provider: Moisés De Luna 11/12/24 15:46 Referral Hospice Routine Comment: Attending Provider on DC: Bryan Nuñez DO Discharging Provider: Bryan Nuñez DO DS: Diagnosis Problem List Completed Was Problem List Reviewed/Reconciled?: Yes Hospital Course Hospital Course Hospital course: Randi is a 79-year-old female with a past medical history of chronic bronchiectasis with scarring, hypothyroidism, hypertension, dementia and depression who was admitted to [facility] on November 09, 2024 for acute encephalopathy and acute hypoxic hypercarbic respiratory failure status post unwitnessed fall at SNF. Of note patient was recently discharged in late August 2024 for RHONDA. Pt came to the ER afebrile, and oxygen saturation at 85 percent room air, HR 90s, SBP 220s. Pertinent labs showed leukocytosis, pH 7.18, pCO2 of 93. Teleneuro was consulted in which patient and returned NIHSS score of 20. Medicine was consulted and patient was admitted to floors. While patient was on the floors encephalopathy was worked up in addition to neurology being consulted. Patient had additional scans including scans for fracture and lumbar and thoracic spine and including CT head and MRA brain. MRA brain and CT head were unremarkable for midline shift, mass effect or acute stroke/hemorrhage. Lumbar and thoracic spine did not show any acute fracture. Patient continued to be altered and encephalopathy was attributed to carbon dioxide narcosis. Patient was continued put on BiPAP and got blood gases which persistently showed pCO2 of 70s and acidosis. Family decided to consider hospice for patient, however patient to continue to improve from a mental status standpoint however blood gases continue to show, toxic levels of 70s. After patient improvement, patient's family decided to not pursue with hospice referred to be discharged home. She was recommended to follow-up with their outpatient doctor and the following discharge instructions. She will be discharged with BiPAP machine upon when she goes to the SNF. #Acute encephalopathy secondary to carbon dioxide narcosis #Acute hypoxic hypercarbic respiratory failure #Respiratory acidosis without adequate compensation #History of bronchiectasis #CAP #COPD exacerbation #Fall #Stroke rule out #Cervical neck fracture- rulded out #Lumbar or thoracic spinal fracture-ruled out #History of dementia #History of depression #History of hypothyroidism #Hx of GERD Discharge instructions: Continue home oxygen during day, CPAP at night if able to tolerate. Use albuterol for SOB or wheezing. Take prednisone 2 tabs daily for 6 days. Use Trelegy inhaler 1 puff daily. Continue other home medications as prescribed. Follow up with PCP within 2 weeks. Patient seen and care discussed with my senior resident, Dr. Gonsalez, and my attending physician, Dr. Savannah Rausch, PGY-1 Time Spent with Patient Time attestation: Total time spent providing and/or coordinating discharge services: Time spent: Greater than 30 minutes Exam Vital Signs Temp Pulse Resp BP Pulse Ox O2 Del Method O2 Flow Rate 97.7 F 108 H 24 H 133/74 H 100 BiPAP 2 11/14/24 12:11/14/24 12:27 11/14/24 12:27 11/14/24 12:00 11/14/24 12:11/14/24 12:11/14/24 12: FiO2 30 11/14/24 07:04 Narrative Exam General: AAOx1, opening eyes, able to answer some questions HEENT: Limited, poor dentition, Purpura patch surrounding right orbital area Cardiovascular: S1, S2, radial pulses +2 bilat, RRR Pulmonary: IPAP 14, EPAP 6, respiratory rate 24, FiO2 of 30 on BiPAP GI: No tenderness to light or deep palpitation, no guarding, rigidity, rebound tenderness or distension : Irvin catheter present Extremities: No presence of trace or pitting edema in lower extremities bilaterally, dorsalis pedis pulses +2 bilaterally Neuro: AAOx1, limited motor and sensory exam due to patient being weak Psych: Unable to cooperate fully Discharge Plan Plan Patient Disposition: Xfer Skilled Nsg Fac (SNF) Patient condition on transfer: Stable Care Plan Goals: Continue home oxygen during day, CPAP at night if able to tolerate. Use albuterol for SOB or wheezing. Take prednisone 2 tabs daily for 6 days. Use Trelegy inhaler 1 puff daily. Continue other home medications as prescribed. Follow up with PCP within 2 weeks. Prescriptions/Referrals Prescriptions/Med Rec: New albuterol sulfate 90 mcg/actuation aerosol powdr breath activated 1 inh inhalation QID PRN (Reason: shortness of breath or wheezing) Qty: 1 0RF prednisone 20 mg tablet 40 mg PO QDAY 6 Days Qty: 12 0RF Taper: Prednisone Taper 20 mg DAILY for 2 Days and 0 Hour 10 mg DAILY for 2 Days and 0 Hour 5 mg DAILY for 7 Days and 0 Hour Trelegy Ellipta 100-62.5-25 mcg blister with device 1 inh inhalation QDAY Qty: 60 0RF Continued pantoprazole 40 mg tablet,delayed release (DR/EC) 40 mg PO DAILY donepezil [Aricept] 10 mg Tablet 10 mg PO ONCE HS mirtazapine 15 mg tablet 15 mg PO HS Patient Comments: take 1 tablet by mouth at bedtime levothyroxine 25 mcg tablet 25 mcg PO DAILY Referrals: No Primary/Family,Physician [Primary Care Provider] - Patient/Caregiver Discharge Instructions Discharge Activity: resume usual activities Education Materials: Chest and Lung Problems, Preventing Pneumonia Print Language: Japanese Stand Alone Forms: [facility] Award Info., Patient Portal Info Letter Discharge Order Discharge Orders: Discharge (Routine); Ordered 11/14/24 Ordered By: Lane Gonsalez Quality Discharge Quality Measures VTE prophylaxis (SCDs) Attestestation Attestation I have discussed and was present for the essential components of the discharge history, physical examination, diagnosis, and discharge treatment plan with the resident. I agree with the patient's discharge care as documented by the resident and amended herein by me. Lizandro Nuñez DO. The patient understood all discharge instructions, all questions were answered satisfactorily. The patient was instructed to return to the Emergency Department is symptoms worsened or persisted. Patient was stable, afebrile and tolerating p.o. intake at time of discharge back to SNF. Patient will also require BiPAP at night, hospice care was discussed with the family due to the likely progressive nature of the patient's pulmonary disease and likely repeat hospital visits however they decided to defer at this time, the patient was however back to her baseline at time of discharge. Although this document has been carefully reviewed, there may still be some phonetic and other typographical errors. These errors are purely grammatical due to imperfections in the software program and should not be construed in any way to compromise the substance of the patient's medical care during this visit.
--- NOTE | 2024-11-14 14:16 | ESPR_ITS ---
Documentation for date of: 11/14/24 Subjective Subjective Interval history: Patient seen and examined this AM. No changes from yesterday. No events overnight. Able to look at you however does not answer or follow verbal commands. Likely DC to SNF today. Exam Vital Signs Temp Pulse Resp BP Pulse Ox O2 Del Method O2 Flow Rate 97.7 F 108 H 24 H 133/74 H 100 BiPAP 2 11/14/24 12:00 11/14/24 12:11/14/24 12:11/14/24 12:11/14/24 12:11/14/24 12:11/14/24 12: FiO2 30 11/14/24 07:04 Narrative Exam General: unable to follow verbal command, in cervical collar HEENT: Limited, poor dentition, in cervical collar. Purpura patch surrounding right orbital area Cardiovascular: S1, S2, radial pulses +2 bilat, RRR Pulmonary: CTAB bilat no cough, no wheezing GI: No tenderness to light or deep palpitation, no guarding, rigidity, rebound tenderness or distension Extremities: No presence of trace or pitting edema in lower extremities bilaterally, dorsalis pedis pulses +2 bilaterally Neuro: limited exam, awake, able to smile, look around, unable to follow commands. Psych: Unable to cooperate fully Objective Labs 11/15/24 05:02 11/15/24 05:02 Labs: Laboratory Results - last 24 hr 11/14/24 08:15 WBC 7.7 RBC 3.71 L Hgb 11.8 L Hct 38.8 MCV 105 H MCH 31.8 MCHC 30.4 L RDW Std Deviation 51.1 H Plt Count 107 L D Neut % (Auto) 79 Lymph % (Auto) 12 [place] % (Auto) 8 Eos % (Auto) 0 Baso % (Auto) 0 Neut # (Auto) 6.0 Lymph # (Auto) 0.9 L [place] # (Auto) 0.6 Eos # (Auto) 0.0 Baso # (Auto) 0.0 Immature Gran # (Auto) 0.03 H Absolute Nucleated RBC 0.00 Immature Gran % 0 Nucleated RBC % 0 VBG pH 7.34 VBG pCO2 73 H VBG pO2 42 D VBG O2 Sat (Cathie) 84 L VBG Base Excess 10 H Sodium 146 H Potassium 4.9 Chloride 105 Carbon Dioxide 39.8 H Anion Gap 1 L BUN 21 Creatinine 0.5 L Estim Creat Clear Calc 62.2 eGFR > 60 BUN/Creatinine Ratio 42 H Glucose 129 H Calculated Osmolality 295 Calcium 9.7 ABG Interpretation ABG results: 11/09/24 11/10/24 11/10/24 22:42 02:50 05:15 ABG pH 7.18 L* 7.20 L ABG pCO2 93 H* 82 H* D ABG pO2 159 H 110 H D ABG HCO3 35 H 32 H ABG O2 Saturation 99 H 98 ABG Base Excess 3 2 VBG pH 7.21 L VBG pCO2 81 H VBG pO2 32 VBG Base Excess 2 11/10/24 11/10/24 11/11/24 10:58 15:48 05:05 ABG pH 7.13 L* 7.12 L* ABG pCO2 96 H* D 100 H* ABG pO2 162 H D 258 H D ABG HCO3 32 H 33 H ABG O2 Saturation 100 H 100 H ABG Base Excess 0 1 VBG pH 7.43 VBG pCO2 38 D VBG pO2 42 VBG Base Excess 1 11/11/24 11/11/24 11/12/24 08:17 12:10 08:26 ABG pH 7.35 D ABG pCO2 63 H D ABG pO2 53 L* D ABG HCO3 35 H ABG O2 Saturation 91 ABG Base Excess 8 H VBG pH 7.49 7.29 L VBG pCO2 39 76 H D VBG pO2 55 40 VBG Base Excess 6 H 7 H 11/12/24 11/13/24 11/14/24 11:00 05:03 08:15 ABG pH ABG pCO2 ABG pO2 ABG HCO3 ABG O2 Saturation ABG Base Excess VBG pH 7.27 L 7.30 L 7.34 VBG pCO2 77 H 72 H 73 H VBG pO2 46 69 H D 42 D VBG Base Excess 6 H 8 H 10 H Quality Measures Quality Measures none Advance care planning discussed with:: other Assessment & Plan Assessment Current Active Medications: Generic Name Dose Route Start Last Admin Trade Name Freq PRN Reason Stop Dose Admin Albuterol/Ipratropium 3 ml 11/10/24 13:00 11/14/24 12:26 Albuterol/Ipratropium (Duoneb) Rt Essence 3 Ml Nebu INH 12/10/24 12:59 3 ml Q6HRRT SANDRA Administration Atorvastatin Calcium 40 mg 11/10/24 21:00 11/13/24 20:19 Atorvastatin Calcium 20 Mg Tablet PO 12/10/24 20:59 40 mg HS SANDRA Administration Azithromycin 500 mg 11/15/24 09:00 Azithromycin 250 Mg Tablet PO 11/18/24 08:59 QDAY SANDRA Dexamethasone Sodium Phosphate 4 mg 11/10/24 21:00 11/14/24 09:32 Dexamethasone Sod Phos Inj 4 Mg/Ml Vial IV 12/10/24 20:59 4 mg BID SANDRA Administration Protocol Dextrose 25 ml 11/12/24 07:47 Dextrose 50%-Water Inj 50 Ml Syringe IV 12/12/24 07:46 Q15MIN PRN BG 50-70 responsive npo pt Dextrose 50 ml 11/12/24 07:47 Dextrose 50%-Water Inj 50 Ml Syringe IV 12/12/24 07:46 Q15MIN PRN BG <50 OR BG <70 & pt unresponsive Folic Acid 1 mg 11/11/24 09:00 11/14/24 09:32 Folic Acid Inj 1 Mg/0.2 Ml IVP 12/11/24 08:59 1 mg QDAY SANDRA Administration Glucagon 1 mg 11/12/24 07:47 Glucagon Inj 1 Mg Vial IM Q15MIN PRN BG <70, and no IV access Ceftriaxone Sodium 1,000 mg/ 50 mls @ 100 mls/hr 11/10/24 21:00 11/13/24 20:19 Sodium Chloride IV 11/17/24 20:59 100 mls/hr HS SANDRA Administration Ketorolac Tromethamine 30 mg 11/10/24 10:17 11/13/24 14:40 Ketorolac Inj 30 Mg/Ml Vial IVP 11/15/24 10:16 30 mg Q6HR PRN Administration Pain 4-10 Labetalol HCl 10 mg 11/10/24 00:09 Labetalol Inj 5 Mg/Ml Vial 20 Ml IVP 12/10/24 05:59 Q6HR PRN SBP > 200 Levothyroxine Sodium 25 mcg 11/10/24 09:00 11/14/24 05:37 Levothyroxine Sodium 25 Mcg Tablet PO 12/10/24 08:59 25 mcg ACBR SANDRA Administration Lorazepam 0.5 mg 11/11/24 17:30 Lorazepam 2 Mg/Ml Vial IVP 11/16/24 17:29 X1 PRN Agitation MRI Nicotine 14 mg 11/10/24 10:30 11/14/24 09:33 Nicotine Patch 14 Mg/24 Hr Patch.Td24 TOP 12/10/24 10:29 14 mg QDAY SANDRA Administration Ondansetron HCl 4 mg 11/09/24 21:44 Ondansetron Inj 2 Mg/Ml Inj 2 Ml IV 12/09/24 21:43 Q4HR PRN NAUSEA OR VOMITING Pantoprazole Sodium 40 mg 11/15/24 09:00 Pantoprazole 40 Mg Tablet PO 12/15/24 08:59 QDAY SANDRA Sennosides 2 tab 11/09/24 23:57 Senna Tablet PO 12/09/24 23:56 BID PRN CONSTIPATION Protocol Plan #Acute encephalopathy: likely metabolic/hypoxic/hypercapnenia #Cerebral vascular accident, ruled out Assessment: Patient is altered at bedside. Unable to follow verbal commands. Etiology likely could be due to CO2 narcosis due to elevated levels of pCO2. CT head negative. There was a concern for a cervical neck fracture however radiology report came back negative. MRI brain without acute stroke, prominent chronic white matter changes. Recommendations: Poor prognosis -Family wants to hold off On hospice care -patient will be DC to SNF #History of dementia #History of depression Recommendations: Continue to hold donezepil and mirtazapine due to encephalopathy at this point Patient's care was discussed with my attending physician, Dr. Calixto Ren MD Internal Medicine PGY-3 Attending Provider Attestation/Addendum I personally have seen and examined the patient at the bedside and agree with resident findings, assessment and plan of care. Continue with supportive care. Patient's family is not ready to pursue comfort care or hospice. Will be looking into discharging to rehab.
--- NOTE | 2024-11-14 16:31 | PC.NURSE ---
Dr. Gonsalez notified last BM 11/08
--- NOTE | 2024-11-14 16:58 | PC.SS ---
STC contacted POINT OF SALE ASSOCIATE requesting updated BI-PAP setting. STC provided following as requested: Inspiration-14 Exspiration-6. Respiratory rate is 24 and FIO2 is 30%. Settings submitted on [facility]. Diagnosis Hypoxia ICD R09.02
--- NOTE | 2024-11-14 17:02 | PC.SS ---
PSYCHOLOGY TECHNICIAN informed by [facility] that insurance will deny patient's skilled need due to the patient's inability to participate with physical therapy due to change of condition, AMS. PSYCHOLOGY TECHNICIAN updated SNF staff, Anika Blanchard. Patient to return to [facility] under skilled nursing designation.
[2024-11-14] MEDS: LACTULOSE SYRUP 20 GM/30 ML UDC 10 GM PO (18:10)
[2024-11-14] MEDS: KETOROLAC INJ 30 MG/ML VIAL IVP (20:17)
[2024-11-14] MEDS: cefTRIAXone 1,000 MG in SODIUM CHLORIDE 0.9% (Popper) 50 ML 100 MG IV (20:17)
[2024-11-14] MEDS: ATORVASTATIN CALCIUM 20 MG TABLET 40 MG PO (20:17)
[2024-11-15] VITALS (10 sets, daily range): BP systolic 131–163; BP diastolic 72–96; PULSE 95–138; RESP 13–98; TEMP 36.1–37; O2SAT 95–100
[2024-11-15] MEDS: ALBUTEROL/IPRATROPIUM (Duoneb) RT SOL 3 ML NEBU INH ×3 (01:20→12:46)
[2024-11-15] MEDS: LEVOTHYROXINE SODIUM 25 MCG TABLET PO (05:15)
[2024-11-15 05:52] LABS: Basophils % (Auto) 0 % (0-2.5); Eosinophils % (Auto) 0 % (0-10); Hematocrit 36.5 % (36.0-46.0); Hemoglobin 11.6 g/dL (12.0-16.0); Immature Granulocytes % (Auto) 0 % (0-0); Immature Granulocytes Auto 0.02 Thou/mm3 (0.00-0.00); Lymphocytes # (Auto) 0.7 Thou/mm3 (1.0-4.8); Lymphocytes % (Auto) 11 % (10-50); Mean Corpuscular HGB Conc 31.8 g/dl (31.0-37.0); Mean Corpuscular Hemoglobin 31.4 pg (25.0-35.0); Mean Corpuscular Volume 99 fL (80-100); Monocytes # (Auto) 0.4 Thou/mm3 (0.0-0.8); Monocytes % (Auto) 7 % (0-12); Neutrophils # (Auto) 5.2 Thou/mm3 (1.8-7.7); Neutrophils % (Auto) 83 % (37-80); Nucleated Red Blood Cell % 0 /100 WBC (0); Platelet Count 131 Thou/mm3 (140-440); RDW Standard Deviation 46.1 fL (36.4-46.3); White Blood Count 6.4 Thou/mm3 (3.6-11.0)
[2024-11-15 06:14] LABS: Anion Gap 3 (7-16); BUN/Creatinine Ratio 45 Ratio (12-20); Blood Urea Nitrogen 18 mg/dL (9-23); Calcium 9.5 mg/dL (8.3-10.6); Carbon Dioxide 36.7 mMol/L (20.0-31.0); Chloride 102 mMol/L (98-107); Creatinine (Component) 0.4 mg/dL (0.6-1.3); Estimated Creatinine Clearance 77.8 mL/min (>60); Glucose 137 mg/dL (74-106); Osmolality,Calculated 287 (275-295); Potassium 4.6 mMol/L (3.4-5.1); Sodium 142 mMol/L (136-145); eGFR > 60 See Note
[2024-11-15] MEDS: MIRTAZAPINE 15 MG TABLET PO (08:21)
[2024-11-15] MEDS: DEXAMETHASONE SOD PHOS INJ 4 MG/ML VIAL IV (08:21)
[2024-11-15] MEDS: AZITHROMYCIN 250 MG TABLET 500 MG PO (08:21)
[2024-11-15] MEDS: NICOTINE PATCH 14 MG/24 HR PATCH.TD24 TOP (08:23)
[2024-11-15] MEDS: FOLIC ACID INJ 1 MG/0.2 ML IVP (08:23)
[2024-11-15] MEDS: LACTULOSE SYRUP 20 GM/30 ML UDC PO (08:36)
[2024-11-15] MEDS: PANTOPRAZOLE INJ 40 MG VIAL IVP (09:56)
--- NOTE | 2024-11-15 10:04 | ESDS_ITS ---
<Statement entered by Lane Gonsalez MD - 11/15/24 10:05> Patient was examined with the team including attending physician. Note reviewed, I agree with the discharge plan as documented. - Lane Gonsalez MD PGY2 Disclaimer: The document may contain phonetic/typographic errors due to voice recognition software. These errors are purely due to imperfections in the software program and should not be misconstrued in any way to compromise the substance of the patient's medical care during this visit. Planned Discharge Date 11/15/24 DS: Providers Provider Date of admission: 11/10/24 00:15 Primary care physician: Physician No Primary/Family Admitting Provider: Sarbjit Cervantes MD Attending Provider on Admission: Bryan Nuñez DO Consults: 11/09/24 21:44 Consult to Neurology / Tele-Neurology Routine Comment: Consulting Provider: [facility] 11/09/24 23:57 Referral Physical Therapy Stat Comment: Physician Instructions: 11/10/24 10:16 Referral Speech Therapy Routine Comment: maryam castillo 11/10/24 13:24 Consult to Neurology / Tele-Neurology Routine Comment: Consulting Provider: Moisés De Luna 11/12/24 15:46 Referral Hospice Routine Comment: 11/14/24 15:57 Referral Speech Therapy Stat Comment: maryam castillo Attending Provider on DC: Bryan Nuñez DO Discharging Provider: Maria Del Rosario Phillips MD DS: Diagnosis Problem List Completed Was Problem List Reviewed/Reconciled?: Yes Hospital Course Hospital Course Hospital course: The patient is a 79-year-old female with a past medical history of chronic bronchiectasis), hypertension, dementia, hypothyroidism and depression who presented to the ED on 11/09/2024 from [facility] after an unwitnessed fall. The patient was also noted to have been hypoxic shortly after, presenting also with some confusion. In the ED, she is afebrile, saturating 95% on room air with elevated blood pressure, SBP in the 220s. Pertinent labs reviewed leukocytosis, respiratory acidosis with pCO2 of 73. Due to acute encephalopathy, teleneuro was consulted NIHSS was evaluated to be 20. The patient was admitted for acute hypoxic respiratory failure secondary community-acquired pneumonia with COPD exacerbation, with acute encephalopathy and a stroke workup to be done. Due to the fall, the patient had additional scans including cervical, lumbar and thoracic as well as an MRI per stroke protocol. CT head and brain MRI were negative and lumbar/thoracic spine CT did not show any acute fractures. Patient continued to be altered and encephalopathy due to hypercarbia and was placed on BiPAP, she was consistently acidotic. As the patient was not improving, family decided to consider hospice for patient. However mental status started to significantly improve and patient family decided to not pursue hospice and would rather discharge home/SNF. Today, bedside mental status is better, patient is able to respond to questions although still confused and able to follow simple commands. She is scheduled to be discharged to SNF, with a BiPAP machine ordered. #Acute encephalopathy #Acute hypoxic hypercarbic respiratory failure #Respiratory acidosis #COPD exacerbation #History of bronchiectasis #Community-acquired pneumonia #CVA ruled out #History of dementia Discharge instructions: Continue home oxygen during day, CPAP/BiPAP at night if able to tolerate. Use albuterol for SOB or wheezing. Take prednisone 2 tabs daily for 6 days. Use Trelegy inhaler 1 puff daily. Continue other home medications as prescribed. Follow up with PCP within 2 weeks. Case was discussed with Dr Gonsalez PGY-2 and attending physician, Dr Savannah Phillips MD PGY-1 Disclaimer: This note was dictated by speech recognition. Minor errors in industrial management teacher may be present due to voice recognition software. Status at Discharge Overall status at discharge: patient is progressing back to baseline Time Spent with Patient Time attestation: Total time spent providing and/or coordinating discharge services: 45mins Time spent: Greater than 30 minutes Exam Vital Signs Temp Pulse Resp BP Pulse Ox O2 Del Method O2 Flow Rate 98.6 F 101 H 27 H 154/72 H 100 Room Air 1 11/15/24 08:00 11/15/24 08:00 11/15/24 08:00 11/15/24 08:00 11/15/24 08:00 11/15/24 08:00 11/15/24 04:00 FiO2 30 11/15/24 04:00 Narrative Exam GENERAL: AAOX1, confused, but answers simple questions and can follow simple commands NEURO: QUALITY CONTROL ASSISTANT grossly intact, moves extremities x4 HEENT: Right eye has a bruise, with conjuctival and sclera injection. Moist mucosa. CARDIO: No chest pain on palpation. Heart RRR, no obvious murmurs PULM: No noted coughing/dyspnea. Lungs CTA B/L GI: Abdomen soft, nondistended, no pain on palpation. BSx4 URO/HOT PACKER:: No further abnormalities noted. SKIN/MSK/EXT: No wounds/rashes/edema/amputations, no pain on palpation. Pedal pulses present B/L Discharge Plan Plan Patient Disposition: Xfer Skilled Nsg Fac (SNF) Patient condition on transfer: Stable Care Plan Goals: Continue home oxygen during day, Bipap at night if able to tolerate. Use albuterol for SOB or wheezing. Take prednisone 2 tabs daily for 6 days. Use Trelegy inhaler 1 puff daily. Continue other home medications as prescribed. Follow up with PCP within 2 weeks. Prescriptions/Referrals Prescriptions/Med Rec: New albuterol sulfate 90 mcg/actuation aerosol powdr breath activated 1 inh inhalation QID PRN (Reason: shortness of breath or wheezing) Qty: 1 0RF prednisone 20 mg tablet 40 mg PO QDAY 6 Days Qty: 12 0RF Taper: Prednisone Taper 20 mg DAILY for 2 Days and 0 Hour 10 mg DAILY for 2 Days and 0 Hour 5 mg DAILY for 7 Days and 0 Hour Trelegy Ellipta 100-62.5-25 mcg blister with device 1 inh inhalation QDAY Qty: 60 0RF Continued pantoprazole 40 mg tablet,delayed release (DR/EC) 40 mg PO DAILY donepezil [Aricept] 10 mg Tablet 10 mg PO ONCE HS mirtazapine 15 mg tablet 15 mg PO HS Patient Comments: take 1 tablet by mouth at bedtime levothyroxine 25 mcg tablet 25 mcg PO DAILY Referrals: No Primary/Family,Physician [Primary Care Provider] - Patient/Caregiver Discharge Instructions Discharge Activity: resume usual activities Education Materials: Chest and Lung Problems, Preventing Pneumonia Print Language: Kenyan Stand Alone Forms: [email or web address] Award Info., Patient Portal Info Letter Discharge Order Discharge Orders: Discharge (Routine); Ordered 11/15/24 Ordered By: Bryan Nuñez Quality Discharge Quality Measures VTE prophylaxis Attestestation Attestation I have discussed and was present for the essential components of the discharge history, physical examination, diagnosis, and discharge treatment plan with the resident. I agree with the patient's discharge care as documented by the resident and amended herein by me. Lizandro Nuñez, DO. The patient understood all discharge instructions, all questions were answered satisfactorily. The patient was instructed to return to the Emergency Department is symptoms worsened or persisted. Patient was stable, afebrile and tolerating p.o. intake at time of discharge. Although this document has been carefully reviewed, there may still be some phonetic and other typographical errors. These errors are purely grammatical due to imperfections in the software program and should not be construed in any way to compromise the substance of the patient's medical care during this visit.
--- NOTE | 2024-11-15 10:08 | CHAP ---
Patient was prayed for outside of room by the Spiritual Care Volunteer.
--- NOTE | 2024-11-15 10:47 | PC.SS ---
Addendum entered by HARVINDER Ramirez 11/15/24 17:17: Provided nursing station to [facility] for ETA for transport. Bed side nurse and Mitra at [facility] aware it will be an evening d/c today to SNF. Addendum entered by HARVINDER Ramirez 11/15/24 16:49: [facility] transportation arranged. Reference number: [id number]. Pending ETA. Addendum entered by HARVINDER Ramirez 11/15/24 13:00: Per bed side nurse, the patient has not had a BM in a few days. RT's note was sent to [facility] via [employer], updated Mitra at [facility] to make aware. Original Note: SS follow up: Spoke with Mitra at [facility], they are requesting respiratory note to be amended for BIPAP order. Notified RT Ilana to communicate with Moses at [facility] to determine what is needed. Provided [facility] contact number.
--- NOTE | 2024-11-15 11:52 | EKG_ITS ---
[facility] Test Date: 2024-11-15 Pat Name: ELIU MICHEL Department: Room: 64A Gender: Female Electric Relay Tester: GUILLAUME : [id number] Requested By: Maria Del Rosario Phillips Order Number: [id number] Reading MD: Maria Del Rosario Phillips Measurements Intervals [place] Rate: 138 P: 52 OK: 121 QRS: 33 QRSD: 84 T: 56 QT: 262 QTc: 398 Interpretive Statements SINUS TACHYCARDIA MODERATE VOLTAGE CRITERIA FOR LVH, CONSIDER NORMAL VARIANT ABNORMAL RHYTHM ECG Compared to ECG 11/09/2024 22:15:46 Atrial abnormality no longer present /store/S0/[id number].pdf
[2024-11-15] MEDS: LACTULOSE SYRUP 20 GM/30 ML UDC 25 GM PO (13:39)
[2024-11-15] MEDS: SODIUM CHLORIDE 0.9% 250 ML 250 ML 999 ML IV (13:40)
--- NOTE | 2024-11-15 16:45 | PC.SS ---
SS update: patient ready for d/c, had a BM and voided after removal of azul. Spoke with patient's daughter, Carmen and she is agreeable with the d/c plan to [facility]. [facility] has confirmed they have BiPAP and can accept the patient this evening.
--- NOTE | 2024-11-15 19:33 | PC.NURSE ---
Notified Dr. Nuñez of HR 125 and BP 153/96, ok to still discharge. Report given to Paige SWANSON at [facility].
--- NOTE | 2024-11-15 19:41 | PC.NURSE ---
Notified CIA AGENT at [facility] about bipap at night and not tolerating well at night.
--- NOTE | 2024-11-15 23:48 | ESPR_ITS ---
Documentation for date of: 11/15/24 Subjective Subjective Interval history: Patient was seen in telemetry today. No changes reported. She is more awake, alert but nonverbal, not able to follow commands. Exam - Neurology Vital Signs Temp Pulse Resp BP Pulse Ox O2 Del Method O2 Flow Rate 97.6 F 127 H 24 H 149/92 H 96 Room Air 1 11/15/24 19:18 11/15/24 19:18 11/15/24 19:18 11/15/24 19:18 11/15/24 19:18 11/15/24 19:18 11/15/24 04:00 FiO2 30 11/15/24 04:00 Narrative Exam GENERAL APPEARANCE: Well hydrated, well-nourished in no acute distress. HEENT: Normocephalic, atraumatic, extraocular movements intact. Pupils: Equal reacting to light NECK: Supple, no JVD or bruits. CARDIOVASULAR: Heart: S1, S2 heard, regular without S3-S4 or murmur no rubs or gallops. LUNGS/CHEST: Clear to auscultation bilaterally. No rails, rhonchi, or wheezing. Normal inspection. ABDOMEN: Soft, nontender, with normal bowel sounds. No pulsatile masses. No rebound, rigidity, or guarding. Normal inspection and palpation. EXTREMITIES: Normal inspection and palpation. No edema, clubbing or cyanosis. SKIN: Warm and dry without rashes. Normal inspection. MUSCULOSKELETAL: No cervical, thoracic, lumbar or midline bony tenderness. Normal inspection. NEURO: Alert, awake. moves all extremities, limited exam as she does not follow commands. PSYCHIATRIC: Normal mood and affect. Objective Labs 11/15/24 05:02 11/15/24 05:02 Labs: Laboratory Results - last 24 hr 11/15/24 05:02 WBC 6.4 RBC 3.70 L Hgb 11.6 L Hct 36.5 MCV 99 MCH 31.4 MCHC 31.8 RDW Std Deviation 46.1 Plt Count 131 L D Neut % (Auto) 83 H Lymph % (Auto) 11 [place] % (Auto) 7 Eos % (Auto) 0 Baso % (Auto) 0 Neut # (Auto) 5.2 Lymph # (Auto) 0.7 L [place] # (Auto) 0.4 Eos # (Auto) 0.0 Baso # (Auto) 0.0 Immature Gran # (Auto) 0.02 H Absolute Nucleated RBC 0.00 Immature Gran % 0 Nucleated RBC % 0 Sodium 142 Potassium 4.6 Chloride 102 Carbon Dioxide 36.7 H Anion Gap 3 L BUN 18 Creatinine 0.4 L Estim Creat Clear Calc 77.8 eGFR > 60 BUN/Creatinine Ratio 45 H Glucose 137 H Calculated Osmolality 287 Calcium 9.5 ABG Interpretation ABG results: 11/09/24 11/10/24 11/10/24 22:42 02:50 05:15 ABG pH 7.18 L* 7.20 L ABG pCO2 93 H* 82 H* D ABG pO2 159 H 110 H D ABG HCO3 35 H 32 H ABG O2 Saturation 99 H 98 ABG Base Excess 3 2 VBG pH 7.21 L VBG pCO2 81 H VBG pO2 32 VBG Base Excess 2 11/10/24 11/10/24 11/11/24 10:58 15:48 05:05 ABG pH 7.13 L* 7.12 L* ABG pCO2 96 H* D 100 H* ABG pO2 162 H D 258 H D ABG HCO3 32 H 33 H ABG O2 Saturation 100 H 100 H ABG Base Excess 0 1 VBG pH 7.43 VBG pCO2 38 D VBG pO2 42 VBG Base Excess 1 11/11/24 11/11/24 11/12/24 08:17 12:10 08:26 ABG pH 7.35 D ABG pCO2 63 H D ABG pO2 53 L* D ABG HCO3 35 H ABG O2 Saturation 91 ABG Base Excess 8 H VBG pH 7.49 7.29 L VBG pCO2 39 76 H D VBG pO2 55 40 VBG Base Excess 6 H 7 H 11/12/24 11/13/24 11/14/24 11:00 05:03 08:15 ABG pH ABG pCO2 ABG pO2 ABG HCO3 ABG O2 Saturation ABG Base Excess VBG pH 7.27 L 7.30 L 7.34 VBG pCO2 77 H 72 H 73 H VBG pO2 46 69 H D 42 D VBG Base Excess 6 H 8 H 10 H Assessment & Plan Additional Assessment & Plan Additional Plan: #Acute encephalopathy: likely metabolic/hypoxic/hypercapnenia #Cerebral vascular accident, ruled out Assessment: Patient is altered at bedside. Unable to follow verbal commands. Etiology likely could be due to CO2 narcosis due to elevated levels of pCO2. CT head negative. There was a concern for a cervical neck fracture however radiology report came back negative. MRI brain without acute stroke, prominent chronic white matter changes. Overall Poor prognosis -Family wants to hold off On hospice care -patient will be DC to SNF #History of dementia #History of depression Resume donezepil and mirtazapine.
== END 2024-11-15 19:20 | disposition skilled nursing facility (03) | DRG 70 ==
LOC: SERX 11-10 00:36 → SERHOLD 11-10 00:45 → S3NX 11-10 03:46 → S2NX 11-11 06:26
PROVIDERS: Student in an Organized Health Care Education/Training Program; Admitting Provider Internal Medicine; Emergency Provider Emergency Medicine; Visit Provider Student in an Organized Health Care Education/Training Program
DX: G93.41 Metabolic encephalopathy (principal); J18.9 Pneumonia, unspecified organism; J96.01 Acute respiratory failure with hypoxia; J96.02 Acute respiratory failure with hypercapnia; J44.0 Chronic obstructive pulmonary disease with (acute) lower respiratory infection; J44.1 Chronic obstructive pulmonary disease with (acute) exacerbation; F03.94 Unspecified dementia, unspecified severity, with anxiety; E87.29 Other acidosis; F32.A Depression, unspecified; S09.90XA Unspecified injury of head, initial encounter; I10 Essential (primary) hypertension; W18.30XA Fall on same level, unspecified, initial encounter; E03.9 Hypothyroidism, unspecified; K21.9 Gastro-esophageal reflux disease without esophagitis; Z66 Do not resuscitate; J47.9 Bronchiectasis, uncomplicated; Z99.3 Dependence on wheelchair; Z87.01 Personal history of pneumonia (recurrent); Z87.891 Personal history of nicotine dependence; Z79.890 Hormone replacement therapy; Z88.5 Allergy status to narcotic agent; Z88.6 Allergy status to analgesic agent; Z51.5 Encounter for palliative care
CPT/HCPCS: 36415; 36600; 70450; 70480; 70544; 71045; 72125; 72128; 72131; 73030; 73562; 80048; 80053; 80061; 80069; 80076; 80307; 81001; 82803; 83735; 83880; 84100; 84145; 84439; 84443; 84484; 85025; 85610; 85730; 87081; 87086; 87811; 92526; 92610; 93005; 93225; 93306; 94640; 94660; 94664; 96360; 97162; 99285; A9270; J0456; J0696; J1100; J1815; J1885; J2060; J2470; J3420; J3475; J3490; J7030; J7050; J7999